=== PATIENT | female | born 1970 | race Caucasian/White ===

== ENCOUNTER 2021-05-29 18:17 | Emergency (ER) | payer SELFPAY ==
[~2021-05-29] VITALS: Ht 160 cm; Wt 70.0 kg
[2021-05-29] MEDS ORDERED: ONDANSETRON 4 MG/2 ML (SDV) Z0FRAN IVP STA (18:32)
[2021-05-29] MEDS ORDERED: PANTOPRAZOLE 40 MG (PROTONIX) VIAL IV STA (18:32)
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
[2021-05-29] MEDS ORDERED: NS IV 1000 ML 1,000 ML IV SCH (18:45)
[2021-05-29 18:54] LABS: BASOPHILS % (AUTO) 1 % (0-10); EOSINOPHILS % (AUTO) 1 % (0-10); HEMATOCRIT 42 % (35-52); HEMOGLOBIN 14.2 g/dL (11.5-16.0); LYMPHOCYTES # (AUTO) 1.5 X 10^3 (1.0-4.0); LYMPHOCYTES % (AUTO) 38 % (12-44); MEAN CORPUSCULAR HEMOGLOBIN 33 pg (25-34); MEAN CORPUSCULAR HGB CONC 34 g/dL (32-36); MEAN CORPUSCULAR VOLUME 98 fL (80-99); MEAN PLATELET VOLUME 10.7 fL (9.0-12.2); MONOCYTES # (AUTO) 0.2 X 10^3 (0.0-1.0); MONOCYTES % (AUTO) 6 % (0-12); NEUTROPHILS # (AUTO) 2.1 X 10^3 (1.8-7.8); NEUTROPHILS % (AUTO) 55 % (42-75); PLATELET COUNT 284 10^3/uL (130-400); WHITE BLOOD COUNT 3.9 10^3/uL (4.3-11.0)
[2021-05-29 18:57] LABS: HCG,QUALITATIVE URINE NEGATIVE (NEGATIVE)
[2021-05-29 18:58] LABS: BACTERIA,URINE NEGATIVE /HPF; BILIRUBIN,URINE NEGATIVE (NEGATIVE); CLARITY,URINE CLEAR; COLOR,URINE YELLOW; GLUCOSE, URINE (UA) NEGATIVE (NEGATIVE); KETONES,URINE NEGATIVE (NEGATIVE); LEUKOCYTE ESTERASE ,URINE NEGATIVE (NEGATIVE); NITRITE,URINE NEGATIVE (NEGATIVE); PH,URINE 8.5 (5-9); PROTEIN,URINE NEGATIVE (NEGATIVE); WBC,URINE 0-2 /HPF
[2021-05-29 19:03] LABS: AMPHETAMINE SCREEN, URINE NEGATIVE (NEGATIVE); BARBITURATE SCREEN URINE NEGATIVE (NEGATIVE); BENZODIAZEPINES SCREEN URINE NEGATIVE (NEGATIVE); CANNABINOID SCREEN, URINE POSITIVE (NEGATIVE); COCAINE SCREEN URINE NEGATIVE (NEGATIVE); METHADONE STAT NEGATIVE (NEGATIVE); METHAMPHETAMINE SCREEN URINE S NEGATIVE (NEGATIVE); OPIATE SCREEN URINE NEGATIVE (NEGATIVE); OXYCODONE STAT NEGATIVE (NEGATIVE); PROPOXYPHENE STAT NEGATIVE (NEGATIVE); TRICYCLIC ANTIDEPRESSANTS SCRE NEGATIVE (NEGATIVE)
[2021-05-29 19:11] LABS: BUN/CREATININE RATIO 13; CARBON DIOXIDE 29 MMOL/L (21-32); CHLORIDE 103 MMOL/L (98-107); CREATININE SERUM 0.78 MG/DL (0.60-1.30); GFR ESTIMATED 78; POTASSIUM 4.4 MMOL/L (3.6-5.0); SODIUM 141 MMOL/L (135-145)
[2021-05-29 19:12] LABS: ACETAMINOPHEN < 10 UG/ML (10-30); ALANINE AMINOTRANSFERASE 20 U/L (0-55); ALBUMIN 4.1 GM/DL (3.2-4.5); ALKALINE PHOSPHATASE 97 U/L (40-136); BILIRUBIN,TOTAL 0.4 MG/DL (0.1-1.0); CALCIUM 8.6 MG/DL (8.5-10.1); GLUCOSE 93 MG/DL (70-105); SALICYLATE < 0.3 MG/DL (5.0-20.0); TOTAL PROTEIN 6.8 GM/DL (6.4-8.2)
[2021-05-29] MEDS ORDERED: METOCLOPRAMIDE INJ 10 MG/2 ML (REGLAN) IVP STA (19:52)
[2021-05-29] MEDS ORDERED: diphenhydrAMINE 50 MG/ML INJ (BENADRYL) IVP STA (19:52)
[2021-05-29] MEDS ORDERED: MTC10T PO (20:02)
[2021-05-29 20:14] VITALS: BP 114/70
== END 2021-05-29 20:15 | disposition home or self-care (01) ==
LOC: ER FS 18:21
DX: F32.9 Major depressive disorder, single episode, unspecified (principal); F10.129 Alcohol abuse with intoxication, unspecified
CPT/HCPCS: 36415; 80053; 80306; 81000; 83690; 84703; 85025; 93005; 99284; G0480 ×3; 80320; 80329

== ENCOUNTER 2021-08-05 08:12 | Emergency (ER) | payer SELFPAY ==
[~2021-08-05] VITALS: Ht 165 cm; Wt 60.0 kg
[~2021-08-05 08:12] MED LIST: MTC10T PO
[2021-08-05 08:39] VITALS: BP 140/108
[2021-08-05] MEDS ORDERED: RX-LORAZEPAM (ATIVAN) 0.5 MG TAB PPK#4 PO STA (08:43)
[2021-08-05] MEDS ORDERED: HYDR50TA76 PO (08:48)
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
== END 2021-08-05 08:55 | disposition home or self-care (01) ==
LOC: EDUNIT# 08:12 → ER FS 08:15
DX: G47.01 Insomnia due to medical condition (principal); F41.9 Anxiety disorder, unspecified; Z79.899 Other long term (current) drug therapy

== ENCOUNTER 2021-08-27 14:42 | Emergency (ER) | payer SELFPAY ==
[~2021-08-27] VITALS: Ht 167.7 cm; Wt 68.0 kg
[~2021-08-27 14:42] MED LIST changes: +HYDR50TA76 PO
[2021-08-27] MEDS ORDERED: LORazepam INJ 2 MG/ML (ATIVAN) VIAL IVP STA ×2 (14:57→16:40)
[2021-08-27] MEDS ORDERED: NS IV 1000 ML 1,000 ML IV STA ×2 (14:57→15:38)
[2021-08-27 15:11] LABS: HEMATOCRIT 45 % (35-52); HEMOGLOBIN 15.5 g/dL (11.5-16.0); LYMPHOCYTES % (AUTO) 43 % (12-44); MEAN CORPUSCULAR HEMOGLOBIN 32 pg (25-34); MEAN CORPUSCULAR HGB CONC 35 g/dL (32-36); MEAN CORPUSCULAR VOLUME 93 fL (80-99); MEAN PLATELET VOLUME 10.2 fL (9.0-12.2); NEUTROPHILS % (AUTO) 47 % (42-75); PLATELET COUNT 262 10^3/uL (130-400); WHITE BLOOD COUNT 3.1 10^3/uL (4.3-11.0)
[2021-08-27 15:12] LABS: BASOPHILS # (AUTO) 0.1 10^3/uL (0.0-0.1); BASOPHILS % (AUTO) 2 % (0-10); EOSINOPHILS % (AUTO) 0 % (0-10); LYMPHOCYTES # (AUTO) 1.3 X 10^3 (1.0-4.0); MONOCYTES # (AUTO) 0.2 X 10^3 (0.0-1.0); MONOCYTES % (AUTO) 8 % (0-12); NEUTROPHILS # (AUTO) 1.4 X 10^3 (1.8-7.8)
[2021-08-27 15:14] LABS: BILIRUBIN,URINE NEGATIVE (NEGATIVE); CLARITY,URINE CLEAR; COLOR,URINE YELLOW; GLUCOSE, URINE (UA) NEGATIVE (NEGATIVE); KETONES,URINE NEGATIVE (NEGATIVE); LEUKOCYTE ESTERASE ,URINE NEGATIVE (NEGATIVE); NITRITE,URINE NEGATIVE (NEGATIVE); PROTEIN,URINE NEGATIVE (NEGATIVE)
--- NOTE | 2021-08-27 15:17 | ED General ---
General Chief Complaint: Substance Abuse Stated Complaint: TREMORS; COVID+ Source of Information: Patient, Family Exam Limitations: Intoxication History of Present Illness Date Seen by Provider: Aug 27, 2021 Time Seen by Provider: 14:43 Initial Comments 50 yo female presenting by private vehicle by family members with concerns for tremors and altered mental status. She was diagnosed with Covid 12-13 days ago. she has also been drinking Vodka heavily recently. Family advised the nurses that pt has history of problems with alcohol abuse and they found her at home next to an empty bottle of Vodka. She is anxious and twitching and flailing on the bed. Associated Systoms: No Chest Pain; Cough; No Diaphoresis, No Fever/Chills, No Headaches; Loss of Appetite, Malaise; No Nausea/Vomiting, No Rash, No Seizure; Shortness of Air; No Syncope; Weakness Allergies and Home Medications Allergies Coded Allergies: No Known Drug Allergies (Unverified , 05/29/21) Patient Home Medication List Home Medication List Reviewed: Yes Hydroxyzine HCl (Hydroxyzine HCl) 50 Mg Tablet, 50 MG PO DAILY PRN for SLEEP Prescribed by: KATE MCGARRY on 08/27/211815 Metoclopramide HCl (Metoclopramide HCl) 10 Mg Tablet, 10 MG PO Q6H PRN for NAUSEA/VOMITING Prescribed by: KATE MCGARRY on 05/29/212001 Review of Systems Review of Systems Constitutional: No fever; malaise EENTM: nose congestion Respiratory: cough, short of breath Cardiovascular: No chest pain Gastrointestinal: No nausea, No vomiting Genitourinary: No dysuria Musculoskeletal: no symptoms reported Skin: No rash Psychiatric/Neurological: Anxiety, Emotional Problems; Denies Seizure Hematologic/Lymphatic: Denies Blood Clots Difficult to obtain ROS and history from patient as she had to be redirected several times and was easily distracted before providing answers to questions Past Dqawhpf-Ftjcjy-Blspom Hx Patient Social History Tobacco Use?: No Smoking Status: Never a Smoker Substance use?: No Alcohol Use?: Yes Alcohol type: Hard Liquor Alcohol Frequency: Daily Pt feels they are or have been: No Past Medical History Surgery/Hospitalization HX: ANXIETY; DEPRESSION,Hypothyroid, Alcohol Abuse Surgeries: No Respiratory: No Cardiac: No Neurological: No Reproductive Disorders: No Genitourinary: No Gastrointestinal: No Musculoskeletal: No Endocrine: No HEENT: No Psychosocial: Yes Anxiety, PTSD, Depression Physical Exam Vital Signs Vital Signs - First Documented 08/27/21 14:45 Temp 36.7 Pulse 120 Resp 18 B/P (MAP) 140/103 (115) Pulse Ox 100 O2 Delivery Room Air Capillary Refill : Height, Weight, BMI Height: '" Weight: lbs. oz. kg; 22.00 BMI Method: General Appearance: Anxious, Other (twitching and flailing about on the bed, hyperventilating at times, disheveled appearance) HEENT: PERRL/EOMI, Pharynx Normal, Moist Mucous Membranes Neck: Full Range of Motion, Normal Inspection, Non Tender, Supple Respiratory: Chest Non Tender, Lungs Clear, Normal Breath Sounds, Other (hyperventilating at times) Cardiovascular: Normal Peripheral Pulses, Tachycardia Gastrointestinal: Normal Bowel Sounds, No Pulsatile Mass, Non Tender, Soft Rectal: Deferred Extremity: Normal Capillary Refill, Normal Inspection, Normal Range of Motion, No Calf Tenderness, No Pedal Edema Neurologic/Psychiatric: Alert, Other (anxious and not answering orientation questions) Skin: Normal Color, Warm/Dry Focused Exam Lactate Level 08/27/21 15:10: Lactic Acid Level 4.17*H 08/27/21 17:20: Lactic Acid Level 3.23*H Lactic Acid Level Laboratory Tests Test 08/27/21 15:10 08/27/21 17:20 Lactic Acid Level 4.17 MMOL/L (0.50-2.00) *H 3.23 MMOL/L (0.50-2.00) *H Progress/Results/Core Measures Suspected Sepsis SIRS Temperature: Pulse: Respiratory Rate: Laboratory Tests 08/27/21 15:02: White Blood Count 3.1L Blood Pressure / Mean: 08/27/21 15:10: Lactic Acid Level 4.17*H 08/27/21 17:20: Lactic Acid Level 3.23*H Laboratory Tests 08/27/21 15:02: Creatinine 0.76, Platelet Count 262, Total Bilirubin 0.4 Results/Orders Lab Results Laboratory Tests Test 08/27/21 14:58 08/27/21 15:02 08/27/21 15:10 08/27/21 17:20 Range/Units Urine Color YELLOW Urine Clarity CLEAR Urine pH 6.0 5-9 Urine Specific [place] 1.010 L 1.016-1.022 Urine Protein NEGATIVE NEGATIVE Urine Glucose (UA) NEGATIVE NEGATIVE Urine Ketones NEGATIVE NEGATIVE Urine Nitrite NEGATIVE NEGATIVE Urine Bilirubin NEGATIVE NEGATIVE Urine Urobilinogen 0.2 < = 1.0 MG/DL Urine Leukocyte Esterase NEGATIVE NEGATIVE Urine RBC (Auto) TRACE-I H NEGATIVE Urine RBC RARE /HPF Urine WBC NONE /HPF Urine Squamous Epithelial Cells RARE /HPF Urine Crystals PRESENT H /LPF Urine Amorphous Sediment FEW AIDE URATES H /LPF Urine Bacteria NEGATIVE /HPF Urine Casts NONE /LPF Urine Mucus SMALL H /LPF Urine Culture Indicated NO Urine Opiates Screen NEGATIVE NEGATIVE Urine Oxycodone Screen NEGATIVE NEGATIVE Urine Methadone Screen NEGATIVE NEGATIVE Urine Propoxyphene Screen NEGATIVE NEGATIVE Urine Barbiturates Screen NEGATIVE NEGATIVE Ur Tricyclic Antidepressants Screen NEGATIVE NEGATIVE Urine Phencyclidine Screen NEGATIVE NEGATIVE Urine Amphetamines Screen NEGATIVE NEGATIVE Urine Methamphetamines Screen NEGATIVE NEGATIVE Urine Benzodiazepines Screen NEGATIVE NEGATIVE Urine Cocaine Screen NEGATIVE NEGATIVE Urine Cannabinoids Screen NEGATIVE NEGATIVE White Blood Count 3.1 L 4.3-11.0 10^3/uL Red Blood Count 4.80 3.80-5.11 10^6/uL Hemoglobin 15.5 11.5-16.0 g/dL Hematocrit 45 35-52 % Mean Corpuscular Volume 93 80-99 fL Mean Corpuscular Hemoglobin 32 25-34 pg Mean Corpuscular Hemoglobin Concent 35 32-36 g/dL Red Cell Distribution Width 11.9 10.0-14.5 % Platelet Count 262 130-400 10^3/uL Mean Platelet Volume 10.2 9.0-12.2 fL Immature Granulocyte % (Auto) 0 % Neutrophils (%) (Auto) 47 42-75 % Lymphocytes (%) (Auto) 43 12-44 % Monocytes (%) (Auto) 8 0-12 % Eosinophils (%) (Auto) 0 0-10 % Basophils (%) (Auto) 2 0-10 % Neutrophils # (Auto) 1.4 L 1.8-7.8 X 10^3 Lymphocytes # (Auto) 1.3 1.0-4.0 X 10^3 Monocytes # (Auto) 0.2 0.0-1.0 X 10^3 Eosinophils # (Auto) 0.0 0.0-0.3 10^3/uL Basophils # (Auto) 0.1 0.0-0.1 10^3/uL Immature Granulocyte # (Auto) 0.0 0.0-0.1 10^3/uL D-Dimer 0.43 0.00-0.49 UG/ML Sodium Level 139 135-145 MMOL/L Potassium Level 4.0 3.6-5.0 MMOL/L Chloride Level 98 98-107 MMOL/L Carbon Dioxide Level 26 21-32 MMOL/L Anion Gap 15 H 5-14 MMOL/L Blood Urea Nitrogen 12 7-18 MG/DL Creatinine 0.76 0.60-1.30 MG/DL Estimat Glomerular Filtration Rate 95 BUN/Creatinine Ratio 16 Glucose Level 104 70-105 MG/DL Calcium Level 8.7 8.5-10.1 MG/DL Corrected Calcium 8.5 8.5-10.1 MG/DL Magnesium Level 2.1 1.6-2.4 MG/DL Total Bilirubin 0.4 0.1-1.0 MG/DL Aspartate Amino Transf (AST/SGOT) 143 H 5-34 U/L Alanine Aminotransferase (ALT/SGPT) 63 H 0-55 U/L Alkaline Phosphatase 135 40-136 U/L Troponin I < 0.30 <0.30 NG/ML Pro-B-Type Natriuretic Peptide 54.5 <75.0 PG/ML Total Protein 7.2 6.4-8.2 GM/DL Albumin 4.2 3.2-4.5 GM/DL Lipase 50 8-78 U/L Serum Test, Qualitative NEGATIVE NEGATIVE Salicylates Level < 0.3 L 5.0-20.0 MG/DL Acetaminophen Level < 10 L 10-30 UG/ML Serum Alcohol 342 *H <10 MG/DL Lactic Acid Level 4.17 *H 3.23 *H 0.50-2.00 MMOL/L Influenza Type A Antigen NEGATIVE NEGATIVE Influenza Type B Antigen NEGATIVE NEGATIVE SARS-CoV-2 RNA (RT-PCR) Not Detected Not Detecte My Orders Orders - KATE MCGARRY MD Ua Culture If Indicated (08/27/21 14:57) Cbc With Automated Diff (08/27/21 14:57) Comprehensive Metabolic Panel (08/27/21 14:57) Alcohol (08/27/21 14:57) Drug Screen Stat (Urine) (08/27/21 14:57) Acetaminophen (08/27/21 14:57) Salicylate (08/27/21 14:57) Ekg Tracing (08/27/21 14:57) Ed Iv/Invasive Line Start (08/27/21 14:57) Monitor-Rhythm Ecg Trace Only (08/27/21 14:57) Blood Culture (08/27/21 14:57) Lactic Acid Analyzer (08/27/21 14:57) Magnesium (08/27/21 14:57) Covid 19 Inhouse Test (08/27/21 14:57) Chest 1 View Ap/Pa Only (08/27/21 14:57) Ct Head Wo (08/27/21 14:57) Troponin I Fs (08/27/21 14:57) Probnp Fs (08/27/21 14:57) Isolation Central Supply Req (08/27/21 14:57) Hcg,Qualitative Serum (08/27/21 14:57) Fibrin Degradation Products (08/27/21 14:57) Lipase (08/27/21 14:57) Ns Iv 1000 Ml (Sodium Chloride 0.9%) (08/27/21 14:57) Lorazepam Injection (Ativan Injection) (08/27/21 14:57) Influenza A & B Antigens (08/27/21 15:38) Ns Iv 1000 Ml (Sodium Chloride 0.9%) (08/27/21 15:38) Ct Chest W (08/27/21 16:03) Iohexol Injection (Omnipaque 350 Mg/Ml 1 (08/27/21 16:15) Received Contrast (Hold Metformin- Contr (08/27/21 16:15) Sodium Chloride Flush (Catheter Flush Sy (08/27/21 16:15) Ns (Ivpb) (Sodium Chloride 0.9% Ivpb Bag (08/27/21 16:15) Lorazepam Injection (Ativan Injection) (08/27/21 16:40) Medications Given in ED Current Medications Medications Dose Ordered Sig/Manda Route Start Time Stop Time Status Last Admin Dose Admin Iohexol 75 ml ONCE ONCE IV 08/27/21 16:15 08/27/21 16:16 DC 08/27/21 16:25 75 ML Sodium Chloride 10 ml NEEDED PRN IV 08/27/21 16:15 08/27/21 16:25 10 ML Sodium Chloride 100 ml ONCE ONCE IV 08/27/21 16:15 08/27/21 16:16 DC 08/27/21 16:25 100 ML Vital Signs/I&O 08/27/21 14:45 Temp 36.7 Pulse 120 Resp 18 B/P (MAP) 140/103 (115) Pulse Ox 100 O2 Delivery Room Air Capillary Refill : Progress Note #1: Progress Note Obtain basic lab and urine and urine drug screen straight cath. Give IV fluids for hydration. Since family reports that she has been drinking alcohol and was found next to empty vodka bottle will give a milligram of Ativan to try and help with her anxiety and agitation. Since she was recently positive for COVID we'll really swab for that and influenza. Obtain a chest x-ray since she was complaining of shortness of breath although her oxygen saturations are 98 to 100%. She is hyperventilating at times. Obtain a CT scan of her head to evaluate for possible stroke, mass or tumor, bleeding, sinus infection, swelling. Blood cultures and lactic acid with her report of recent COVID infection and having mental status changes. Obtain electrocardiogram with cardiac labs to look for acute coronary syndrome or myocardial infarction or heart failure that might be contributing to her symptoms. Also in addition to the urine drug screen will obtain salicylate, aspirin, alcohol levels. Progress Note #2: Progress Note Labs show a mild drop in her white blood cell count to 3.1. She has no signs of UTI on her urinalysis. Her urine drug screen was negative. Her alcohol level was 342. She had negative salicylate and acetaminophen levels. Her chemistry panel did not demonstrate any acute coronary syndrome or elevation of the cardiac enzymes. Her LFTs were slightly elevated to go along with her alcohol history. Her D-dimer was negative. hCG serum test was negative as well. Her CT head showed some mild sinus disease. She had no acute intracranial process. Her chest x-ray did not show any acute infiltrate or effusion but she did have a density off of the right side and posterior side of her heart. Thought to be a benign cyst or benign structure but with no priors to compare to a CT scan of the chest was recommended. For her elevated lactic acid we'll give additional IV fluids for hydration. There is no definite source of infection so the lactic acidosis is likely due to alcohol intoxication and hyperventilation. 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 No acute significant finding otherwise. Patient more relaxed after 2nd dose of ativan but still asking for medicine for anxiety and sleep for home. When she was here just prior to she was prescribed 2 weeks worth of hydroxyzine to help with sleep. We will refill that prescription and advised the patient she needs to call Monday morning to get a follow-up appointment with the clinic. Counseled to not drink so much alcohol and to check with the clinic to see if she needed resources about helping to stop drinking Diagnostic Imaging Diagonstic Imaging: Xray Plain Films/CT/US/NM/MRI: chest Comments [facility] [place] [place] NAME: NELLY GALEANO [facility] REC#: [id number] PT STATUS: REG ER : 1970 PHYSICIAN: KATE MCGARRY MD ADMIT DATE: 08/27/21/ER FS Signed Date of Exam:08/27/21 CHEST 1 VIEW AP/PA ONLY INDICATION: Confusion. COMPARISON: No priors. FINDINGS: No infiltrate, failure pattern, effusion, or pneumothorax. No free air beneath the diaphragms. Hilar and mediastinal contours were normal. A lobulated density projects right lateral to the inferior right heart border. This is probably a pericardial cyst or other benign etiology; however, given the absence of priors to confirm its long-term stability, correlation with a chest CT suggested. IMPRESSION: 1. No acute appearing cardiopulmonary abnormality. 2. Abnormal contour along the inferior right heart border, likely incidental but confirmation with CT chest recommended. Dictated by: Dictated on workstation # [id number] Dict: 08/27/21 1537 Trans: 08/27/21 1546 [id number] Interpreted by: BRITTANY BOTELLO Electronically signed by: BRITTANY BOETLLO 08/27/21 1546 Reviewed: Reviewed by Me Diagonstic Imaging: CT Plain Films/CT/US/NM/MRI: head Comments [facility] [place] [place] NAME: NELLY GALEANO MED REC#: [id number] PT STATUS: REG ER : 1970 PHYSICIAN: KATE MCGARRY MD ADMIT DATE: 08/27/21/ER FS Draft Date of Exam:08/27/21 CT HEAD WO INDICATION: Altered mental status. TECHNIQUE: Multiple contiguous axial images were obtained through the brain without the use of intravenous contrast. Auto Exposure Controls were utilized during the CT exam to meet ALARA standards for radiation dose reduction. COMPARISON: There is no prior study for comparison. FINDINGS: There were no extra-axial fluid collections. No intracranial hemorrhage. No intracranial mass or mass effect. No midline shift. The ventricles are normal in size and position. There were no focal parenchymal abnormalities in the brain. Calvarial windows were unremarkable. There is opacification of the right frontal sinus. Remaining sinuses appeared clear. Mastoid air cells are well aerated. Orbital contents were unremarkable. IMPRESSION: No acute intracranial abnormality. Note is made of opacification of the right frontal sinus. Dictated on workstation # [id number] Dict: 08/27/21 1535 Trans: 08/27/21 1544 [id number] Interpreted by: ZOHRA STEPHEN MD Electronically signed by: Reviewed: Reviewed by Pa Diagonstic Imaging: CT Plain Films/CT/US/NM/MRI: chest Comments [facility] [place], [place] NAME: NELLY GALEANO [facility] REC#: [id number] PT STATUS: REG ER : 1970 PHYSICIAN: KATE MCGARRY MD ADMIT DATE: 08/27/21/ER FS Signed Date of Exam:08/27/21 CT CHEST W EXAMINATION: CT chest with intravenous contrast. TECHNIQUE: Multiple contiguous axial images were obtained through the chest after the uneventful administration of intravenous contrast. All CT scans use one or more of the following dose optimizing techniques: Automated exposure control, MA and/or KvP adjustment based on patient size and exam type or iterative reconstruction. HISTORY: Abnormal chest radiograph. COMPARISON: None available. FINDINGS: There is no edema or pneumonia. No pleural effusion. No pneumothorax. No suspicious nodules. There is no axillary or supraclavicular lymphadenopathy. There is no mediastinal lymphadenopathy. Heart size is normal. There are no coronary artery calcifications. No pericardial effusion. Aorta is normal in caliber. The abnormality along the right heart border on prior radiograph is a small fat-containing foramen of Morgagni's hernia. Limited views of the upper abdomen show focal fat at the falciform ligament of the liver. There are no suspicious osseous lesions. IMPRESSION: 1. 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 Dictated by: Dictated on workstation # [id number] Dict: 08/27/21 1636 Trans: 08/27/21 1651 [id number] Interpreted by: BELLO SLOAN MD Electronically signed by: BELLO SLOAN MD 08/27/21 1651 Departure Impression Primary Impression: Alcohol intoxication Qualified Codes: F10.920 - Alcohol use, unspecified with intoxication, uncomplicated Additional Impressions: Anxiety Insomnia Qualified Codes: G47.00 - Insomnia, unspecified Disposition: 01 HOME, SELF-CARE Condition: Stable Departure-Patient Inst. Decision time for Depature: 18:13 Referrals: [facility] (PCP/Family) Primary Care Physician Patient Instructions: ALCOHOL AND SUBSTANCE ABUSE, Anxiety, Adult ED, Alcohol Intoxication ED Add. Discharge Instructions: Try the medicine for anxiety and to help you rest. Call the [facility] clinic at [phone] to get an appointment for follow up and they can help you with your insomnia, anxiety and depression. They could help refer you to alcohol and drug treatment if you wanted additional assistance with that as well. All discharge instructions reviewed with patient and/or family. Voiced understanding. Scripts Hydroxyzine HCl (Hydroxyzine HCl) 50 Mg Tablet 50 MG PO DAILY PRN for SLEEP for 14 Days, #14 TAB Prov: KATE MCGARRY MD 08/27/21 KATE MCGARRY MD Aug 27, 2021 15:17
[2021-08-27 15:26] LABS: AMORPHOUS SEDIMENT,UR FEW AMOR URATES /LPF; BACTERIA,URINE NEGATIVE /HPF; RBC,URINE RARE /HPF; SQUAMOUS EPITHELIAL CELL,UR RARE /HPF
[2021-08-27 15:28] LABS: AMPHETAMINE SCREEN, URINE NEGATIVE (NEGATIVE); BARBITURATE SCREEN URINE NEGATIVE (NEGATIVE); BENZODIAZEPINES SCREEN URINE NEGATIVE (NEGATIVE); CANNABINOID SCREEN, URINE NEGATIVE (NEGATIVE); COCAINE SCREEN URINE NEGATIVE (NEGATIVE); METHADONE STAT NEGATIVE (NEGATIVE); METHAMPHETAMINE SCREEN URINE S NEGATIVE (NEGATIVE); OPIATE SCREEN URINE NEGATIVE (NEGATIVE); OXYCODONE STAT NEGATIVE (NEGATIVE); PROPOXYPHENE STAT NEGATIVE (NEGATIVE); TRICYCLIC ANTIDEPRESSANTS SCRE NEGATIVE (NEGATIVE)
[2021-08-27 15:31] LABS: ACETAMINOPHEN < 10 UG/ML (10-30); ALANINE AMINOTRANSFERASE 63 U/L (0-55); ALBUMIN 4.2 GM/DL (3.2-4.5); ALKALINE PHOSPHATASE 135 U/L (40-136); BILIRUBIN,TOTAL 0.4 MG/DL (0.1-1.0); BUN/CREATININE RATIO 16; CALCIUM 8.7 MG/DL (8.5-10.1); CARBON DIOXIDE 26 MMOL/L (21-32); CHLORIDE 98 MMOL/L (98-107); CREATININE SERUM 0.76 MG/DL (0.60-1.30); GFR ESTIMATED 95; GLUCOSE 104 MG/DL (70-105); MAGNESIUM 2.1 MG/DL (1.6-2.4); SALICYLATE < 0.3 MG/DL (5.0-20.0); SODIUM 139 MMOL/L (135-145); TOTAL PROTEIN 7.2 GM/DL (6.4-8.2)
--- NOTE | 2021-08-27 15:41 | Diagnostic Imaging Report ---
INDICATION: Confusion. COMPARISON: No priors. FINDINGS: No infiltrate, failure pattern, effusion, or pneumothorax. No free air beneath the diaphragms. Hilar and mediastinal contours were normal. A lobulated density projects right lateral to the inferior right heart border. This is probably a pericardial cyst or other benign etiology; however, given the absence of priors to confirm its long-term stability, correlation with a chest CT suggested. IMPRESSION: 1. No acute appearing cardiopulmonary abnormality. 2. Abnormal contour along the inferior right heart border, likely incidental but confirmation with CT chest recommended. Dictated by: Dictated on workstation # [id number]
--- NOTE | 2021-08-27 15:44 | Diagnostic Imaging Report ---
INDICATION: Altered mental status. TECHNIQUE: Multiple contiguous axial images were obtained through the brain without the use of intravenous contrast. Auto Exposure Controls were utilized during the CT exam to meet ALARA standards for radiation dose reduction. COMPARISON: There is no prior study for comparison. FINDINGS: There were no extra-axial fluid collections. No intracranial hemorrhage. No intracranial mass or mass effect. No midline shift. The ventricles are normal in size and position. There were no focal parenchymal abnormalities in the brain. Calvarial windows were unremarkable. There is opacification of the right frontal sinus. Remaining sinuses appeared clear. Mastoid air cells are well aerated. Orbital contents were unremarkable. IMPRESSION: No acute intracranial abnormality. Note is made of opacification of the right frontal sinus. Dictated by: Dictated on workstation # [id number]
[2021-08-27] MEDS ORDERED: CATHETER FLUSH 10 ML SYR IV PRN (16:15)
[2021-08-27] MEDS ORDERED: NS 100 ML (IVPB) BAG IV ONE (16:15)
[2021-08-27] MEDS ORDERED: HOLD METFORMIN - RECEIVED CONTRAST 20 ML VIAL IV SCH (16:15)
[2021-08-27] MEDS ORDERED: IOHEXOL 350 MG/ML 100 ML (OMNIPAQUE 350) VIAL IV ONE (16:15)
--- NOTE | 2021-08-27 16:40 | Diagnostic Imaging Report ---
EXAMINATION: CT chest with intravenous contrast. TECHNIQUE: Multiple contiguous axial images were obtained through the chest after the uneventful administration of intravenous contrast. All CT scans use one or more of the following dose optimizing techniques: Automated exposure control, MA and/or KvP adjustment based on patient size and exam type or iterative reconstruction. HISTORY: Abnormal chest radiograph. COMPARISON: None available. FINDINGS: There is no edema or pneumonia. No pleural effusion. No pneumothorax. No suspicious nodules. There is no axillary or supraclavicular lymphadenopathy. There is no mediastinal lymphadenopathy. Heart size is normal. There are no coronary artery calcifications. No pericardial effusion. Aorta is normal in caliber. The abnormality along the right heart border on prior radiograph is a small fat-containing foramen of Morgagni's hernia. Limited views of the upper abdomen show focal fat at the falciform ligament of the liver. There are no suspicious osseous lesions. IMPRESSION: 1. 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 Dictated by: Dictated on workstation # [id number]
[2021-08-27] MEDS ORDERED: HYDR50TA76 PO (18:16)
[2021-08-27 18:30] VITALS: BP 133/87
== END 2021-08-27 18:45 | disposition home or self-care (01) ==
LOC: EDUNIT# 14:42 → ER FS 14:44
DX: F10.920 Alcohol use, unspecified with intoxication, uncomplicated (principal); F41.9 Anxiety disorder, unspecified; G47.00 Insomnia, unspecified; Z20.822 Contact with and (suspected) exposure to COVID-19; Z86.16 Personal history of COVID-19; F32.A Depression, unspecified; F43.10 Post-traumatic stress disorder, unspecified; Y90.8 Blood alcohol level of 240 mg/100 ml or more
CPT/HCPCS: 36415; 51702; 70450; 71045; 71260; 80053; 80306; 81000; 83605; 83690; 83735; 83880; 84484; 84703; 85025; 85379; 87040; 87636; 87804; 93005; 93041; 96374; 96376; 99284; G0480 ×3; 80320; 80329

== ENCOUNTER 2021-09-25 08:55 | Emergency (ER) | payer SELFPAY ==
[~2021-09-25] VITALS: Ht 160 cm; Wt 68.0 kg
[2021-09-25] MEDS ORDERED: NS IV 1000 ML 1,000 ML IV STA (09:11)
[2021-09-25] MEDS ORDERED: LORazepam INJ 2 MG/ML (ATIVAN) VIAL IVP STA (09:11)
[2021-09-25] MEDS ORDERED: KETOROLAC 30 MG/ML VIAL IVP STA (09:11)
[2021-09-25] MEDS ORDERED: PANTOPRAZOLE 40 MG (PROTONIX) VIAL IV STA (09:11)
[2021-09-25 09:15] LABS: BACTERIA,URINE FEW /HPF; BILIRUBIN,URINE NEGATIVE (NEGATIVE); CLARITY,URINE CLEAR; COLOR,URINE YELLOW; GLUCOSE, URINE (UA) NEGATIVE (NEGATIVE); KETONES,URINE NEGATIVE (NEGATIVE); LEUKOCYTE ESTERASE ,URINE 2+ (NEGATIVE); NITRITE,URINE NEGATIVE (NEGATIVE); PH,URINE 6.5 (5-9); PROTEIN,URINE NEGATIVE (NEGATIVE)
[2021-09-25 09:16] LABS: YEAST,URINE FEW /HPF
[2021-09-25 09:17] LABS: BASOPHILS # (AUTO) 0.1 10^3/uL (0.0-0.1); BASOPHILS % (AUTO) 1 % (0-10); EOSINOPHILS % (AUTO) 0 % (0-10); HEMATOCRIT 40 % (35-52); HEMOGLOBIN 13.9 g/dL (11.5-16.0); LYMPHOCYTES # (AUTO) 1.1 X 10^3 (1.0-4.0); LYMPHOCYTES % (AUTO) 22 % (12-44); MEAN CORPUSCULAR HEMOGLOBIN 32 pg (25-34); MEAN CORPUSCULAR HGB CONC 35 g/dL (32-36); MEAN CORPUSCULAR VOLUME 92 fL (80-99); MEAN PLATELET VOLUME 10.1 fL (9.0-12.2); MONOCYTES # (AUTO) 0.4 X 10^3 (0.0-1.0); MONOCYTES % (AUTO) 9 % (0-12); NEUTROPHILS # (AUTO) 3.4 X 10^3 (1.8-7.8); NEUTROPHILS % (AUTO) 68 % (42-75); PLATELET COUNT 271 10^3/uL (130-400)
--- NOTE | 2021-09-25 09:19 | ED General ---
General Chief Complaint: Abdominal/GI Problems Stated Complaint: VOMITING Source of Information: Patient History of Present Illness Date Seen by Provider: Sep 25, 2021 Time Seen by Provider: 08:59 Initial Comments 50-year-old female presenting with complaints of not being able to eat or drink for the last 6 or 7 days. She states that she is very anxious and having a lot of issues right now. She denies following up with nurse practitioner Elma through the clinic during this last week while she was having problems. She states that they have prescribed something to help her sleep but that it was not helping. She denies having any medications to help with anxiety. She states that she has not been able to keep anything down however she has been drinking alcohol regularly. She did drink alcohol this morning already prior to coming to the emergency department. She states that she drove herself to the emergency department this morning. She denies being suicidal. She is immediately very defensive about her alcohol use when being asked how much she was drinking. She was here on August 27 with a very similar presentation other than at that time she had friends or family that had brought her and she was much more agitated on arrival. She reports having epigastric abdominal pain going through to her back. She denies having history of pancreatitis when asked about it but again becomes very defensive when asked about pancreatitis and its relation to alcohol drinking. Timing/Duration: 6-7 Days Severity: Severe Modifying Factors: worse with Eating Associated Systoms: No Chest Pain, No Cough, No Diaphoresis, No Fever/Chills, No Headaches, No Loss of Appetite, No Malaise; Nausea/Vomiting; No Rash, No Seizure, No Shortness of Air, No Syncope, No Weakness Allergies and Home Medications Allergies Coded Allergies: No Known Drug Allergies (Unverified , 05/29/21) Patient Home Medication List Home Medication List Reviewed: Yes Hydroxyzine HCl (Hydroxyzine HCl) 50 Mg Tablet, 50 MG PO DAILY PRN for SLEEP Prescribed by: KATE MCGARRY on 08/27/21 1816 Hydroxyzine HCl (Hydroxyzine HCl) 25 Mg Tablet, 25 MG PO TID PRN for anxiety Prescribed by: KATE MCGARRY on 09/25/21 1025 Metoclopramide HCl (Metoclopramide HCl) 10 Mg Tablet, 10 MG PO Q6H PRN for N AUSEA/VOMITING Prescribed by: KATE MCGARRY on 09/25/21 1025 Pantoprazole Sodium (Pantoprazole Sodium) 40 Mg Tablet.dr, 40 MG PO DAILY Prescribed by: KATE RAMOSRT on 09/25/21 1025 Review of Systems Review of Systems Constitutional: No chills, No diaphoresis, No fever EENTM: no symptoms reported Respiratory: no symptoms reported Cardiovascular: no symptoms reported Gastrointestinal: see HPI Genitourinary: No decreased output, No discharge, No dysuria, No frequency Musculoskeletal: no symptoms reported Skin: No rash Psychiatric/Neurological: Anxiety, Depressed, Emotional Problems; Denies Headache Hematologic/Lymphatic: Denies Blood Clots Past Tskybyu-Dpgeoy-Zvangt Hx Patient Social History Alcohol Frequency: Daily Past Medical History Surgery/Hospitalization HX: ANXIETY; DEPRESSION,Hypothyroid, Alcohol Abuse Surgeries: No Respiratory: No Cardiac: No Neurological: No Reproductive Disorders: No Genitourinary: No Gastrointestinal: No Musculoskeletal: No Endocrine: No HEENT: No Psychosocial: Yes Anxiety, PTSD, Depression Physical Exam Vital Signs Vital Signs - First Documented 09/25/21 09:00 Temp 36.7 Pulse 85 Resp 18 B/P (MAP) 134/92 (106) Pulse Ox 100 O2 Delivery Room Air Capillary Refill : Height, Weight, BMI Height: '" Weight: lbs. oz. kg; 24.00 BMI Method: General Appearance: Anxious, Other (Appears older than stated age) HEENT: PERRL/EOMI, Pharynx Normal Neck: Full Range of Motion, Normal Inspection, Non Tender, Supple Respiratory: Chest Non Tender, Lungs Clear, Normal Breath Sounds, No Respiratory Distress Cardiovascular: Regular Rate, Rhythm, Normal Peripheral Pulses Gastrointestinal: Normal Bowel Sounds, No Pulsatile Mass, Soft; No Distended, No Guarding, No Rebound; Tenderness (epigastric) Rectal: Deferred Extremity: Normal Capillary Refill, Normal Inspection, No Pedal Edema Neurologic/Psychiatric: Alert, Oriented x3, chemist organic II-XII Norm as Tested, Other (anxious) Skin: Normal Color, Warm/Dry Progress/Results/Core Measures Suspected Sepsis SIRS Temperature: Pulse: Respiratory Rate: Laboratory Tests 09/25/21 09:05: White Blood Count 5.0 Blood Pressure / Mean: Laboratory Tests 09/25/21 09:05: Creatinine 0.78, Platelet Count 271, Total Bilirubin 0.8 Results/Orders Lab Results Laboratory Tests Test 09/25/21 09:00 09/25/21 09:05 Range/Units Urine Color YELLOW Urine Clarity CLEAR Urine pH 6.5 5-9 Urine Specific [place] 1.010 L 1.016-1.022 Urine Protein NEGATIVE NEGATIVE Urine Glucose (UA) NEGATIVE NEGATIVE Urine Ketones NEGATIVE NEGATIVE Urine Nitrite NEGATIVE NEGATIVE Urine Bilirubin NEGATIVE NEGATIVE Urine Urobilinogen 0.2 < = 1.0 MG/DL Urine Leukocyte Esterase 2+ H NEGATIVE Urine RBC (Auto) TRACE-I H NEGATIVE Urine RBC 5-10 H /HPF Urine WBC 10-25 H /HPF Urine Squamous Epithelial Cells 5-10 /HPF Urine Crystals NONE /LPF Urine Bacteria FEW H /HPF Urine Casts NONE /LPF Urine Mucus MODERATE H /LPF Urine Yeast FEW H /HPF Urine Culture Indicated YES Urine Opiates Screen NEGATIVE NEGATIVE Urine Oxycodone Screen NEGATIVE NEGATIVE Urine Methadone Screen NEGATIVE NEGATIVE Urine Propoxyphene Screen NEGATIVE NEGATIVE Urine Barbiturates Screen NEGATIVE NEGATIVE Ur Tricyclic Antidepressants Screen NEGATIVE NEGATIVE Urine Phencyclidine Screen NEGATIVE NEGATIVE Urine Amphetamines Screen NEGATIVE NEGATIVE Urine Methamphetamines Screen NEGATIVE NEGATIVE Urine Benzodiazepines Screen NEGATIVE NEGATIVE Urine Cocaine Screen NEGATIVE NEGATIVE Urine Cannabinoids Screen NEGATIVE NEGATIVE White Blood Count 5.0 4.3-11.0 10^3/uL Red Blood Count 4.30 3.80-5.11 10^6/uL Hemoglobin 13.9 11.5-16.0 g/dL Hematocrit 40 35-52 % Mean Corpuscular Volume 92 80-99 fL Mean Corpuscular Hemoglobin 32 25-34 pg Mean Corpuscular Hemoglobin Concent 35 32-36 g/dL Red Cell Distribution Width 12.0 10.0-14.5 % Platelet Count 271 130-400 10^3/uL Mean Platelet Volume 10.1 9.0-12.2 fL Immature Granulocyte % (Auto) 0 % Neutrophils (%) (Auto) 68 42-75 % Lymphocytes (%) (Auto) 22 12-44 % Monocytes (%) (Auto) 9 0-12 % Eosinophils (%) (Auto) 0 0-10 % Basophils (%) (Auto) 1 0-10 % Neutrophils # (Auto) 3.4 1.8-7.8 X 10^3 Lymphocytes # (Auto) 1.1 1.0-4.0 X 10^3 Monocytes # (Auto) 0.4 0.0-1.0 X 10^3 Eosinophils # (Auto) 0.0 0.0-0.3 10^3/uL Basophils # (Auto) 0.1 0.0-0.1 10^3/uL Immature Granulocyte # (Auto) 0.0 0.0-0.1 10^3/uL Sodium Level 136 135-145 MMOL/L Potassium Level 3.6 3.6-5.0 MMOL/L Chloride Level 96 L 98-107 MMOL/L Carbon Dioxide Level 29 21-32 MMOL/L Anion Gap 11 5-14 MMOL/L Blood Urea Nitrogen 13 7-18 MG/DL Creatinine 0.78 0.60-1.30 MG/DL Estimat Glomerular Filtration Rate 92 BUN/Creatinine Ratio 17 Glucose Level 113 H 70-105 MG/DL Calcium Level 8.6 8.5-10.1 MG/DL Corrected Calcium 8.8 8.5-10.1 MG/DL Total Bilirubin 0.8 0.1-1.0 MG/DL Aspartate Amino Transf (AST/SGOT) 91 H 5-34 U/L Alanine Aminotransferase (ALT/SGPT) 47 0-55 U/L Alkaline Phosphatase 120 40-136 U/L Total Protein 6.6 6.4-8.2 GM/DL Albumin 3.7 3.2-4.5 GM/DL Lipase 43 8-78 U/L Salicylates Level < 0.3 L 5.0-20.0 MG/DL Acetaminophen Level < 10 L 10-30 UG/ML Serum Alcohol 229 H <10 MG/DL My Orders Orders - KATE MCGARRY MD Ua Culture If Indicated (09/25/21 09:10) Cbc With Automated Diff (09/25/21 09:10) Comprehensive Metabolic Panel (09/25/21 09:10) Alcohol (09/25/21 09:10) Drug Screen Stat (Urine) (09/25/21 09:10) Acetaminophen (09/25/21 09:10) Salicylate (09/25/21 09:10) Ekg Tracing (09/25/21 09:10) Ed Iv/Invasive Line Start (09/25/21 09:10) Monitor-Rhythm Ecg Trace Only (09/25/21 09:10) Ns Iv 1000 Ml (Sodium Chloride 0.9%) (09/25/21 09:11) Lorazepam Injection (Ativan Injection) (09/25/21 09:11) Pantoprazole Injection (Protonix Injecti (09/25/21 09:11) Ketorolac Injection (Toradol Injection) (09/25/21 09:11) Lipase (09/25/21 09:11) Ct Abdomen/Pelvis W (09/25/21 09:11) Iohexol Injection (Omnipaque 350 Mg/Ml 1 (09/25/21 09:30) Received Contrast (Hold Metformin- Contr (09/25/21 09:30) Sodium Chloride Flush (Catheter Flush Sy (09/25/21 09:30) Ns (Ivpb) (Sodium Chloride 0.9% Ivpb Bag (09/25/21 09:30) Urine Culture (09/25/21 09:00) Iohexol Injection (Omnipaque 350 Mg/Ml 1 (09/25/21 10:00) Received Contrast (Hold Metformin- Contr (09/25/21 10:00) Iohexol Injection (Omnipaque 350 Mg/Ml 1 (09/25/21 10:00) Medications Given in ED Current Medications Medications Dose Ordered Sig/Manda Route Start Time Stop Time Status Last Admin Dose Admin Sodium Chloride 10 ml NEEDED PRN IV 09/25/21 09:30 09/25/21 09:54 10 ML Sodium Chloride 100 ml ONCE ONCE IV 09/25/21 09:30 09/25/21 09:31 DC 09/25/21 09:53 80 ML Vital Signs/I&O 09/25/21 09/25/21 09:00 10:59 Temp 36.7 36.7 Pulse 85 83 Resp 18 16 B/P (MAP) 134/92 (106) 124/68 Pulse Ox 100 99 O2 Delivery Room Air Room Air Capillary Refill : Progress Note #1: Progress Note Check basic labs including urinalysis and urine drug screen with alcohol level. Check a lipase since she was having epigastric pain going through to her back and has a history of heavy alcohol abuse. Order CT scan of her abdomen and pelvis with IV contrast to evaluate for pancreatitis/gastritis/peptic ulcer disease/colitis/hepatitis/ascites/diverticulitis. Give IV fluids 1 L normal saline for hydration, Zofran 4 mg IV for nausea, Protonix 40 mg IV for gastric irritation due to alcohol abuse, Toradol 30 mg IV for pain. Progress Note #2: Progress Note Labs appear stable without acute significant normality other than her chronic alcoholism with an elevated alcohol level of 229. Her urinalysis does show some leukocyte esterase and white blood cells with bacteria for possible urinary tract infection. Her electrocardiogram appears stable from August 2021. Her lipase was normal. Her CT scan is pending. Progress Note #3: Progress Note CT scan does show some thickening of the distal part of the stomach for gastritis versus peptic ulcer disease. This would be consistent with her chronic alcoholism. Her other electrolytes appear stable. Will check on the patient and update her about her results. See about refill of the hydroxyzine for anxiety and encouraged her to work with nurse practitioner Elma in the [facility] clinic and consider checking with [facility] if she needs additional assistance with her reported PTSD and anxiety. Advised to use benadryl if needed to help her rest until s he can see clinic and provider about sleep and anxiety. Denies UTI symptoms so will defer antibiotic unless culture comes back showing she needs medicine. ECG Initial ECG Impression Date: Sep 25, 2021 Initial ECG Impression Time: : Initial ECG Rate: 83 Initial ECG Rhythm: Normal Sinus Initial ECG Comparisson: Unchanged Comment Sinus rhythm with heart rate of 83 bpm. Short AL interval of [address] elevation. Prolonged QT interval of 440 ms and QTc interval 517 ms. Appears similar to prior tracing from August 27. Diagnostic Imaging Diagonstic Imaging: CT Plain Films/CT/US/NM/MRI: abdomen, pelvis Comments NAME: NELLY GALEANO [facility] REC#: [id number] PT STATUS: REG ER : 1970 PHYSICIAN: KATE MCGARRY MD ADMIT DATE: 09/25/21/ER FS Draft Date of Exam:09/25/21 CT ABDOMEN/PELVIS W PROCEDURE: CT abdomen and pelvis with contrast. TECHNIQUE: Multiple contiguous axial images were obtained through the abdomen and pelvis after administration of intravenous contrast. Auto Exposure Controls were utilized during the CT exam to meet ALARA standards for radiation dose reduction. All CT scans use one or more of the following dose optimizing techniques: automated exposure control, MA and/or KvP adjustment based on patient size and exam type or iterative reconstruction. INDICATION: Epigastric pain, nausea, vomiting COMPARISON: CT of the chest dated 08/27/2019 FINDINGS: The visualized lung bases are clear. Focal fatty infiltration of the liver adjacent to the falciform ligament. The liver is otherwise unremarkable. The spleen is unremarkable. The adrenal glands are unremarkable. The pancreas is unremarkable. The kidneys are unremarkable. No aneurysmal dilatation of the abdominal aorta. The urinary bladder is unremarkable. The uterus and adnexal structures are unremarkable for age. The appendix is unremarkable. Mural thickening of the proximal colon is noted, though this region of colon is not well distended. No bowel obstruction or pneumatosis. Mild mural thickening of the distal stomach. No significant adenopathy, free air, or free fluid within the abdomen or pelvis. Mild S-shaped curvature of the spine with scattered osseous degenerative changes without acute osseous abnormality. IMPRESSION: Mild mural thickening of the proximal colon. This is felt to relate to mild colitis versus poor distention. No evidence of bowel obstruction. Mural thickening of the distal stomach is suggestive of underlying gastritis versus peptic ulcer disease. No perforation. Additional findings, as above. Dictated on workstation # [id number] Dict: 09/25/21 0958 Trans: 09/25/[address] [place] [address] [id number] Interpreted by: HUNTER ABRAHAM MD Electronically signed by: Reviewed: Reviewed by Me Departure Impression Primary Impression: Alcohol intoxication Qualified Codes: F10.920 - Alcohol use, unspecified with intoxication, uncomplicated Additional Impressions: Epigastric abdominal pain Alcoholic gastritis Qualified Codes: K29.20 - Alcoholic gastritis without bleeding Anxiety Disposition: HOME, SELF-CARE Condition: Stable Departure-Patient Inst. Decision time for Depature: 10:25 Referrals: VIBHA LOGAN APRN (PCP) Primary Care Physician [facility] (Family) Primary Care Physician Patient Instructions: Alcohol Intoxication ED, Nausea and Vomiting, Adult ED, Gastritis ED, Anxiety, Adult ED, Alcohol Use Disorder ED Add. Discharge Instructions: Take hydroxyzine to help with anxiety and stress Take pantoprazole to help with stomach irritation and gastritis. Avoid drinking alcohol Work with Nurse Practitioner Elma in [facility] clinic as well as you could check with [facility] about your anxiety and help with stopping drinking All discharge instructions reviewed with patient and/or family. Voiced understanding. Scripts Pantoprazole Sodium (Pantoprazole Sodium) 40 Mg Tablet.dr 40 MG PO DAILY for Gastritis for 30 Days, #30 TAB 0 Refills Prov: ENYART,KATE E MD 09/25/21 Hydroxyzine HCl (Hydroxyzine HCl) 25 Mg Tablet 25 MG PO TID PRN for anxiety for 5 Days, #15 TAB 0 Refills Prov: KATE MCGARRY MD 09/25/21 Metoclopramide HCl (Metoclopramide HCl) 10 Mg Tablet 10 MG PO Q6H PRN for NAUSEA/VOMITING for 3 Days, #12 TAB 0 Refills Prov: KATE MCGARRY MD 09/25/21 KATE MCGARRY MD Sep 25, 2021 09:19
[2021-09-25] MEDS ORDERED: IOHEXOL 350 MG/ML 100 ML (OMNIPAQUE 350) VIAL IV ONE (09:30)
[2021-09-25] MEDS ORDERED: NS 100 ML (IVPB) BAG IV ONE (09:30)
[2021-09-25] MEDS ORDERED: HOLD METFORMIN - RECEIVED CONTRAST 20 ML VIAL IV SCH ×2 (09:30→10:00)
[2021-09-25] MEDS ORDERED: CATHETER FLUSH 10 ML SYR IV PRN (09:30)
[2021-09-25 09:31] LABS: SODIUM 136 MMOL/L (135-145)
[2021-09-25 09:31] LABS: AMPHETAMINE SCREEN, URINE NEGATIVE (NEGATIVE); BARBITURATE SCREEN URINE NEGATIVE (NEGATIVE); BENZODIAZEPINES SCREEN URINE NEGATIVE (NEGATIVE); CANNABINOID SCREEN, URINE NEGATIVE (NEGATIVE); COCAINE SCREEN URINE NEGATIVE (NEGATIVE); METHADONE STAT NEGATIVE (NEGATIVE); METHAMPHETAMINE SCREEN URINE S NEGATIVE (NEGATIVE); OPIATE SCREEN URINE NEGATIVE (NEGATIVE); OXYCODONE STAT NEGATIVE (NEGATIVE); PROPOXYPHENE STAT NEGATIVE (NEGATIVE); TRICYCLIC ANTIDEPRESSANTS SCRE NEGATIVE (NEGATIVE)
[2021-09-25 09:32] LABS: ACETAMINOPHEN < 10 UG/ML (10-30); ALANINE AMINOTRANSFERASE 47 U/L (0-55); ALBUMIN 3.7 GM/DL (3.2-4.5); ALKALINE PHOSPHATASE 120 U/L (40-136); BILIRUBIN,TOTAL 0.8 MG/DL (0.1-1.0); BUN/CREATININE RATIO 17; CALCIUM 8.6 MG/DL (8.5-10.1); CARBON DIOXIDE 29 MMOL/L (21-32); CHLORIDE 96 MMOL/L (98-107); CREATININE SERUM 0.78 MG/DL (0.60-1.30); GFR ESTIMATED 92; GLUCOSE 113 MG/DL (70-105); POTASSIUM 3.6 MMOL/L (3.6-5.0); SALICYLATE < 0.3 MG/DL (5.0-20.0); TOTAL PROTEIN 6.6 GM/DL (6.4-8.2)
[2021-09-25] MEDS ORDERED: IOHEXOL 350 MG/ML 150 ML (OMNIPAQUE 350) VIAL IV ONE ×2 (10:00)
--- NOTE | 2021-09-25 10:08 | Diagnostic Imaging Report ---
PROCEDURE: CT abdomen and pelvis with contrast. TECHNIQUE: Multiple contiguous axial images were obtained through the abdomen and pelvis after administration of intravenous contrast. Auto Exposure Controls were utilized during the CT exam to meet ALARA standards for radiation dose reduction. All CT scans use one or more of the following dose optimizing techniques: automated exposure control, MA and/or KvP adjustment based on patient size and exam type or iterative reconstruction. INDICATION: Epigastric pain, nausea, vomiting COMPARISON: CT of the chest dated 08/27/2019 FINDINGS: The visualized lung bases are clear. Focal fatty infiltration of the liver adjacent to the falciform ligament. The liver is otherwise unremarkable. The spleen is unremarkable. The adrenal glands are unremarkable. The pancreas is unremarkable. The kidneys are unremarkable. No aneurysmal dilatation of the abdominal aorta. The urinary bladder is unremarkable. The uterus and adnexal structures are unremarkable for age. The appendix is unremarkable. Mural thickening of the proximal colon is noted, though this region of colon is not well distended. No bowel obstruction or pneumatosis. Mild mural thickening of the distal stomach. No significant adenopathy, free air, or free fluid within the abdomen or pelvis. Mild S-shaped curvature of the spine with scattered osseous degenerative changes without acute osseous abnormality. IMPRESSION: Mild mural thickening of the proximal colon. This is felt to relate to mild colitis versus poor distention. No evidence of bowel obstruction. Mural thickening of the distal stomach is suggestive of underlying gastritis versus peptic ulcer disease. No perforation. Additional findings, as above. Dictated by: Dictated on workstation # [id number]
[2021-09-25] MEDS ORDERED: MTC10T PO (10:25)
[2021-09-25] MEDS ORDERED: PANT40TA52 PO (10:25)
[2021-09-25] MEDS ORDERED: HYDR-700 PO (10:25)
[2021-09-25 10:59] VITALS: BP 124/68
== END 2021-09-25 11:00 | disposition home or self-care (01) ==
LOC: EDUNIT# 08:55 → ER FS 08:57
DX: K29.20 Alcoholic gastritis without bleeding (principal); F10.229 Alcohol dependence with intoxication, unspecified; F41.9 Anxiety disorder, unspecified; Y90.7 Blood alcohol level of 200-239 mg/100 ml; Z79.899 Other long term (current) drug therapy
CPT/HCPCS: 36415; 74177; 80053; 80306; 81000; 83690; 85025; 87088; 93005; 99284; G0480 ×3; 80320; 80329

== ENCOUNTER 2021-09-28 16:21 | Inpatient (IN) | payer SELFPAY ==
[~2021-09-28] VITALS: Ht 160 cm; Wt 78.9 kg
[~2021-09-28 16:21] MED LIST changes: +HYDR-700 PO; +PANT40TA52 PO
--- NOTE | 2021-09-28 16:24 | ED GI ---
General Stated Complaint: VOMITTING,WEAKNESS History of Present Illness Date Seen by Provider: Sep 28, 2021 Time Seen by Provider: 16:24 Initial Comments 50-year-old female presents with nausea vomiting and generalized weakness. Patient was seen here couple days ago for similar symptoms and was found to be acutely intoxicated. Patient has had multiple visits for similar symptoms and intoxication. Patient reports that she has been nauseated and vomiting for at least 5 days. Patient reports that she last drank about 5 hours ago, then will say that she has not drank in a couple days, patient denies any diarrhea, fever or chills. She does have some mild epigastric discomfort. She complains of a dry mouth. Patient has repeatedly asked for a drink upon arrival back to her ro om Allergies and Home Medications Allergies Coded Allergies: No Known Drug Allergies (Unverified , 05/29/21) Patient Home Medication List Home Medication List Reviewed: Yes Hydroxyzine HCl (Hydroxyzine HCl) 50 Mg Tablet, 50 MG PO DAILY PRN for SLEEP Prescribed by: KATE MCGARRY on 08/27/21 1816 Hydroxyzine HCl (Hydroxyzine HCl) 25 Mg Tablet, 25 MG PO TID PRN for anxiety Prescribed by: KATE MCGARRY on 09/25/21 1025 Metoclopramide HCl (Metoclopramide HCl) 10 Mg Tablet, 10 MG PO Q6H PRN for NAUSEA/VOMITING Prescribed by: KATE MCGARRY on 09/25/21 1025 Pantoprazole Sodium (Pantoprazole Sodium) 40 Mg Tablet.dr, 40 MG PO DAILY Prescribed by: KATE MCGARRY on 09/25/21 1025 Review of Systems Review of Systems Constitutional: No chills, No fever EENTM: See HPI Respiratory: Denies Cough, Denies Shortness of Air Cardiovascular: Denies Chest Pain, Denies Palpitations Gastrointestinal: Abdominal Pain (EPIGASTRIC); Denies Diarrhea; Nausea, Vomiting Genitourinary: No Symptoms Reported Musculoskeletal: no symptoms reported Skin: no symptoms reported Psychiatric/Neurological: No Symptoms Reported Endocrine: No Symptoms Reported Hematologic/Lymphatic: No Symptoms Reported Past Lvchdzg-Dtwgkj-Xaufow Hx Past Medical History Surgery/Hospitalization HX: ANXIETY; DEPRESSION,Hypothyroid, Alcohol Abuse Surgeries: No Respiratory: No Cardiac: No Neurological: No Reproductive Disorders: No Genitourinary: No Gastrointestinal: No Musculoskeletal: No Endocrine: No HEENT: No Psychosocial: Yes Anxiety, PTSD, Depression Physical Exam Vital Signs Vital Signs - First Documented 09/28/21 16:25 Temp 36.4 Pulse 101 Resp 18 B/P (MAP) 115/68 (84) Pulse Ox 99 O2 Delivery Room Air Capillary Refill : Height/Weight/BMI Height: '" Weight: lbs. oz. kg; 26.00 BMI Method: General Appearance: no apparent distress, other (slurring words ) Neck: full range of motion Respiratory: lungs clear, normal breath sounds Cardiovascular: normal peripheral pulses, regular rate, rhythm Gastrointestinal: soft, tenderness (mild epigastric ) Extremities: normal range of motion Neurologic/Psychiatric: no motor/sensory deficits, alert, normal mood/affect, oriented x 3 Skin: normal color, warm/dry Progress/Results/Core Measures Results/Orders Lab Results Laboratory Tests Test 09/28/21 16:30 09/28/21 18:30 Range/Units White Blood Count 7.6 4.3-11.0 10^3/uL Red Blood Count 4.65 3.80-5.11 10^6/uL Hemoglobin 14.9 11.5-16.0 g/dL Hematocrit 42 35-52 % Mean Corpuscular Volume 91 80-99 fL Mean Corpuscular Hemoglobin 32 25-34 pg Mean Corpuscular Hemoglobin Concent 35 32-36 g/dL Red Cell Distribution Width 11.9 10.0-14.5 % Platelet Count 215 130-400 10^3/uL Mean Platelet Volume 10.0 9.0-12.2 fL Immature Granulocyte % (Auto) 0 % Neutrophils (%) (Auto) 73 42-75 % Lymphocytes (%) (Auto) 21 12-44 % Monocytes (%) (Auto) 5 0-12 % Eosinophils (%) (Auto) 0 0-10 % Basophils (%) (Auto) 1 0-10 % Neutrophils # (Auto) 5.5 1.8-7.8 10^3/uL Lymphocytes # (Auto) 1.6 1.0-4.0 10^3/uL Monocytes # (Auto) 0.4 0.0-1.0 10^3/uL Eosinophils # (Auto) 0.0 0.0-0.3 10^3/uL Basophils # (Auto) 0.1 0.0-0.1 10^3/uL Immature Granulocyte # (Auto) 0.0 0.0-0.1 10^3/uL Sodium Level 139 135-145 MMOL/L Potassium Level 3.9 3.6-5.0 MMOL/L Chloride Level 98 98-107 MMOL/L Carbon Dioxide Level 26 21-32 MMOL/L Anion Gap 15 H 5-14 MMOL/L Blood Urea Nitrogen 15 7-18 MG/DL Creatinine 0.88 0.60-1.30 MG/DL Estimat Glomerular Filtration Rate 80 BUN/Creatinine Ratio 17 Glucose Level 102 70-105 MG/DL Calcium Level 8.1 L 8.5-10.1 MG/DL Corrected Calcium 8.3 L 8.5-10.1 MG/DL Total Bilirubin 0.7 0.1-1.0 MG/DL Aspartate Amino Transf (AST/SGOT) 149 H 5-34 U/L Alanine Aminotransferase (ALT/SGPT) 61 H 0-55 U/L Alkaline Phosphatase 151 H 40-136 U/L Total Protein 6.5 6.4-8.2 GM/DL Albumin 3.8 3.2-4.5 GM/DL Lipase 1370 H 8-78 U/L Serum Alcohol 346 *H <10 MG/DL Urine Color YELLOW Urine Clarity CLEAR Urine pH 7.0 5-9 Urine Specific Carbon <=1.005 1.016-1.022 Urine Protein NEGATIVE NEGATIVE Urine Glucose (UA) NEGATIVE NEGATIVE Urine Ketones NEGATIVE NEGATIVE Urine Nitrite NEGATIVE NEGATIVE Urine Bilirubin NEGATIVE NEGATIVE Urine Urobilinogen 0.2 < = 1.0 MG/DL Urine Leukocyte Esterase NEGATIVE NEGATIVE Urine RBC (Auto) TRACE-L H NEGATIVE Urine RBC NONE /HPF Urine WBC 0-2 /HPF Urine Squamous Epithelial Cells 0-2 /HPF Urine Crystals NONE /LPF Urine Bacteria FEW H /HPF Urine Casts NONE /LPF Urine Mucus SMALL H /LPF Urine Culture Indicated NO My Orders Orders - MARQUEZ,KATHY L DO Alcohol (09/28/21 16:30) Cbc With Automated Diff (09/28/21 16:30) Comprehensive Metabolic Panel (09/28/21 16:30) Lipase (09/28/21 16:30) Ua Culture If Indicated (09/28/21 16:30) Ondansetron Injection (Zofran Injectio (09/28/21 16:30) Ns Iv 1000 Ml (Sodium Chloride 0.9%) (09/28/21 16:30) Famotidine Injection (Pepcid Injection) (09/28/21 16:30) Abdomen Flat & Upright/Decub (09/28/21 16:30) Ct Abdomen/Pelvis W (09/28/21 17:20) Iohexol Injection (Omnipaque 350 Mg/Ml 1 (09/28/21 17:30) Received Contrast (Hold Metformin- Contr (09/28/21 17:30) Ns (Ivpb) (Sodium Chloride 0.9% Ivpb Bag (09/28/21 17:30) Ed Admission (Communication) (09/28/21 18:23) Metoclopramide Injection (Reglan Injecti (09/28/21 18:28) Lactated Ringers (Lr 1000 Ml Iv Solution (09/28/21 18:28) Medications Given in ED Current Medications Medications Dose Ordered Sig/Manda Route Start Time Stop Time Status Last Admin Dose Admin Iohexol 150 ml ONCE ONCE IV 09/28/21 17:30 09/28/21 17:31 DC 09/28/21 17:32 80 ML Ondansetron HCl 4 mg ONCE ONCE IVP 09/28/21 16:30 09/28/21 16:31 DC 09/28/21 16:38 4 MG Sodium Chloride 100 ml ONCE ONCE IV 09/28/21 17:30 09/28/21 17:31 DC 09/28/21 17:32 80 ML Vital Signs/I&O 09/28/21 09/28/21 09/28/21 16:25 18:31 19:40 Temp 36.4 36.4 36.9 Pulse 101 100 91 Resp 18 18 18 B/P (MAP) 115/68 (84) 117/65 120/85 Pulse Ox 99 99 95 O2 Delivery Room Air Room Air Room Air Progress Progress Note : Progress Note Patient's labs and CT are consistent with acute intoxication along with acute alcoholic pancreatitis. Called and discussed with Dr. Mcelroy who graciously accepted patient. She will be transferred to [facility] for admissi on to ICU for further management and observation. I did call and discussed with Dr. Morocho who Dr. Mcelroy asked me to consult along with the eICU team. Patient was transferred in stable condition via ems Diagnostic Imaging Diagonstic Imaging: CT Plain Films/CT/US/NM/MRI: abdomen Comments CT ABDOMEN/PELVIS W EXAMINATION: CT abdomen and pelvis with intravenous contrast. TECHNIQUE: Multiple contiguous axial images were obtained through the abdomen and pelvis after the uneventful administration of intravenous contrast. All CT scans use one or more of the following dose optimizing techniques: automated exposure control, MA and/or KvP adjustment based on patient size and exam type or iterative reconstruction. HISTORY: Pancreatitis COMPARISON: 09/25/2021 FINDINGS: Lung bases: There is an unchanged 0.6 cm right lower lobe groundglass nodule. Solid organs: The liver is normal without focal lesion. The gallbladder is normal. There is no biliary ductal dilation. The pancreas is normal in volume and enhancement without evidence of necrosis or ductal dilatation. There is significant fluid and stranding surrounding the pancreas and retroperitoneum. Spleen is normal. Adrenal glands are normal. The kidneys are normal without hydronephrosis. Bowel: Reactive wall thickening of the duodenum. No bowel obstruction. There is wall thickening of the transverse colon. No findings of acute appendicitis. Peritoneum: There is a mild amount of ascites. No loculated fluid collection or free air. No suspicious lymphadenopathy. Vasculature: Normal without aneurysm. Musculoskeletal: Degenerative changes of the spine without suspicious osseous lesion or compression fracture. Pelvis: The uterus and adnexa are normal. The urinary bladder is normal. IMPRESSION: 1. Significant fluid and inflammatory stranding within the retroperitoneum surrounding the pancreas. Findings could be seen with acute pancreatitis in the appropriate clinical setting. No evidence of necrosis or peripancreatic fluid collection. 2. Likely reactive wall thickening of the duodenum. 3. Wall thickening of the transverse colon which may be reactive but could be seen with an infectious or an inflammatory colitis. Departure Impression Primary Impression: Acute alcoholic pancreatitis Qualified Codes: K85.20 - Alcohol induced acute pancreatitis without necrosis or infection Additional Impression: Alcohol intoxication Qualified Codes: F10.920 - Alcohol use, unspecified with intoxication, uncomplicated Disposition: 30 STILL A PATIENT Condition: Stable Admissions Decision to Admit Reason: Admit from ER (General) Decision to Admit/Date: Sep 28, 2021 Time/Decision to Admit Time: 18:20 Departure-Patient Inst. Referrals: VIBHA LOGAN APRN (PCP) Primary Care Physician [facility] (Family) Primary Care Physician KATHY MARQUEZ DO Sep 28, 2021 16:24
[2021-09-28] MEDS ORDERED: NS IV 1000 ML 1,000 ML IV STA (16:30)
[2021-09-28] MEDS ORDERED: ONDANSETRON 4 MG/2 ML (SDV) Z0FRAN IVP ONE (16:30)
[2021-09-28] MEDS ORDERED: FAMOTIDINE 20MG/2ML IV (PEPCID) IV STA (16:30)
[2021-09-28 16:36] LABS: BASOPHILS # (AUTO) 0.1 10^3/uL (0.0-0.1); BASOPHILS % (AUTO) 1 % (0-10); EOSINOPHILS % (AUTO) 0 % (0-10); HEMATOCRIT 42 % (35-52); HEMOGLOBIN 14.9 g/dL (11.5-16.0); LYMPHOCYTES # (AUTO) 1.6 10^3/uL (1.0-4.0); LYMPHOCYTES % (AUTO) 21 % (12-44); MEAN CORPUSCULAR HEMOGLOBIN 32 pg (25-34); MEAN CORPUSCULAR HGB CONC 35 g/dL (32-36); MEAN CORPUSCULAR VOLUME 91 fL (80-99); MONOCYTES # (AUTO) 0.4 10^3/uL (0.0-1.0); MONOCYTES % (AUTO) 5 % (0-12); NEUTROPHILS # (AUTO) 5.5 10^3/uL (1.8-7.8); NEUTROPHILS % (AUTO) 73 % (42-75); PLATELET COUNT 215 10^3/uL (130-400); WHITE BLOOD COUNT 7.6 10^3/uL (4.3-11.0)
[2021-09-28 17:05] LABS: POTASSIUM 3.9 MMOL/L (3.6-5.0)
[2021-09-28 17:06] LABS: ALBUMIN 3.8 GM/DL (3.2-4.5); BILIRUBIN,TOTAL 0.7 MG/DL (0.1-1.0); CALCIUM 8.1 MG/DL (8.5-10.1); CREATININE SERUM 0.88 MG/DL (0.60-1.30); TOTAL PROTEIN 6.5 GM/DL (6.4-8.2)
--- NOTE | 2021-09-28 17:07 | Diagnostic Imaging Report ---
EXAMINATION: Abdomen 2 view HISTORY: Nausea and vomiting. COMPARISON: 09/25/2021. FINDINGS: There is a moderate amount of gas and stool throughout the colon. Nonobstructive bowel gas pattern. No radiopaque foreign body. The lung bases are clear. The osseous structures are intact. IMPRESSION: Moderate stool burden without other acute abnormality in the abdomen. Dictated by: Dictated on workstation # [id number]
[2021-09-28] MEDS ORDERED: IOHEXOL 350 MG/ML 150 ML (OMNIPAQUE 350) VIAL IV ONE (17:30)
[2021-09-28] MEDS ORDERED: HOLD METFORMIN - RECEIVED CONTRAST 20 ML VIAL IV SCH (17:30)
[2021-09-28] MEDS ORDERED: NS 100 ML (IVPB) BAG IV ONE (17:30)
--- NOTE | 2021-09-28 17:53 | Diagnostic Imaging Report ---
EXAMINATION: CT abdomen and pelvis with intravenous contrast. TECHNIQUE: Multiple contiguous axial images were obtained through the abdomen and pelvis after the uneventful administration of intravenous contrast. All CT scans use one or more of the following dose optimizing techniques: automated exposure control, MA and/or KvP adjustment based on patient size and exam type or iterative reconstruction. HISTORY: Pancreatitis COMPARISON: 09/25/2021 FINDINGS: Lung bases: There is an unchanged 0.6 cm right lower lobe groundglass nodule. Solid organs: The liver is normal without focal lesion. The gallbladder is normal. There is no biliary ductal dilation. The pancreas is normal in volume and enhancement without evidence of necrosis or ductal dilatation. There is significant fluid and stranding surrounding the pancreas and retroperitoneum. Spleen is normal. Adrenal glands are normal. The kidneys are normal without hydronephrosis. Bowel: Reactive wall thickening of the duodenum. No bowel obstruction. There is wall thickening of the transverse colon. No findings of acute appendicitis. Peritoneum: There is a mild amount of ascites. No loculated fluid collection or free air. No suspicious lymphadenopathy. Vasculature: Normal without aneurysm. Musculoskeletal: Degenerative changes of the spine without suspicious osseous lesion or compression fracture. Pelvis: The uterus and adnexa are normal. The urinary bladder is normal. IMPRESSION: 1. Significant fluid and inflammatory stranding within the retroperitoneum surrounding the pancreas. Findings could be seen with acute pancreatitis in the appropriate clinical setting. No evidence of necrosis or peripancreatic fluid collection. 2. Likely reactive wall thickening of the duodenum. 3. Wall thickening of the transverse colon which may be reactive but could be seen with an infectious or an inflammatory colitis. Dictated by: Dictated on workstation # [id number]
[2021-09-28] MEDS ORDERED: LACTATED RINGERS 1,000 ML IV STA (18:28)
[2021-09-28] MEDS ORDERED: METOCLOPRAMIDE INJ 10 MG/2 ML (REGLAN) IVP STA (18:28)
[2021-09-28 18:46] LABS: BILIRUBIN,URINE NEGATIVE (NEGATIVE); CLARITY,URINE CLEAR; COLOR,URINE YELLOW; GLUCOSE, URINE (UA) NEGATIVE (NEGATIVE); KETONES,URINE NEGATIVE (NEGATIVE); LEUKOCYTE ESTERASE ,URINE NEGATIVE (NEGATIVE); NITRITE,URINE NEGATIVE (NEGATIVE); PROTEIN,URINE NEGATIVE (NEGATIVE)
[2021-09-28 19:02] LABS: BACTERIA,URINE FEW /HPF; SQUAMOUS EPITHELIAL CELL,UR 0-2 /HPF; WBC,URINE 0-2 /HPF
[2021-09-28] MEDS ORDERED: THIAMINE 100 MG/ML 2 ML (VITAMIN B-1) VIAL IV ONE (20:00)
[2021-09-28] MEDS ORDERED: polyethylene glycoL POWDER 17 GM (MIRALAX) PACK PO PRN (20:00)
[2021-09-28] MEDS ORDERED: LORazepam INJ 2 MG/ML (ATIVAN) VIAL IM/IV PRN (20:00)
[2021-09-28] MEDS ORDERED: 1/2 NS IV SOLUTION 1,000 ML IV PRN (20:00)
[2021-09-28] MEDS ORDERED: PROMETHAZINE INJ 25 MG/ML (PHENERGAN) AMP IM PRN (20:00)
[2021-09-28] MEDS ORDERED: ANTACID SUSP 30 ML UDC (MYLANTA) PO PRN (20:00)
[2021-09-28] MEDS ORDERED: diphenhydrAMINE 50 MG/ML INJ (BENADRYL) IVP PRN (20:00)
[2021-09-28] MEDS ORDERED: NALOXONE 0.4 MG/ML 1 ML (NARCAN) VIAL IV PRN (20:00)
[2021-09-28] MEDS ORDERED: BISACODYL 10 MG SUPP (DULCOLAX) PR PRN (20:00)
[2021-09-28] MEDS ORDERED: HYDROmorphone 2 MG/ML VIAL (DILAUDID) IVP PRN (20:00)
[2021-09-28] MEDS ORDERED: D5 1/2 NS 1000 ML IV SOLUTION 1,000 ML IV PRN (20:00)
[2021-09-28] MEDS ORDERED: NS IV 1000 ML 1,000 ML ONE (20:06)
[2021-09-28] MEDS ORDERED: ONDANSETRON 4 MG/2 ML (SDV) Z0FRAN ONE (20:07)
[2021-09-28] MEDS: NS IV 1000 ML 1,000 ML IV SCH (20:11)
[2021-09-28] MEDS: ONDANSETRON 4 MG/2 ML (SDV) Z0FRAN IV PRN (20:11)
--- NOTE | 2021-09-28 20:40 | Tele-ICU Consult ---
History of Present Illness History of Present Illness Date Seen by Provider: Sep 28, 2021 Time Seen by Provider: 20:35 History of Present Illness 50 yo F with Hx of EtOH comes to ED vomiting with EtOH level of 346, CT abd shows fluid around pancreas, lipase elevated at 1370 AST 149 ALT 61 T Bili 0.7 Started on anti emetics, Pepcid, thiamine, PRN IV Ativan drinks vodka every day, last drink this am Allergies and Home Medications Allergies Coded Allergies: No Known Drug Allergies (Unverified , 05/29/21) Home Medications Hydroxyzine HCl 50 Mg Tablet, 50 MG PO DAILY PRN for SLEEP Prescribed by: KATE MCGARRY on 08/27/21 1816 Hydroxyzine HCl 25 Mg Tablet, 25 MG PO TID PRN for anxiety Prescribed by: KATE MCGARRY on 09/25/21 1025 Metoclopramide HCl 10 Mg Tablet, 10 MG PO Q6H PRN for NAUSEA/VOMITING Prescribed by: KATE MCGARRY on 09/25/21 1025 Pantoprazole Sodium 40 Mg Tablet.dr, 40 MG PO DAILY Prescribed by: KATE MCGARRY on 09/25/21 1025 Past Medical/Social/Family Hx Patient Social History Tobacco Use?: No Smoking Status: Never a Smoker Use of E-Cig and/or Vaping dev: No Substance use?: No Alcohol Use?: Yes Alcohol type: Hard Liquor Additional alcohol type: VODKA-16 OZ DAILY Alcohol Frequency: Daily Reports drinking vodka 5 hours prior to arrival Pt stated abuse/neglect: No Immunizations Up To Date Influenza Vaccine Up-to-Date: No; Not Current First/Initial COVID19 Vaccinat: Not currently vaccinated Second COVID19 Vaccination Grzegorz: Not currently vaccinated Current Status status: No Advance Directives: No Communicates: Verbally Primary Language: Ghanaian Preferred Spoken Language: Ghanaian Review of Systems Constitutional: see HPI EENTM: see HPI Respiratory: see HPI Cardiovascular: see HPI Gastrointestinal: abdominal pain Genitourinary: see HPI Musculoskeletal: see HPI Skin: see HPI Psychiatric/Neurological: See HPI Focused Exam Height, Weight, BMI Height: '" Weight: lbs. oz. kg; 28.51 BMI Method: Exam Exam Patient acknowledged, consented, and participated in this virtual visit which was conducted using real time audio/video Vital Signs Date Time Temp Pulse Resp B/P (MAP) Pulse Ox O2 Delivery O2 Flow Rate FiO2 09/28/21 19:40 36.9 91 18 120/85 95 Room Air 09/28/21 18:31 36.4 100 18 117/65 99 Room Air 09/28/21 16:25 36.4 101 18 115/68 (84) 99 Room Air Height & Weight Height: '" Weight: lbs. oz. kg; 28.51 BMI Method: General Appearance: No Apparent Distress, Anxious Respiratory: Lungs Clear Cardiovascular: Regular Rate, Rhythm, No Edema Capillary Refill: Less Than 3 Seconds Gastrointestinal: normal bowel sounds, soft, tenderness (mild epigastric also back pain) Results Lab Laboratory Tests 09/28/21 16:30 Assessment/Plan Assessment/Plan acute EtOH intoxication, probable pancreatitis, will continue above Rx, watch for development of dehydration from vomiting Critical Care: Critically Ill Patient Time spent with patient (mins): 30 KATY RODRIGUEZ MD Sep 28, 2021 20:40
[2021-09-28 20:51] VITALS: BP 115/68
[2021-09-28] MEDS ORDERED: RT-ALBUTEROL SULF 2.5 MG/3 ML PRE-MIX VIAL INH PRN (21:00)
[2021-09-28] MEDS: MAGNESIUM OXIDE (MAG-OX)400 MG TAB PO SCH (21:09)
[2021-09-28] MEDS: DOCUSATE SODIUM 100 MG (COLACE) CAP PO SCH (21:09)
[2021-09-28] MEDS ORDERED: LORazepam INJ 2 MG/ML (ATIVAN) VIAL ONE (21:46)
[2021-09-28] MEDS: LORazepam INJ 2 MG/ML (ATIVAN) VIAL IV PRN (21:50)
[2021-09-28 22:14] LABS: AMPHETAMINE SCREEN, URINE NEGATIVE (NEGATIVE); BARBITURATE SCREEN URINE NEGATIVE (NEGATIVE); BENZODIAZEPINES SCREEN URINE NEGATIVE (NEGATIVE); CANNABINOID SCREEN, URINE POSITIVE (NEGATIVE); COCAINE SCREEN URINE NEGATIVE (NEGATIVE); METHADONE STAT NEGATIVE (NEGATIVE); METHAMPHETAMINE SCREEN URINE S POSITIVE (NEGATIVE); OPIATE SCREEN URINE NEGATIVE (NEGATIVE); OXYCODONE STAT POSITIVE (NEGATIVE); PROPOXYPHENE STAT NEGATIVE (NEGATIVE); TRICYCLIC ANTIDEPRESSANTS SCRE NEGATIVE (NEGATIVE)
[2021-09-28] MEDS: ENOXAPARIN 40 MG/0.4 ML (LOVENOX) SYR SC SCH (23:42)
[2021-09-29] MEDS: ONDANSETRON 4 MG/2 ML (SDV) Z0FRAN IV PRN (00:58)
[2021-09-29] MEDS: LORazepam INJ 2 MG/ML (ATIVAN) VIAL IV PRN ×13 (01:04→23:11)
[2021-09-29] MEDS: NS IV 1000 ML 1,000 ML IV SCH ×3 (04:06→20:00)
[2021-09-29 05:12] LABS: BASOPHILS # (AUTO) 0.1 10^3/uL (0.0-0.1); BASOPHILS % (AUTO) 1 % (0-10); EOSINOPHILS % (AUTO) 0 % (0-10); HEMATOCRIT 37 % (35-52); HEMOGLOBIN 12.6 g/dL (11.5-16.0); LYMPHOCYTES % (AUTO) 12 % (12-44); MEAN CORPUSCULAR HEMOGLOBIN 32 pg (25-34); MEAN CORPUSCULAR HGB CONC 34 g/dL (32-36); MEAN CORPUSCULAR VOLUME 94 fL (80-99); MEAN PLATELET VOLUME 10.9 fL (9.0-12.2); MONOCYTES # (AUTO) 0.6 10^3/uL (0.0-1.0); MONOCYTES % (AUTO) 7 % (0-12); NEUTROPHILS # (AUTO) 6.8 10^3/uL (1.8-7.8); NEUTROPHILS % (AUTO) 80 % (42-75); PLATELET COUNT 184 10^3/uL (130-400); WHITE BLOOD COUNT 8.5 10^3/uL (4.3-11.0)
[2021-09-29] MEDS: POTASSIUM CL 10MEQ/50ML IVPB 50 ML IV SCH ×3 (05:29→08:28)
[2021-09-29] MEDS: KCL 20 MEQ TAB (K-DUR) PO SCH (05:29)
[2021-09-29] MEDS: MAGNESIUM 1 GM/100 ML IVPB 100 ML IV SCH ×3 (05:29→08:28)
[2021-09-29 05:33] LABS: POTASSIUM 3.4 MMOL/L (3.6-5.0)
[2021-09-29 05:34] LABS: CALCIUM 7.5 MG/DL (8.5-10.1)
[2021-09-29 05:35] LABS: TOTAL PROTEIN 5.5 GM/DL (6.4-8.2)
[2021-09-29 05:37] LABS: BILIRUBIN,TOTAL 1.2 MG/DL (0.1-1.0)
[2021-09-29 05:39] LABS: CREATININE SERUM 0.75 MG/DL (0.60-1.30)
[2021-09-29 05:41] LABS: MAGNESIUM 1.5 MG/DL (1.6-2.4)
[2021-09-29] MEDS ORDERED: DEXTROSE 50% 50 ML (IMS) SYR ONE (06:33)
--- NOTE | 2021-09-29 07:25 | Consultation - Surgery ---
MELLO JIMENEZ MED STUDENT 09/29/21 0725: History of Present Illness History of Present Illness Patient Consulted On(nilesh/time) 09/29/21 07:13 Date Seen by Provider: Sep 29, 2021 Reason for Visit: nausea, vomiting, and epigastric abdominal pain History of Present Illness General Surgery consulted for likely alcoholic pancreatitis. Chuyita is a 50 year old female who presented to the ED in . [place] yesterday with complaints of nausea, vomiting, and epigastric abdominal pain x 5 days. She's had multiple visits to the ED for similar complaints and acute alcohol intoxication per ED providers note. Her initial lipase was 1370, amylase of 463, AST 149, ALT 61, ETOH 346, and tbili of 0.7. CT abd/pelvis showed significant fluid and inflammatory stranding within the retroperitoneum around the pancreas. No evidence of necrosis or peripancreatic fluid collection seen on CT. Also evident on CT was likely reactive wall thickening of the duodenum and wall thickening of the transverse colon per CT report. Currently patient is having visual hallucinations and reports seeing an male outside the window who's saying "I'm gonna come in and get you." She is alert and oriented x 4, but speech is somewhat garbled and intermittently incoherent. She denies abdominal pain, fever, chills, chest pain, SOB, and diarrhea. Does reports nausea and some vomiting overnight. She is currently taking clears. Nursing reports visual hallucinations starting around 0400 this am and has received some ativan per [facility] protocol. History somewhat limited due to mental status. Patient is moderately tremulous and reports not feeling safe. Reports last alcoholic drink was yesterday around noon. Urine drug screen positive for methamphetamine, oxycodone, and cannabinoids. Allergies and Home Medications Allergies Coded Allergies: No Known Drug Allergies (Unverified , 05/29/21) Patient Home Medication List Hydroxyzine HCl (Hydroxyzine HCl) 50 Mg Tablet, 50 MG PO DAILY PRN for SLEEP Prescribed by: KATE MCGARRY on 08/27/21 1816 Hydroxyzine HCl (Hydroxyzine HCl) 25 Mg Tablet, 25 MG PO TID PRN for anxiety Prescribed by: KATE MCGARRY on 09/25/21 1025 Metoclopramide HCl (Metoclopramide HCl) 10 Mg Tablet, 10 MG PO Q6H PRN for NAUSEA/VOMITING Prescribed by: KATE RAMOSRT on 09/25/21 1025 Pantoprazole Sodium (Pantoprazole Sodium) 40 Mg Tablet.dr, 40 MG PO DAILY Prescribed by: KATE RAMOSRT on 09/25/21 1025 Past Eztegva-Awdnah-Lgzlpi Hx Patient Social History Smoking Status: Never a Smoker 2nd Hand Smoke Exposure: No Recent Hopitalizations: No Alcohol Use?: Yes Have you traveled recently?: No Surgeries History of Surgeries: No Respiratory History of Respiratory Disorde: No Cardiovascular History of Cardiac Disorders: No Neurological History of Neurological Disord: No Reproductive System Hx Reproductive Disorders: No Genitourinary History of Genitourinary Disor: No Gastrointestinal History of Gastrointestinal Di: No Musculoskeletal History of Musculoskeletal Dis: No Endocrine History of Endocrine Disorders: No HEENT History of HEENT Disorders: No Loss of Vision: Denies Hearing Impairment: Denies Cancer History of Cancer: No Psychosocial History of Psychiatric Problem: Yes Behavioral Health Disorders: Anxiety, PTSD, Depression Integumentary History of Skin or Integumenta: No Blood Transfusions History of Blood Disorders: No Review of Systems-General Constitutional: No chills, No diaphoresis, No fever; weakness EENTM: No blurred vision, No double vision, No vision loss Respiratory: No cough, No dyspnea on exertion, No short of breath Cardiovascular: No chest pain, No edema, No palpitations Gastrointestinal: No abdominal pain (denies abdominal pain currently), No constipation, No diarrhea, No hematemesis; nausea, vomiting Genitourinary: No decreased output, No discharge, No dysuria, No frequency; other (nursing has placed goff) Musculoskeletal: No back pain, No joint pain, No joint swelling Skin: No change in color, No change in hair/nails, No dryness, No lesions, No pruritus, No rash Psychiatric/Neurological: Anxiety; Denies Headache, Denies Numbness, Denies Paresthesia; Tremors Physical Exam-General Problems Physical Exam Vital Signs Vital Signs - First Documented 09/28/21 09/28/21 16:25 20:51 Temp 36.4 Pulse 101 Resp 18 B/P (MAP) 115/68 (84) Pulse Ox 99 O2 Delivery Room Air FiO2 21 Capillary Refill : Less Than 3 Seconds General Appearance: no apparent distress Eyes: Bilateral Eye Normal Inspection, Bilateral Eye PERRL HEENT: PERRL/EOMI, pharynx normal Neck: non-tender, full range of motion, supple Respiratory: chest non-tender, lungs clear, normal breath sounds, no respiratory distress, no accessory muscle use Cardiovascular: normal peripheral pulses, regular rate, rhythm, no edema, no murmur Peripheral Pulses: 2+ Dorsalis Pedis (R), 2+ Left Dors-Pedis (L), 2+ Radial Pulses (R), 2+ Radial Pulses (L) Gastrointestinal: normal bowel sounds, non tender, soft; No distended, No guarding, No rebound, No tenderness Rectal: deferred Back: normal inspection, no vertebral tenderness Extremities: normal range of motion, non-tender, no pedal edema, no calf tenderness, normal capillary refill Neurologic/Psychiatric: no motor/sensory deficits, alert, oriented x 3, other (tremulosness currently, intermittently incoherent. having visual hallucinations) Skin: normal color, warm/dry, ecchymosis (small ecchymosis over abdomen), tattoos/piercings Lymphatic: no adenopathy Data Review Labs Laboratory Tests 09/28/21 16:30: White Blood Count 7.6, Red Blood Count 4.65, Hemoglobin 14.9, Hematocrit 42, Mean Corpuscular Volume 91, Mean Corpuscular Hemoglobin 32, Mean Corpuscular Hemoglobin Concent 35, Red Cell Distribution Width 11.9, Platelet Count 215, Mean Platelet Volume 10.0, Immature Granulocyte % (Auto) 0, Neutrophils (%) (Auto) 73, Lymphocytes (%) (Auto) 21, Monocytes (%) (Auto) 5, Eosinophils (%) (Auto) 0, Basophils (%) (Auto) 1, Neutrophils # (Auto) 5.5, Lymphocytes # (Auto) 1.6, Monocytes # (Auto) 0.4, Eosinophils # (Auto) 0.0, Basophils # (Auto) 0.1, Immature Granulocyte # (Auto) 0.0, Sodium Level 139, Potassium Level 3.9, Chloride Level 98, Carbon Dioxide Level 26, Anion Gap 15H, Blood Urea Nitrogen 15, Creatinine 0.88, Estimat Glomerular Filtration Rate 80, BUN/Creatinine Ratio 17, Glucose Level 102, Calcium Level 8.1L, Corrected Calcium 8.3L, Total Bili rivers 0.7, Aspartate Amino Transf (AST/SGOT) 149H, Alanine Aminotransferase (ALT/SGPT) 61H, Alkaline Phosphatase 151H, Total Protein 6.5, Albumin 3.8, Lipase 1370H, Serum Alcohol 346*H 09/28/21 18:30: Urine Color YELLOW, Urine Clarity CLEAR, Urine pH 7.0, Urine Specific Eads <=1.005, Urine Protein NEGATIVE, Urine Glucose (UA) NEGATIVE, Urine Ketones NEGATIVE, Urine Nitrite NEGATIVE, Urine Bilirubin NEGATIVE, Urine Urobilinogen 0.2, Urine Leukocyte Esterase NEGATIVE, Urine RBC (Auto) TRACE-LH, Urine RBC NON E, Urine WBC 0-2, Urine Squamous Epithelial Cells 0-2, Urine Crystals NONE, Urine Bacteria FEWH, Urine Casts NONE, Urine Mucus SMALLH, Urine Culture Indicated NO 09/28/21 21:45: Urine Opiates Screen NEGATIVE, Urine Oxycodone Screen POSITIVEH, Urine Methadone Screen NEGATIVE, Urine Propoxyphene Screen NEGATIVE, Urine Barbiturates Screen NEGATIVE, Ur Tricyclic Antidepressants Screen NEGATIVE, Urine Phencyclidine Screen NEGATIVE, Urine Amphetamines Screen NEGATIVE, Urine Methamphetamines Screen POSITIVEH, Urine Benzodiazepines Screen NEGATIVE, Urine Cocaine Screen NEGATIVE, Urine Cannabinoids Screen POSITIVEH 09/29/21 04:50: White Blood Count 8.5, Red Blood Count 3.92, Hemoglobin 12.6, Hematocrit 37, Mean Corpuscular Volume 94, Mean Corpuscular Hemoglobin 32, Mean Corpuscular Hemoglobin Concent 34, Red Cell Distribution Width 11.9, Platelet Count 184, Mean Platelet Volume 10.9, Immature Granulocyte % (Auto) 0, Neutrophils (%) (Auto) 80H, Lymphocytes (%) (Auto) 12, Monocytes (%) (Auto) 7, Eosinophils (%) (Auto) 0, Basophils (%) (Auto) 1, Neutrophils # (Auto) 6.8, Lymphocytes # (Auto) 1.0, Monocytes # (Auto) 0.6, Eosinophils # (Auto) 0.0, Basophils # (Auto) 0.1, Immature Granulocyte # (Auto) 0.0, Sodium Level 134L, Potassium Level 3.4L, Chloride Level 102, Carbon Dioxide Level 19L, Anion Gap 13, Blood Urea Nitrogen 14, Creatinine 0.75, Estimat Glomerular Filtration Rate 97, BUN/Creatinine Ratio 19, Glucose Level 70, Calcium Level 7.5L, Corrected Calcium 8.3L, Total Bilirubin 1.2H, Aspartate Amino Transf (AST/SGOT) 138H, Alanine Aminotransferase (ALT/SGPT) 58H, Alkaline Phosphatase 127, Total Protein 5.5L, Albumin 3.0L, Lipase 1671H, Phosphorus Level 4.0, Magnesium Level 1.5L, Amylase Level 463H 09/29/21 06:31: Glucometer 73 Assessment/Plan Assessment/Plan Admission Diagonsis Alcoholic Pancreatitis, alcohol intoxication Assessment/Plan Acute alcoholic pancreatitis Alcohol intoxication Alcohol hallucinosis Delirium tremens Nausea, vomiting, epigastric abdominal pain Transaminitis Hyponatremia Hypokalemia Hypomagnesemia DVT ppx Anxiety/Depression Patient receiving clears, dc and make NPO Continue IVF's obtain abdominal ultrasound gallbladder to rule out gallstone pancreatitis Continue antiemetics Continue pain meds Continue CIWA Continue current medical management NHI STOREY DO 09/29/21 1158: History of Present Illness History of Present Illness Time Seen by Provider: 10:52 History of Present Illness Patient is a 50-year-old female who is poor historian. Patient presented to the emergency department with complaints of nausea vomiting and epigastric abdominal pain x5 days. Patient having confusion at this time but unable to really give much of a history. Patient states that she does have some slight epigastric abdominal pain. She does not have any nausea vomiting fever sweats chills shortness of breath or chest pain at this time she states. Patient had a CT scan that demonstrated findings consistent with acute pancreatitis, also with thickening of the duodenum and transverse colon significant ventilatory changes around all of the is likely reactive to the pancreatitis. Patient currently al ert and oriented x1 at the time that I am seeing her. Allergies and Home Medications Allergies Coded Allergies: No Known Drug Allergies (Unverified , 05/29/21) Patient Home Medication List Home Medication List Reviewed: Yes Hydroxyzine HCl (Hydroxyzine HCl) 50 Mg Tablet, 50 MG PO DAILY PRN for SLEEP Prescribed by: KATE MCGARRY on 08/27/21 1816 Hydroxyzine HCl (Hydroxyzine HCl) 25 Mg Tablet, 25 MG PO TID PRN for anxiety Prescribed by: KATE MCGARRY on 09/25/21 1025 Metoclopramide HCl (Metoclopramide HCl) 10 Mg Tablet, 10 MG PO Q6H PRN for NAUSEA/VOMITING Prescribed by: KATE MCGARRY on 09/25/21 1025 Pantoprazole Sodium (Pantoprazole Sodium) 40 Mg Tablet.dr 40 MG PO DAILY Prescribed by: KATE RAMOSRT on 09/25/21 1025 Past Rzzjqqo-Vfuwzl-Jtjhyo Hx Reviewed Nursing Assessment Reviewed/Agree w Nursing PMH: Yes Family Medical History Significant Family History: No Pertinent Family Hx Review of Systems-General Constitutional: No chills, No diaphoresis; weakness EENTM: No blurred vision, No double vision, No vision loss Respiratory: No cough, No dyspnea on exertion, No short of breath Cardiovascular: No edema, No palpitations Gastrointestinal: abdominal pain (epigastric); No constipation, No diarrhea, No hematemesis, No nausea, No vomiting Genitourinary: No decreased output, No discharge Musculoskeletal: No back pain, No joint pain, No joint swelling Skin: No change in color, No change in hair/nails, No dryness, No lesions, No pruritus, No rash Psychiatric/Neurological: Anxiety (high stressed job) Physical Exam-General Problems Physical Exam General Appearance: no apparent distress, thin HEENT: PERRL/EOMI, normal ENT inspection Neck: non-tender, full range of motion, supple Respiratory: chest non-tender, no respiratory distress, no accessory muscle use Cardiovascular: no JVD, tachycardia Gastrointestinal: soft, tenderness (minimal epigastric with deep palpation, br uising left side of abdomen) Rectal: deferred Genital/Rectal: heme negative stool, normal rectal tone Back: normal inspection, no CVA tenderness Extremities: normal range of motion, non-tender Neurologic/Psychiatric: alert; No oriented x 3; other (alert and oriented x 1) Skin: warm/dry, ecchymosis (small ecchymosis over abdomen right side), tattoos/piercings Lymphatic: no adenopathy Assessment/Plan Assessment/Plan Assessment/Plan Acute alcoholic pancreatitis Alcohol intoxication Alcohol hallucinosis Delirium tremens Nausea, vomiting, epigastric abdominal pain Transaminitis Hyponatremia Hypokalemia Hypomagnesemia DVT ppx Anxiety/Depression Patient receiving clears Continue IVF's obtain abdominal ultrasound gallbladder to rule out gallstone pancreatitis Continue antiemetics Continue pain meds Continue CIWA Continue current medical management Supervisory-Addendum Brief Verification & Attestation Participated in pt care: history, MDM, physical Personally performed: exam, history, MDM, supervision of care Care discussed with: Medical Student Procedures: n/a Results interpretation: Verified all documentation Verification and Attestation of Medical Student E/M Service A medical student performed and documented this service in my presence. I reviewed and verified all information documented by the medical student and made modifications to such information, when appropriate. I personally performed the physical exam and medical decision making. Nhi Storey, Sep 29, 2021,11:58 MELLO JIMENEZ MED STUDENT Sep 29, 2021 07:25 NHI STOREY DO Sep 29, 2021 11:58
[2021-09-29] MEDS: PANTOPRAZOLE 40 MG (PROTONIX) VIAL IV SCH (08:23)
[2021-09-29] MEDS: MAGNESIUM OXIDE (MAG-OX)400 MG TAB PO SCH ×2 (08:23→20:01)
[2021-09-29] MEDS: FOLIC ACID 1 MG TAB PO SCH (08:23)
[2021-09-29] MEDS: DOCUSATE SODIUM 100 MG (COLACE) CAP PO SCH ×2 (08:23→20:01)
--- NOTE | 2021-09-29 09:06 | Physical Therapy Progress Note ---
Therapy Progress Note Per nursing staff patient would benefit from holding physical therapy services until tomorrow and until she gets her anti-psych medications. ISIDORO LIZ PT Sep 29, 2021 09:06
--- NOTE | 2021-09-29 09:23 | Tele-ICU Progress Note ---
Subjective Date Seen by a Provider: Sep 29, 2021 Time Seen by a Provider: 08:20 Subjective/Events-last exam This virtual visit was conducted using real time audio/video. Thank you for asking us to see this patient for alcoholic pancreatitis and intoxication. Recent events: Still having visual hallucinations. PE: VSS. O2 sat 98% on RA HEENT: No obvious masses, adenopathy or JVD. Chest: clear to auscultation. CV: RRR S1 S2 No murmur or added sounds. Abd: Non-tender. Bowel sounds Y. : Unremarkable. Jean Y. [employer]/psychiatric: Grossly intact. No obvious focal findings. Extremities: edema. Capillary refill < 3 seconds. Skin: unremarkable. Results: LFTs improving. Decreased Na 134, K 3.4, Mag 1.5. Available chart/ vitals / labs / images reviewed. Video assessment done using teleICU camera, rest of exam as per RN. A/P: Pancreatitis: LFTs improving. Critical Care: critically ill patient. Cont. CIWA, Phenergan, PPI, Dilaudid, Oxy., Devora., Folate. Replacing K and Mag. Discussed with SILKE Shah.. Asked RN to reach out to eICU if any questions or concerns later. Time spent with patient/coordination of care with other health professionals (mins): 15 Sepsis Event Evaluation Height, Weight, BMI Height: '" Weight: lbs. oz. kg; 28.51 BMI Method: Exam Exam Patient acknowledged, consented, and participated in this virtual visit which was conducted using real time audio/video Vital Signs Date Time Temp Pulse Resp B/P (MAP) Pulse Ox O2 Delivery O2 Flow Rate FiO2 09/29/21 09:00 93 23 147/100 98 Room Air 09/29/21 08:00 98 22 131/87 96 Room Air 09/29/21 08:00 96 Room Air 09/29/21 07:37 37.4 09/29/21 07:00 104 09/29/21 07:00 101 18 115/100 98 Room Air 09/29/21 06:00 90 19 134/88 98 Room Air 09/29/21 05:00 100 24 123/99 96 Room Air 09/29/21 04:00 96 Room Air 09/29/21 04:00 100 21 95 Room Air 09/29/21 03:00 105 14 121/59 87 Room Air 09/29/21 02:00 90 14 115/78 97 Room Air 09/29/21 01:00 98 09/29/21 01:00 98 16 119/78 99 Room Air 09/29/21 00:00 90 17 118/89 96 Room Air 09/28/21 23:59 96 Room Air 09/28/21 23:00 87 13 120/80 97 Room Air 09/28/21 22:00 82 16 113/87 95 Room Air 09/28/21 21:30 96 22 136/85 100 Room Air 09/28/21 21:00 87 18 129/108 98 Room Air 09/28/21 20:51 36.4 101 99 21 09/28/21 20:45 90 15 128/90 100 Room Air 09/28/21 20:00 95 Room Air 09/28/21 19:47 87 09/28/21 19:40 36.9 91 18 120/85 95 Room Air 09/28/21 18:31 36.4 100 18 117/65 99 Room Air 09/28/21 16:25 36.4 101 18 115/68 (84) 99 Room Air I & O 09/29/21 07:00 Intake Total 2200 ml Output Total 275 ml Balance 1925 ml Height & Weight Height: '" Weight: lbs. oz. kg; 28.51 BMI Method: General Appearance: No Apparent Distress, Anxious Respiratory: Lungs Clear Cardiovascular: Regular Rate, Rhythm, No Edema Capillary Refill: Less Than 3 Seconds Peripheral Pulses: 2+ Dorsalis Pedis (R), 2+ Left Dors-Pedis (L), 2+ Radial Pulses (R), 2+ Radial Pulses (L) Gastrointestinal: normal bowel sounds, non tender, soft; No distended, No guarding, No rebound, No tenderness Results Lab Laboratory Tests 09/28/21 16:30 09/29/21 04:50 Assessment/Plan Assessment/Plan See free text. Critical Care: Critically Ill Patient ROSALVA AYALA MD Sep 29, 2021 09:23
--- NOTE | 2021-09-29 10:08 | Progress Note ---
CONNIE XIAO MED STUDENT 09/29/21 1008: Subjective Date Seen by a Provider: Sep 29, 2021 Time Seen by a Provider: 08:25 Subjective/Events-last exam Following patient in ICU for Acute Pancreatitis and ETOH withdrawl. Pts primary cc is epigastric pain - states its a 03/23 but improved compared to ER encounter yesterday. Nausea much improved. Pt sipping water occasionally w/o issue. Per nurse report - pt endoring AV this am - pt agreeded she sees a man in the corner of room (was just me and her there). Mental status: pt remains AOx4 but confused and tangential at times, remains re-directable. Tremulous of physical exam, requiring PRN ativan every couple hours. Unforchanelty, pts psychiatric, drug, and withdrawal history remains unclear... whether due to confusion/withdrawal or denial, pt a poor historian. Elements of history I could fact check against her were inaccurate (eg denies ever using methamphetamines but positive on UDS). Denies ETOH use as being a problem and can't quantify ETOH use per week stating 'drink occasionally with friends' - but pt arrived in ER with 346 ETOH lvl and in active withdrawals. Pt denies SI/HI. Denies any prior psychiatric history - including depression, bipolar dz, schizophrenia, personality disorder. Endorses prior ETOH withdrawls, but denies hx of seizures or DT. Review of Systems General: Chills; No Night Sweats, No Fatigue HEENT: No Head Aches, No Visual Changes Pulmonary: No Dyspnea, No Cough Cardiovascular: No: Chest Pain, Edema, Lt Headedness Gastrointestinal: Nausea, Abdominal Pain; No: Vomiting Neurological: Weakness, Confusion; No: Seizures Objective Exam Last Set of Vital Signs Vital Signs Date Time Temp Pulse Resp B/P (MAP) Pulse Ox O2 Delivery O2 Flow Rate FiO2 09/29/21 09:00 93 23 147/100 98 Room Air 09/29/21 07:37 37.4 09/28/21 20:51 21 Capillary Refill : Less Than 3 Seconds I&O Intake and Output 09/29/21 00:00 Intake Total 2050 ml Balance 2050 ml Intake Oral 50 ml IV Total 2000 ml # Voids 4 Daily Weight Change No General: Alert, Oriented X3, Cooperative HEENT: Atraumatic, EOMI Lungs: Clear to Auscultation, Normal Air Movement Heart: Regular Rate, No Murmurs Abdomen: Soft, Other (epigratric pain on palpation ) Extremities: No Clubbing, No Cyanosis Results Lab Laboratory Tests 09/28/21 16:30: White Blood Count 7.6, Red Blood Count 4.65, Hemoglobin 14.9, Hematocrit 42, Mean Corpuscular Volume 91, Mean Corpuscular Hemoglobin 32, Mean Corpuscular Hemoglobin Concent 35, Red Cell Distribution Width 11.9, Platelet Count 215, Mean Platelet Volume 10.0, Immature Granulocyte % (Auto) 0, Neutrophils (%) (Auto) 73, Lymphocytes (%) (Auto) 21, Monocytes (%) (Auto) 5, Eosinophils (%) (Auto) 0, Basophils (%) (Auto) 1, Neutrophils # (Auto) 5.5, Lymphocytes # (Auto) 1.6, Monocytes # (Auto) 0.4, Eosinophils # (Auto) 0.0, Basophils # (Auto) 0.1, Immature Granulocyte # (Auto) 0.0, Sodium Level 139, Potassium Level 3.9, Chlo ride Level 98, Carbon Dioxide Level 26, Anion Gap 15H, Blood Urea Nitrogen 15, Creatinine 0.88, Estimat Glomerular Filtration Rate 80, BUN/Creatinine Ratio 17, Glucose Level 102, Calcium Level 8.1L, Corrected Calcium 8.3L, Total Bilirubin 0.7, Aspartate Amino Transf (AST/SGOT) 149H, Alanine Aminotransferase (ALT/SGPT) 61H, Alkaline Phosphatase 151H, Total Protein 6.5, Albumin 3.8, Lipase 1370H, Serum Alcohol 346*H 09/28/21 18:30: Urine Color YELLOW, Urine Clarity CLEAR, Urine pH 7.0, Urine Specific [place] <=1.005, Urine Protein NEGATIVE, Urine Glucose (UA) NEGATIVE, Urine Ketones NEGATIVE, Urine Nitrite NEGATIVE, Urine Bilirubin NEGATIVE, Urine Urobilinogen 0.2, Urine Leukocyte Esterase NEGATIVE, Urine RBC (Auto) TRACE-LH, Urine RBC NONE, Urine WBC 0-2, Urine Squamous Epithelial Cells 0-2, Urine Crystals NONE, U rine Bacteria FEWH, Urine Casts NONE, Urine Mucus SMALLH, Urine Culture Indicated NO 09/28/21 21:45: Urine Opiates Screen NEGATIVE, Urine Oxycodone Screen POSITIVEH, Urine Methadone Screen NEGATIVE, Urine Propoxyphene Screen NEGATIVE, Urine Barbiturates Screen NEGATIVE, Ur Tricyclic Antidepressants Screen NEGATIVE, Urine Phencyclidine Screen NEGATIVE, Urine Amphetamines Screen NEGATIVE, Urine Methamphetamines Screen POSITIVEH, Urine Benzodiazepines Screen NEGATIVE, Urine Cocaine Screen NEGATIVE, Urine Cannabinoids Screen POSITIVEH 09/29/21 04:50: White Blood Count 8.5, Red Blood Count 3.92, Hemoglobin 12.6, Hematocrit 37, Mean Corpuscular Volume 94, Mean Corpuscular Hemoglobin 32, Mean Corpuscular Hemoglobin Concent 34, Red Cell Distribution Width 11.9, Platelet Count 184, Mean Platelet Volume 10.9, Immature Granulocyte % (Auto) 0, Neutrophils (%) (Auto) 80H, Lymphocytes (%) (Auto) 12, Monocytes (%) (Auto) 7, Eosinophils (%) (Auto) 0, Basophils (%) (Auto) 1, Neutrophils # (Auto) 6.8, Lymphocytes # (Auto) 1.0, Monocytes # (Auto) 0.6, Eosinophils # (Auto) 0.0, Basophils # (Auto) 0.1, Immature Granulocyte # (Auto) 0.0, Sodium Level 134L, Potassium Level 3.4L, Chloride Level 102, Carbon Dioxide Level 19L, Anion Gap 13, Blood Urea Nitrogen 14, Creatinine 0.75, Estimat Glomerular Filtration Rate 97, BUN/Creatinine Ratio 19, Glucose Level 70, Calcium Level 7.5L, Corrected Calcium 8.3L, Total Bili rivers 1.2H, Aspartate Amino Transf (AST/SGOT) 138H, Alanine Aminotransferase (ALT/SGPT) 58H, Alkaline Phosphatase 127, Total Protein 5.5L, Albumin 3.0L, Lipase 1671H, Phosphorus Level 4.0, Magnesium Level 1.5L, Amylase Level 463H 09/29/21 06:31: Glucometer 73 Assessment/Plan Assessment/Plan Assess & Plan/Chief Complaint Interstitial Pancreatitis w/o signs of end organ damage. Presented in ETOH intoxication Etiology: Very likely alcohol induced Vs gallstone or medication. Pres to ED with ETOH blood lvls 346. Had epigastric pain, mid-1000s lipase, and inflammation (w/o necrosis) on CT abd. 2L fluid rescuitation given yesterday. No clear signs of end organ damage. IVF, supportive: zofran, phenergan, oxycodonone and Dilaudid PRN (narcan order on standby). General surgery follow: ordering RUQ U/s to r/o gallstone pancreatitis. Appreciate all further recs. Current diet: NPO. Advance once pain levels decrease. Alcohol Hallucinosis ETOH withdrawal Transaminits Denies prior seizures or DTs but very poor historian. CIWA protocol on - pt requiring Ativan q2 hrs. Will enter DT window tomorrow morning - remains high risk given current symptoms and concurrent acute medical diagnosis. EK/12 at [facility] had prolonged Qtc (517), repeat today incase patient needs PRN anti-psychotics. Hold off on haldol PRN until then. Alcohol Use disorder Marijuana Use disorder Methamphetamine + UDS Possible Opioid Abuse Possible concurrent primary psychiatric disorder. Revisit abstinence once withdrawal symptoms clear. Pt too confused right now. Needs counseling. B1 and B12 supplementation. GI ppx: protonix DVT ppx: 40 lovenox. Lines tubes: goff cath and PIV Disposition: Consider keeping on ICU for another day given DT and seizure risk. EMILY LOMELI DO 09/30/21 0506: Objective Exam General: Alert, Other (Confused) Lungs: Clear to Auscultation Heart: Regular Rate Assessment/Plan Assessment/Plan Assess & Plan/Chief Complaint Pain control Alcohol withdrawal management Supervisory-Addendum Brief Verification & Attestation Participated in pt care: history, MDM, physical Personally performed: exam, history, MDM, supervision of care Care discussed with: Medical Student Procedures: n/a Results interpretation: Verified all documentation Verification and Attestation of Medical Student E/M Service A medical student performed and documented this service in my presence. I reviewed and verified all information documented by the medical student and made modifications to such information, when appropriate. I personally performed the physical exam and medical decision making. Emily Lomeli, Sep 30, 2021,05:05 CONNIE XIAO MED STUDENT Sep 29, 2021 10:08 EMILY LOMELI DO Sep 30, 2021 05:06
--- NOTE | 2021-09-29 11:07 | Occ Therapy Progress Note ---
Therapy Progress Note OT eval received and chart was reviewed. Per PT, Nursing request to hold therapy evals until tomorrow when patient receives anti-psych meds. Karin Cm OT Sep 29, 2021 11:07
[2021-09-29] MEDS ORDERED: MTC10T PO (11:56)
[2021-09-29] MEDS ORDERED: LEVO50TA6 PO (11:56)
[2021-09-29] MEDS ORDERED: PANT40TA52 PO (11:56)
[2021-09-29] MEDS ORDERED: HYDR-700 PO (11:56)
--- NOTE | 2021-09-29 13:27 | History & Physical-Hospitalist ---
MAN HILTON 09/29/21 1327: History of Present Illness HPI/Chief Complaint Chief complaint: Chuyita is a 50 yo F who presented to the [facility] ER yesterday around 16:00 with a chief complaint of abdominal pain the past 5 days. She was vomiting, had generalized weakness, and epigastric tenderness. She had been seen a few days earlier in the ER for similar symptoms. AST elevated at 149, lipase elevated at 1370, serum alcohol elevated at 346, CT showed fluid and inflammatory stranding of pancreas. Patient was admitted for acute alcoholic pancreatitis. HPI: PMH includes anxiety, depression, PTSD, hypothyroidism, and alcohol abuse. Patient reports drinking 16oz of vodka a day. Nurse reports that the patient started having hallucinations around 04:00 this morning. Patient states she is seeing children in her room. She says she is having abdominal pain and chills. Claims she has not vomited in two days which contradicts the ER notes and nursing reports. Patient is disoriented and is unable to answer questions during the interview due to confusion. When asked if the patient has had any previous surgeries the patient looked confused by the question and proceeded to talk about her workout routine and how she lifts weights. Source: patient, RN/MD, EMS notes reviewed Exam Limitations: clinical condition (Patient going through alcohol withdrawal) Date Seen 09/29/21 Time Seen by a Provider: 10:00 Attending Physician Emily Mcelroy Anna K Aprn Referring Physician Date of Admission Sep 28, 2021 at 19:41 Home Medications & Allergies Home Medications Reviewed patient Home Medication Reconciliation performed by pharmacy medication reconciliations health and safety technician and/or nursing. Patients Allergies have been reviewed. Allergies Allergies Coded Allergies No Known Drug Allergies ([id number]/16/21) Past Fypcdye-Ucqroo-Tocnir Hx Patient Social History Tobacco Use?: No Smoking Status: Never a Smoker Use of E-Cig and/or Vaping dev: No Substance use?: No Alcohol Use?: Yes Alcohol type: Hard Liquor Additional alcohol type: VODKA-16 OZ DAILY Alcohol Frequency: Daily Additional Alcohol Comments: Reports drinking vodka 5 hours prior to arrival Pt feels they are or have been: No Immunizations Up To Date First/Initial COVID19 Vaccinat: Not currently vaccinated Second COVID19 Vaccination Grzegorz: Not currently vaccinated Current Status status: No Advance Directives: No Communicates: Verbally Primary Language: South Korean Preferred Spoken Language: South Korean Past Medical History Hypothyroidsim Loss of Vision: Denies Hearing Impairment: Denies Anxiety, PTSD, Depression Blood Disorders: No Family Medical History No Pertinent Family Hx Review of Systems Constitutional: chills EENTM: no symptoms reported Respiratory: no symptoms reported Cardiovascular: no symptoms reported Gastrointestinal: abdominal pain Genitourinary: no symptoms reported Musculoskeletal: no symptoms reported Skin: no symptoms reported Psychiatric/Neurological: Tremors Physical Exam Physical Exam Vital Signs Vital Signs - First Documented 09/28/21 09/28/21 16:25 20:51 Temp 36.4 Pulse 101 Resp 18 B/P (MAP) 115/68 (84) Pulse Ox 99 O2 Delivery Room Air FiO2 21 Capillary Refill : Less Than 3 Seconds Height, Weight, BMI Height: '" Weight: lbs. oz. kg; 28.51 BMI Method: General Appearance: Moderate Distress (Patient appears dissheveled and confused) Eyes: Bilateral Eye Normal Inspection HEENT: PERRL/EOMI Neck: Full Range of Motion, Normal Inspection, Non Tender Respiratory: Chest Non Tender, Lungs Clear, Normal Breath Sounds, No Accessory Muscle Use, No Respiratory Distress Cardiovascular: Regular Rate, Rhythm, No Murmur, Normal Peripheral Pulses (Left 2+ radial) Gastrointestinal: Normal Bowel Sounds, Tenderness (Epigastric area) Back: Normal Inspection Extremity: Normal Capillary Refill, Normal Range of Motion, Non Tender, No Pedal Edema, Other (Tremor of the hands bilaterally when trying to reach for something, tremor not present at rest) Neurologic/Psychiatric: Disoriented (Only oriented to person, patient beleives it is a and that she is at a doctor's office not a hospital), Other Skin: Normal Color, Warm/Dry Results Results/Procedures Labs Laboratory Tests 09/28/21 16:30 09/29/21 04:50 Patient resulted labs reviewed. Assessment/Plan Admission Diagnosis Acute alcoholic pancreatitis Admission Status: Inpatient Order (span 2 midnights) Reason for Inpatient Admission: Acute alcoholic pancreatitis Assessment and Plan Assessment: Acute alcoholic pancreatitis Alcohol abuse with withdrawal with perceptual disturbance Nausea Alcohol intoxication Hypolalemia Depression Anxiety Hypothyroidism Ulcer prophylaxis DVT prophylaxis Plan: Acute alcoholic pancreatitis - CT did not find evidence of necrosis or organ failure which defines it as mild pancreatitis - patient given lactated ringers and normal saline in the ER to prevent dehydration - oxycodone and hydromorphone given for pain - labs will be monitored to ensure there is no organ failure - surgery being consulted Alcohol abuse with withdrawal with perceptual disturbance - patient given Thiamine injection before dextrose was started to prevent Wernicke-Korsakoff syndrome - patient taking ativan which nurse says is not helping with the hallucinations - folic acid was started - consider adding an antipsychotic to prevent hallucinations - check B1 and folate levels Nausea - ondansetron started in ER Hypokalemia - IV K and Mg was started Ulcer prophylaxis - pantoprazole started DVT prophylaxis - enoxaparin started Diagnosis/Problems Diagnosis/Problems (1) Hypothyroidism (2) ALCOHOL ABUSE WITH WITHDRAWAL WITH PERCEPTUAL DISTURBANCE (3) Hypokalemia (4) Acute alcoholic pancreatitis Qualifiers: Acute pancreatitis complication: unspecified Qualified Codes: K85.20 - Alcohol induced acute pancreatitis without necrosis or infection (5) Alcohol intoxication Status: Acute Qualifiers: Complication of substance-induced condition: uncomplicated Qualified Codes: F10.920 - Alcohol use, unspecified with intoxication, uncomplicated (6) Anxiety Status: Acute (7) Nausea Status: Acute (8) Depression Status: Acute MCELROYEMILY DO 09/30/21 0528: History of Present Illness HPI/Chief Complaint CC: Alcohol withdrawal with pancreatitis HPI: 50 yr WF alcoholic who presented with abdominal pain found to have acute alcoholic hepatitis and pancreatitis. She is now hallucinating and requiring a lot of management with Ativan. She remains in the ICU. Source: patient, RN/MD, EMS notes reviewed Exam Limitations: clinical condition (Patient going through alcohol withdrawal) Past Trobyyj-Vwfqhv-Rjwslu Hx Patient Social History Marrital Status: single Employed/Student: unemployed Smoking Status: Unknown if Ever Smoked Review of Systems ROS-Unable to Obtain: Patient confused Constitutional: see HPI Physical Exam Physical Exam General Appearance: Anxious, Chronically ill, Moderate Distress (Patient appears dissheveled and confused) Respiratory: No Accessory Muscle Use, No Respiratory Distress, Decreased Breath Sounds Cardiovascular: Tachycardia Neurologic/Psychiatric: Alert, Disoriented (Only oriented to person, patient cammyeives it is a and that she is at a doctor's office not a hospital) Assessment/Plan Admission Diagnosis Assessment: Acute alcoholic pancreatitis Alcohol withdrawal Plan: Supportive care IV fluid ICU Admission Status: Inpatient Order (span 2 midnights) Reason for Inpatient Admission: Acute alcohol withdrawal Supervisory-Addendum Brief Verification & Attestation Participated in pt care: history, MDM, physical Personally performed: exam, history, MDM, supervision of care Care discussed with: Medical Student Procedures: n/a Results interpretation: Verified all documentation Verification and Attestation of Medical Student E/M Service A medical student performed and documented this service in my presence. I reviewed and verified all information documented by the medical student and made modifications to such information, when appropriate. I personally performed the physical exam and medical decision making. Emily Mcelroy, Sep 30, 2021,05:27 MAN HILTON Sep 29, 2021 13:27 EMILY MCELROY DO Sep 30, 2021 05:28
[2021-09-29] MEDS: ONDANSETRON 4 MG (ZOFRAN) ORAL DISSOLVE TAB PO PRN (14:09)
--- NOTE | 2021-09-29 14:51 | Diagnostic Imaging Report ---
PROCEDURE: US Gallbladder. TECHNIQUE: Multiple real-time grayscale images were obtained over the right upper quadrant in various projections. INDICATION: History of pancreatitis. FINDINGS: Liver parenchyma mildly echodense. Mild fatty infiltration suspected. There is no pathological dilatation of the bile ducts. No echogenic or shadowing gallstone. Pancreas largely obscured by gas. No demonstrated loculated fluid collection. The unobstructed right kidney appeared normal. The visualized aorta nonaneurysmal. IMPRESSION: No visualized stone. Mild elevated echotexture of the liver suggest fatty infiltration, obscuration of the pancreas. No appreciable free fluid or demonstrated acute fluid collection although acoustical windows were very limited and patient cooperate ability was minimal. Dictated by: Dictated on workstation # [id number]
[2021-09-29] MEDS: MELATONIN 3 MG TABLET PO PRN (19:53)
[2021-09-29] MEDS: ENOXAPARIN 40 MG/0.4 ML (LOVENOX) SYR SC SCH (20:01)
[2021-09-29] MEDS ORDERED: ZIPRASIDONE 20 MG INJ (GEODON) VIAL IM PRN (20:15)
[2021-09-29] MEDS ORDERED: WATER (STERILE) FOR INJ 10 ML BTL INJ SCH (20:15)
[2021-09-29] MEDS ORDERED: WATER (STERILE) FOR INJECTION 10 ML ONE (20:27)
[2021-09-29] MEDS ORDERED: ZIPRASIDONE 20 MG INJ (GEODON) VIAL IM ONE (20:27)
[2021-09-30] MEDS: NS IV 1000 ML 1,000 ML IV SCH ×3 (04:00→20:46)
[2021-09-30 04:53] LABS: BASOPHILS % (AUTO) 1 % (0-10); EOSINOPHILS # (AUTO) 0.1 10^3/uL (0.0-0.3); EOSINOPHILS % (AUTO) 3 % (0-10); HEMATOCRIT 33 % (35-52); HEMOGLOBIN 11.1 g/dL (11.5-16.0); LYMPHOCYTES # (AUTO) 0.9 10^3/uL (1.0-4.0); LYMPHOCYTES % (AUTO) 22 % (12-44); MEAN CORPUSCULAR HEMOGLOBIN 32 pg (25-34); MEAN CORPUSCULAR HGB CONC 34 g/dL (32-36); MEAN CORPUSCULAR VOLUME 94 fL (80-99); MEAN PLATELET VOLUME 11.3 fL (9.0-12.2); MONOCYTES # (AUTO) 0.3 10^3/uL (0.0-1.0); MONOCYTES % (AUTO) 7 % (0-12); NEUTROPHILS # (AUTO) 2.7 10^3/uL (1.8-7.8); NEUTROPHILS % (AUTO) 67 % (42-75); PLATELET COUNT 134 10^3/uL (130-400); WHITE BLOOD COUNT 4.1 10^3/uL (4.3-11.0)
[2021-09-30 05:12] LABS: ALBUMIN 2.6 GM/DL (3.2-4.5); POTASSIUM 3.1 MMOL/L (3.6-5.0)
[2021-09-30 05:13] LABS: CALCIUM 7.4 MG/DL (8.5-10.1)
[2021-09-30] MEDS: POTASSIUM CL 10MEQ/50ML IVPB 50 ML IV SCH (05:14)
[2021-09-30] MEDS: KCL 20 MEQ TAB (K-DUR) PO SCH (05:14)
[2021-09-30 05:15] LABS: TOTAL PROTEIN 4.8 GM/DL (6.4-8.2)
[2021-09-30 05:16] LABS: BILIRUBIN,TOTAL 1.3 MG/DL (0.1-1.0)
[2021-09-30 05:18] LABS: CREATININE SERUM 0.71 MG/DL (0.60-1.30); PHOSPHORUS 2.2 MG/DL (2.3-4.7)
[2021-09-30 05:22] LABS: MAGNESIUM 1.9 MG/DL (1.6-2.4)
[2021-09-30] MEDS: MAGNESIUM 1 GM/100 ML IVPB 100 ML IV SCH (05:24)
[2021-09-30] MEDS: LORazepam INJ 2 MG/ML (ATIVAN) VIAL IV PRN ×3 (05:44→20:46)
--- NOTE | 2021-09-30 05:53 | Progress Note - Hospitalist ---
Subjective HPI/CC On Admission Date Seen by Provider: Sep 30, 2021 Time Seen by Provider: 10:30 CC: Alcohol withdrawal with pancreatitis HPI: 50 yr WF alcoholic who presented with abdominal pain found to have acute alcoholic hepatitis and pancreatitis. She is now hallucinating and requiring a lot of management with Ativan. She remains in the ICU. Subjective/Events-last exam Pt is doing a lot better Still confused Discontinue catheter Ativan given for alcohol withdrawal Lipase is down to 551 No pain is reported Review of Systems General: Fatigue, Malaise Objective Exam Vital Signs Vital Signs Date Time Temp Pulse Resp B/P (MAP) Pulse Ox O2 Delivery O2 Flow Rate FiO2 10/01/21 04:00 37.3 95 18 127/67 (87) 98 Room Air 09/28/21 20:51 21 Capillary Refill : Less Than 3 Seconds General Appearance: No Apparent Distress, WD/WN, Chronically ill Respiratory: Lungs Clear, Normal Breath Sounds Cardiovascular: Regular Rate, Rhythm Neurologic/Psychiatric: Alert, Oriented x3, No Motor/Sensory Deficits, Normal Mood/Affect Results/Procedures Lab Patient resulted labs reviewed. Assessment/Plan Assessment and Plan Assess & Plan/Chief Complaint Assessment: Acute alcoholic pancreatitis Alcohol abuse with withdrawal with perceptual disturbance Nausea Alcohol intoxication Hypolalemia Depression Anxiety Hypothyroidism Ulcer prophylaxis DVT prophylaxis Plan: Move to fourth floor Supportive care Critical Care Critically Ill Patient ARMANIADI GOINS Sep 30, 2021 05:53
[2021-09-30] MEDS ORDERED: KCL 20 MEQ TAB (K-DUR) PO ONE ×2 (06:00→08:00)
--- NOTE | 2021-09-30 06:49 | Progress Note - Surgery ---
MELLO JIMENEZ MED STUDENT 09/30/21 0649: Subjective Date Seen by a Provider: Sep 30, 2021 Subjective/Events-last exam Patient reports some mild epigastric pain that is non-radiatory. Denies nausea, vomiting, chest pain, fevers, and SOB. Tolerating clears well. Reports feeling mildly dehydrated and anxious. Nursing reports she received 5mg ativan overnight per CIWA and geodon around 2030 overnight for agitation. Remains confused, restless, tremulous on exam. Review of Systems General: No Chills, No Night Sweats HEENT: No Head Aches, No Visual Changes Pulmonary: No Dyspnea, No Cough Cardiovascular: No: Chest Pain, Palpitations Gastrointestinal: Abdominal Pain (mild epigastric pain reported); No: Nausea, Vomiting, Diarrhea, Constipation Genitourinary: No Dysuria, No Frequency; Other (goff to dependent drainage) Musculoskeletal: No: neck pain, back pain Neurological: Confusion, Other (anxious and tremulous ); No: Weakness, Numbness Objective Exam Vital Signs Date Time Temp Pulse Resp B/P (MAP) Pulse Ox O2 Delivery O2 Flow Rate FiO2 09/30/21 06:00 80 17 119/79 93 Room Air 09/30/21 05:00 75 15 127/86 92 Room Air 09/30/21 04:00 36.8 Room Air 09/30/21 04:00 95 Room Air 09/30/21 04:00 81 16 107/93 95 Room Air 09/30/21 03:00 82 15 113/83 95 Room Air 09/30/21 02:00 83 15 119/90 96 Room Air 09/30/21 01:00 82 17 116/72 95 Room Air 09/30/21 01:00 82 09/30/21 00:01 37.0 95 Room Air 09/30/21 00:00 81 12 121/87 94 Room Air 09/29/21 23:59 95 Room Air 09/29/21 23:00 75 14 127/80 93 Room Air 09/29/21 22:00 80 18 114/96 92 Room Air 09/29/21 21:00 77 22 125/84 92 Room Air 09/29/21 20:56 Room Air 09/29/21 20:36 36.6 09/29/21 20:00 95 Room Air 09/29/21 20:00 81 25 125/91 93 Room Air 09/29/21 19:00 80 09/29/21 19:00 80 14 130/88 93 Room Air 09/29/21 18:00 83 26 141/89 94 Room Air 09/29/21 17:00 87 31 131/81 94 Room Air 09/29/21 16:09 36.0 09/29/21 16:00 81 26 139/75 Room Air 09/29/21 15:25 92 Room Air 09/29/21 15:00 86 22 159/75 Room Air 09/29/21 14:00 90 27 135/74 92 Room Air 09/29/21 13:00 90 17 134/88 93 Room Air 09/29/21 12:52 95 09/29/21 12:30 96 Room Air 09/29/21 12:00 89 20 130/92 93 Room Air 09/29/21 11:15 37.3 09/29/21 11:00 90 19 130/81 93 Room Air 09/29/21 10:00 96 20 140/86 98 Room Air 09/29/21 09:00 93 23 147/100 98 Room Air 09/29/21 08:00 98 22 131/87 96 Room Air 09/29/21 08:00 96 Room Air 09/29/21 07:37 37.4 09/29/21 07:00 104 09/29/21 07:00 101 18 115/100 98 Room Air I & O 09/30/21 07:00 Intake Total 410 ml Output Total 2075 ml Balance -1665 ml Capillary Refill : Less Than 3 Seconds General Appearance: Anxious, Chronically ill HEENT: PERRL/EOMI Neck: Full Range of Motion, Normal Inspection, Non Tender Respiratory: Chest Non Tender, Lungs Clear, Normal Breath Sounds, No Accessory Muscle Use, No Respiratory Distress; No Rhonci, No Stridor, No Wheezing Cardiovascular: Regular Rate, Rhythm, No Edema, No Murmur, Normal Peripheral Pulses Peripheral Pulses: 2+ Dorsalis Pedis (R), 2+ Left Dors-Pedis (L), 2+ Radial Pulses (R), 2+ Radial Pulses (L) Gastrointestinal: normal bowel sounds, soft; No abnormal bowel sounds, No distended, No guarding; tenderness (tenderness to deep palpation) Extremity: Normal Capillary Refill, Normal Range of Motion, Non Tender, No Pedal Edema Neurologic/Psychiatric: Alert, Disoriented (Disoriented to situation), Other (tremulous and anxious) Skin: Normal Color, Warm/Dry, Ecchymosis (to right side abdomen), Tattoos/Piercings Lymphatic: No Adenopathy Results Lab Laboratory Tests 09/29/21 11:15: Glucometer 79 09/29/21 17:23: Glucometer 76 09/29/21 23:46: Glucometer 77 09/30/21 04:45: White Blood Count 4.1L, Red Blood Count 3.48L, Hemoglobin 11.1L, Hematocrit 33L, Mean Corpuscular Volume 94, Mean Corpuscular Hemoglobin 32, Mean Corpuscular Hemoglobin Concent 34, Red Cell Distribution Width 11.8, Platelet Count 134, Mean Platelet Volume 11.3, Immature Granulocyte % (Auto) 0, Neutrophils (%) (Auto) 67, Lymphocytes (%) (Auto) 22, Monocytes (%) (Auto) 7, Eosinophils (%) (Auto) 3, Basophils (%) (Auto) 1, Neutrophils # (Auto) 2.7, Lymphocytes # (Auto) 0.9L, Monocytes # (Auto) 0.3, Eosinophils # (Auto) 0.1, Basophils # (Auto) 0.0, Immature Granulocyte # (Auto) 0.0, Sodium Level 138, Potassium Level 3.1L, Chloride Level 107, Carbon Dioxide Level 21, Anion Gap 10, Blood Urea Nitrogen 8, Creatinine 0.71, Estimat Glomerular Filtration Rate 104, BUN/Creatinine Ratio 11, Glucose Level 77, Calcium Level 7.4L, Corrected Calcium 8.5, Phosphorus Level 2.2L, Magnesium Level 1.9, Total Bilirubin 1.3H, Aspartate Amino Transf (AST/SGOT) 142H, Alanine Aminotransferase (ALT/SGPT) 52, Alkaline Phosphatase 139H, Total Protein 4.8L, Albumin 2.6L Assessment/Plan Assessment/Plan Assessment/Plan Acute alcoholic pancreatitis Alcohol intoxication Alcohol hallucinosis Delirium tremens Nausea, vomiting, epigastric abdominal pain Transaminitis Hypokalemia DVT ppx Anxiety/Depression Gallbladder US -showed no visualized stone -mild elevated echotexture of liver suggestive of fatty infiltration -no appreciable free fluid or demonstrated fluid collection, although aco ustical windows were limited and patient cooperability was minimal continue clears Continue IVF's Continue antiemetics Continue pain meds Continue CIWA Continue current medical management NHI MOROCHO DO 09/30/21 2332: Subjective Time Seen by a Provider: 12:00 Subjective/Events-last exam Patient slightly more interactive today than yesterday. She seems anxious. She is tremulous. Patient still with confusion. Alert and oriented x2 today. Patient having epigastric abdominal pain that is minimal. No radiation of pain. Has no other complaints at this time denies nausea vomiting fever sweats chills shortness of breath or chest pain. Objective Exam General Appearance: Anxious, Chronically ill HEENT: PERRL/EOMI Neck: Normal Inspection, Non Tender Respiratory: Chest Non Tender, No Accessory Muscle Use, No Respiratory Distress Cardiovascular: Regular Rate, Rhythm, No JVD Gastrointestinal: soft; No distended, No guarding; tenderness (tenderness to deep palpation epigastric area) Extremity: Normal Capillary Refill, Normal Range of Motion, Non Tender Neurologic/Psychiatric: Alert; No Oriented x3; Disoriented (Disoriented to s ituation), Other (tremulous and anxious) Skin: Normal Color, Warm/Dry, Ecchymosis (to right side abdomen), Tattoos/Piercings Lymphatic: No Adenopathy Assessment/Plan Assessment/Plan Assessment/Plan Acute alcoholic pancreatitis Alcohol intoxication Alcohol hallucinosis Delirium tremens Nausea, vomiting, epigastric abdominal pain Transaminitis Hypokalemia DVT ppx Anxiety/Depression Gallbladder US -showed no visualized stone -mild elevated echotexture of liver suggestive of fatty infiltration -no appreciable free fluid or demonstrated fluid collection, although acoustical windows were limited and patient cooperability was minimal diet advance as tolerates, Continue IVF's Continue antiemetics Continue pain meds Continue CIWA Continue current medical management Supervisory-Addendum Brief Verification & Attestation Participated in pt care: history, MDM, physical Personally performed: exam, history, MDM, supervision of care Care discussed with: Medical Student Procedures: n/a Results interpretation: Verified all documentation Verification and Attestation of Medical Student E/M Service A medical student performed and documented this service in my presence. I reviewed and verified all information documented by the medical student and made modifications to such information, when appropriate. I personally performed the physical exam and medical decision making. Nhi Morocho, Sep 30, 2021,23:29 MELLO JIMENEZ MED STUDENT Sep 30, 2021 06:49 NHI MOROCHO DO Sep 30, 2021 23:32
[2021-09-30] MEDS: DOCUSATE SODIUM 100 MG (COLACE) CAP PO SCH ×2 (08:30→20:46)
[2021-09-30] MEDS: FOLIC ACID 1 MG TAB PO SCH (08:30)
[2021-09-30] MEDS: PANTOPRAZOLE 40 MG (PROTONIX) VIAL IV SCH (08:30)
[2021-09-30] MEDS: MAGNESIUM OXIDE (MAG-OX)400 MG TAB PO SCH ×2 (08:30→20:46)
--- NOTE | 2021-09-30 10:31 | Tele-ICU Progress Note ---
Subjective Date Seen by a Provider: Sep 30, 2021 Time Seen by a Provider: 10:31 Sepsis Event Evaluation Height, Weight, BMI Height: '" Weight: lbs. oz. kg; 28.51 BMI Method: Exam Exam Patient acknowledged, consented, and participated in this virtual visit which was conducted using real time audio/video Vital Signs Date Time Temp Pulse Resp B/P (MAP) Pulse Ox O2 Delivery O2 Flow Rate FiO2 09/30/21 09:00 82 10 114/76 93 Room Air 09/30/21 08:00 93 Room Air 09/30/21 08:00 102 16 132/68 96 Room Air 09/30/21 08:00 37.1 09/30/21 07:00 79 17 120/86 95 Room Air 09/30/21 07:00 88 09/30/21 06:00 80 17 119/79 93 Room Air 09/30/21 05:00 75 15 127/86 92 Room Air 09/30/21 04:00 36.8 Room Air 09/30/21 04:00 95 Room Air 09/30/21 04:00 81 16 107/93 95 Room Air 09/30/21 03:00 82 15 113/83 95 Room Air 09/30/21 02:00 83 15 119/90 96 Room Air 09/30/21 01:00 82 17 116/72 95 Room Air 09/30/21 01:00 82 09/30/21 00:01 37.0 95 Room Air 09/30/21 00:00 81 12 121/87 94 Room Air 09/29/21 23:59 95 Room Air 09/29/21 23:00 75 14 127/80 93 Room Air 09/29/21 22:00 80 18 114/96 92 Room Air 09/29/21 21:00 77 22 125/84 92 Room Air 09/29/21 20:56 Room Air 09/29/21 20:36 36.6 09/29/21 20:00 95 Room Air 09/29/21 20:00 81 25 125/91 93 Room Air 09/29/21 19:00 80 09/29/21 19:00 80 14 130/88 93 Room Air 09/29/21 18:00 83 26 141/89 94 Room Air 09/29/21 17:00 87 31 131/81 94 Room Air 09/29/21 16:09 36.0 09/29/21 16:00 81 26 139/75 Room Air 09/29/21 15:25 92 Room Air 09/29/21 15:00 86 22 159/75 Room Air 09/29/21 14:00 90 27 135/74 92 Room Air 09/29/21 13:00 90 17 134/88 93 Room Air 09/29/21 12:52 95 09/29/21 12:30 96 Room Air 09/29/21 12:00 89 20 130/92 93 Room Air 09/29/21 11:15 37.3 09/29/21 11:00 90 19 130/81 93 Room Air I & O 09/30/21 07:00 Intake Total 410 ml Output Total 2075 ml Balance -1665 ml Height & Weight Height: '" Weight: lbs. oz. kg; 28.51 BMI Method: General Appearance: Anxious, Chronically ill HEENT: PERRL/EOMI Neck: Full Range of Motion, Normal Inspection, Non Tender Respiratory: Chest Non Tender, Lungs Clear, Normal Breath Sounds, No Accessory Muscle Use, No Respiratory Distress; No Rhonci, No Stridor, No Wheezing Cardiovascular: Regular Rate, Rhythm, No Edema, No Murmur, Normal Peripheral Pulses Capillary Refill: Less Than 3 Seconds Peripheral Pulses: 2+ Dorsalis Pedis (R), 2+ Left Dors-Pedis (L), 2+ Radial Pulses (R), 2+ Radial Pulses (L) Gastrointestinal: normal bowel sounds, soft; No abnormal bowel sounds, No distended, No guarding; tenderness (tenderness to deep palpation) Extremity: Normal Capillary Refill, Normal Range of Motion, Non Tender, No Pedal Edema Neurologic/Psychiatric: Alert, Disoriented (Disoriented to situation), Other (tremulous and anxious) Skin: Normal Color, Warm/Dry, Ecchymosis (to right side abdomen), Tattoos/Piercings Lymphatic: No Adenopathy Results Lab Laboratory Tests 09/28/21 16:30 09/29/21 04:50 09/30/21 04:45 Assessment/Plan Assessment/Plan (Tele-ICU Physician , Progress Note ) Available chart/ vitals / labs / Images reviewed Video assessment done using teleICU camera, rest of exam as per RN Discussed with RN , EXAM PER RN Events overnight : Afebrile FiO2 - 2l I/O = Drips: [id number] Pressors: , hemodynamically stable Consultants: Hospital course: (09/28) 50yr old female admitted with acute alcoholic pancreatitis and intoxication A/P ETOn intox / withrdrawal - CIWA thiamine , folic acid Pancreatitis ( no necrosis on CT 09/28 - follow labs - pain control -off abx Lines : (Central Line Necessity Reviewed) Jean: + OG: Nutrition: clear liquid Analgesia: Anxiety/ delirium VTE Prophylaxis: destiney 40 Stress Ulcer Prophylaxis: ppi Plans in collaboration with bedside consultants and IM MDs. Discussed with RN to reach out if any questions or concerns A total of 31 minutes of critical care time was devoted to this patient today, required to treat and/or prevent further deterioration of critical care condition ( as above) . JONATHAN MAHMOOD MD Sep 30, 2021 10:31
[2021-09-30] MEDS ORDERED: METOCLOPRAMIDE 10 MG (REGLAN) TAB PO PRN (11:00)
[2021-09-30] MEDS ORDERED: NON-FORMULARY MEDICATION 1 EA EA (Hydroxyzine HCl 25 MG) PO PRN (11:00)
[2021-09-30] MEDS ORDERED: MULTIVIT W/MINERALS TAB (THERAGRAN M) PO NR (11:15)
--- NOTE | 2021-09-30 11:46 | Physical Therapy Evaluation ---
PT Evaluation-General Medical Diagnosis Admission Date Sep 28, 2021 at 19:41 Medical Diagnosis: alcohol withdrawl, pancreatitis Onset Date: Sep 28, 2021 Therapy Diagnosis Therapy Diagnosis: impaired mobility, strength, endurance, balance Precautions Precautions/Isolations: Fall Prevention, Standard Precautions Referral Physician: Emily Mcelroy DO Reason for Referral: Evaluation/Treatment Medical History Additional Medical History Past Medical History Hypothyroidsim Loss of Vision: Denies Hearing Impairment: Denies Anxiety, PTSD, Depression Reviewed History: Yes Social History Entry Into Home: Level Entry Prior Prior Level of Function SCALE: Activities may be completed with or without assistive devices. 1-Vxeuyycico-pmdwxqk completes the activity by him/herself with no assistance from a helper. 5-Set-up or Clean-up Assistance-helper sets up or cleans up; patient completes activity. [place] assists only prior to or following the activity. 4-Supervision or Touching Assistance-helper provides verbal cues and/or touching/steadying and/or contact guard assistance as patient completes activity. Assistance may be provided throughout the activity or intermittently. 3-Partial/Moderate Assistance-helper does LESS THAN HALF the effort. [place] lifts, holds or supports trunk or limbs, but provides less than half the effort. 2-Substantial/Maximal Assistance-helper does MORE THAN HALF the effort. [place] lifts or holds trunk or limbs and provides more than half the effort. 4-Fyjlraioj-ygdkgs does ALL the effort. Patient does none of the effort to complete the activity. Or, the assistance of 2 or more helpers is required for the patient to complete the activity. If activity was not attempted, code reason: 7-Patient Refused. 9-Not Applicable-not attempted and the patient did not perform the activity before the current illness, exacerbation or injury. 10-Not Attempted due to Environmental Limitations-(lack of equipment, weather restraints, etc.). 88-Not Attempted due to Medical Conditions or Safety Concerns. Bed Mobility: 6 Transfers (B,C,W/C): 6 Gait: 6 Indoor Mobility (Ambulation): Independent PT Evaluation-Current Subjective Patient in bed pre tx, sleeping, very hard to rouse, agrees to PT after waking, has unrated pain in abdomen. Pt/Family Goals none stated Objective Patient Orientation: Person, Confused Attachments: Jean Catheter, IV ROM/Strength ROM Lower Extremities WNL Strength Lower Extremities grossly 4+/5 BLE Sensory Vision: Wears Glasses Hearing: Functional Sensation Right Lower Extremit: Intact Sensation Left Lower Extremity: Intact Transfers Roll Left to Right (QC): 6 Sit to Lying (QC): 6 Lying to Sitting/Side of Bed(Q: 6 Sit to Stand (QC): 3 Chair/Fol-xo-Izenm Xfer(QC): 3 After standing patient states she needs to use the commode, the commode is a short distance away, therapist grabs it and puts it next to the bed, during this time patient is very impulsive trying to ambulate to the commode and losing balance, needs assist to maintain balance, commode is placed next to her bed and she turns (using RW the whole time) and again loses balance trying to sit impulsively. She uses the commode and wipes herself and transfers back to the bed. PT tech assists during tx. Balance Sitting Static: Good Sitting Dynamic: Good Standing Static: Poor Standing Dynamic: Poor Treatment BLE supine exercises x20 (AP, HS) Assessment/Needs Patient in bed post tx with nurse call, phone, tray, all needs met, bed alarm on. Patient has impaired mobility, strength, endurance, balance. Patient is very impulsive. Rehab Potential: Fair PT Biomass Technician Goals Biomass Technician Goals PT Snf Goals Time Frame: Oct 07, 2021 Roll Left & Right (QC): 6 Sit to Lying (QC): 6 Lying-Sitting on Side/Bed(QC): 6 Sit to Stand (QC): 5 Chair/Xwj-cf-Ustat Xfer(QC): 5 Walk 10 feet (QC): 5 Walk 50ft with 2 Turns (QC): 5 PT Plan Problem List Problem List: Activity Tolerance, Functional Strength, Safety, Balance, Gait, Transfer, ROM Treatment/Plan Treatment Plan: Continue Plan of Care Treatment Plan: Education, Functional Activity Jose Martin, Functional Strength, Gait, Safety, Therapeutic Exercise, Transfers Treatment Duration: Oct 07, 2021 Frequency: 6 times per week Estimated Hrs Per Day: .25 hour per day Patient and/or Family Agrees t: Yes Safety Risks/Education Patient Education: Transfer Techniques, Correct Positioning, Safety Issues Teaching Recipient: Patient Teaching Methods: Demonstration, Discussion Response to Teaching: Reinforcement Needed Discharge Recommendations Plan Patient will perform bed mobility and transfer training, balance and endurance training, functional strengthening, stair training, gait training, and education, to improve functional mobility and independence at home. Therapy Discharge Recommendati: Scheduled Assistance, Home & Family Time/GCodes Time In: 1107 Time Out: 1120 Total Billed Treatment Time: 13 Total Billed Treatment 1 visit ISIDORO SOLORZANO PT Sep 30, 2021 11:46
--- NOTE | 2021-09-30 14:37 | Occupational Therapy Eval ---
OT Evaluation-General/PLF Medical Diagnosis Admission Date Sep 28, 2021 at 19:41 Medical Diagnosis: alcohol withdrawl, pancreatitis Onset Date: Sep 28, 2021 Therapy Diagnosis Therapy Diagnosis: reduced adl status Precautions Precautions/Isolations: Fall Prevention, Standard Precautions Referral Physician: Emily Mcelroy DO Referral Reason: Evaluation/Treatment Medical History Additional Medical History alcoholic hepatitis Current History Pt presents to hospital with abdominal pain. Found to have acute alcoholic hepatitis and pancreatitis Pt reports that she lives alone in an apartment. At least 13 steps go up/down. She was not using any AD prior to admission and was indep with adls and iadls. 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 Reviewed History: Yes Social History Home: Apartment Current Living Status: Alone Entry Into Home: Level Entry ADL-Prior Level of Function SCALE: Activities may be completed with or without assistive devices. 3-Djhxdnykla-buizjek completes the activity by him/herself with no assistance from a helper. 5-Set-up or Clean-up Assistance-helper sets up or cleans up; patient completes activity. [place] assists only prior to or following the activity. 4-Supervision or Touching Assistance-helper provides verbal cues and/or t ouching/steadying and/or contact guard assistance as patient completes activity. Assistance may be provided throughout the activity or intermittently. 3-Partial/Moderate Assistance-helper does LESS THAN HALF the effort. [place] lifts, holds or supports trunk or limbs, but provides less than half the effort. 2-Substantial/Maximal Assistance-helper does MORE THAN HALF the effort. [place] lifts or holds trunk or limbs and provides more than half the effort. 3-Tsdzxebyr-oxohck does ALL the effort. Patient does none of the effort to complete the activity. Or, the assistance of 2 or more helpers is required for the patient to complete the activity. If activity was not attempted, code reason: 7-Patient Refused. 9-Not Applicable-not attempted and the patient did not perform the activity before the current illness, exacerbation or injury. 10-Not Attempted due to Environmental Limitations-(lack of equipment, weather restraints, etc.). 88-Not Attempted due to Medical Conditions or Safety Concerns. Self Care: Independent Functional Cognition: Independent Drive Self: Yes OT Current Status Subjective Pt reports abdominal and chest pain as 7/10. RN informed. Appearance Pt returned to supine in bed, all needs within reach. Mental Status/Objective Patient Orientation: Person, Place, Situation Attachments: Jean Catheter, IV Current Hearing Aids: No Dentures/Partials: No Hand Dominance: Left Upper Extremity ROM WNL Upper Extremity Strength 4/5 grossly ADL-Treatment Oral Hygiene (QC): 5 Lower Body Dressing (QC): 3 (per clinical judgment) On/Off Footwear (QC): 5 Pt being transferred from ICU to room 413 at OT arrival. Once in room, pt able to sit EOB with SBA. C/o dizziness upon sitting up. Improves slightly with rest. She was able to don/doff bilateral socks with SBA. She reports pain in R hip, but did not require any physical assistance to complete task. She stood with Min A. Again, c/o dizziness. Unsteady on feet. No assistive device currently present in room due to recent transfer. Pt may benefit from use of walker until LE's become stronger. Anticipate steadying assist needed for all standing functional tasks. Pt sat EOB, set up for grooming tasks. Able to follow directions with extra time for processing. Education OT Patient Education: Correct positioning, Modified ADL techniques, Progress toward Goal/Update tx plan, Purpose of tx/functional activities, Safety issues, Transfer techniques Teaching Recipient: Patient Teaching Methods: Demonstration, Discussion Response to Teaching: Verbalize Understanding, Return Demonstration, Reinforcement Needed OT Senior Care Goals Senior Care Goals Time Frame: Oct 09, 2021 Eating (QC): 6 Oral Hygiene (QC): 6 Toileting Hygiene (QC): 4 Upper Body Dressing (QC): 5 Lower Body Dressing (QC): 5 1=Demonstrate adherence to instructed precautions during ADL tasks. 2=Patient will verbalize/demonstrate understanding of assistive devices/modifications for ADL. 3=Patient will improve strength/tolerance for activity to enable patient to perform ADL's. OT Education/Plan Problem List/Assessment Assessment: Decreased Activ Tolerance, Decreased UE Strength, Impaired Cognition, Impaired Funct Balance, Impaired I ADL's, Impaired Self-Care Skills Discharge Recommendations Plan/Recommendations: Continue POC Target Placement ongoing assessment Treatment Plan/Plan of Care Treatment,Training & Education: Yes Patient would benefit from OT for education, treatment and training to promote independence in ADL's, mobility, safety and/or upper extremity function for ADL's. Plan of Care: ADL Retraining, Cognitive Retraining, Functional Mobility, Group Exercise/Act as Ind, UE Funct Exercise/Act Treatment Duration: Oct 09, 2021 Frequency: 3 times per week (3-5x/week ) Estimated Hrs Per Day: .25 hour per day Agreement: Yes Rehab Potential: Fair Time/GCodes Start Time: 14:10 Stop Time: 14:26 Total Time Billed (hr/min): 16 Billed Treatment Time 1 visit Karin Crawford OT Sep 30, 2021 14:37
[2021-09-30 19:07] VITALS: BP 119/75
[2021-09-30] MEDS: MELATONIN 3 MG TABLET PO PRN (20:46)
[2021-09-30] MEDS: ENOXAPARIN 40 MG/0.4 ML (LOVENOX) SYR SC SCH (20:46)
[2021-10-01] VITALS (8 sets, daily range): BP systolic 109–140; BP diastolic 65–85
[2021-10-01] MEDS: NS IV 1000 ML 1,000 ML IV SCH (04:54)
[2021-10-01 05:47] LABS: BASOPHILS % (AUTO) 1 % (0-10); HEMOGLOBIN 9.8 g/dL (11.5-16.0)
[2021-10-01 05:49] LABS: EOSINOPHILS # (AUTO) 0.3 10^3/uL (0.0-0.3); EOSINOPHILS % (AUTO) 7 % (0-10); HEMATOCRIT 29 % (35-52); LYMPHOCYTES # (AUTO) 0.9 10^3/uL (1.0-4.0); LYMPHOCYTES % (AUTO) 23 % (12-44); MEAN CORPUSCULAR HEMOGLOBIN 32 pg (25-34); MEAN CORPUSCULAR HGB CONC 34 g/dL (32-36); MEAN CORPUSCULAR VOLUME 94 fL (80-99); MEAN PLATELET VOLUME 11.9 fL (9.0-12.2); MONOCYTES # (AUTO) 0.3 10^3/uL (0.0-1.0); MONOCYTES % (AUTO) 8 % (0-12); NEUTROPHILS # (AUTO) 2.5 10^3/uL (1.8-7.8); NEUTROPHILS % (AUTO) 61 % (42-75); PLATELET COUNT 112 10^3/uL (130-400)
[2021-10-01 05:56] LABS: ALBUMIN 2.4 GM/DL (3.2-4.5); POTASSIUM 3.6 MMOL/L (3.6-5.0)
[2021-10-01 05:58] LABS: CALCIUM 7.4 MG/DL (8.5-10.1)
[2021-10-01 05:59] LABS: TOTAL PROTEIN 4.8 GM/DL (6.4-8.2)
[2021-10-01 06:01] LABS: BILIRUBIN,TOTAL 0.8 MG/DL (0.1-1.0)
[2021-10-01 06:02] LABS: CREATININE SERUM 0.66 MG/DL (0.60-1.30)
--- NOTE | 2021-10-01 06:02 | Progress Note - Hospitalist ---
Subjective HPI/CC On Admission Date Seen by Provider: Oct 01, 2021 Time Seen by Provider: 11:00 CC: Alcohol withdrawal with pancreatitis HPI: 50 yr WF alcoholic who presented with abdominal pain found to have acute alcoholic hepatitis and pancreatitis. She is now hallucinating and requiring a lot of management with Ativan. She remains in the ICU. Subjective/Events-last exam Pt is doing a lot better More lucid Still a little bit anxious Will discontinue catheter and IV fluids today Advancing diet Lipase is up a bit at 620 Overall much improved Review of Systems General: Fatigue, Malaise Objective Exam Vital Signs Vital Signs Date Time Temp Pulse Resp B/P (MAP) Pulse Ox O2 Delivery O2 Flow Rate FiO2 10/02/21 05:01 36.8 10/02/21 03:56 85 20 119/68 (85) 100 Room Air 09/28/21 20:51 21 Capillary Refill : Less Than 3 Seconds General Appearance: No Apparent Distress, WD/WN, Anxious, Chronically ill Respiratory: Lungs Clear, Normal Breath Sounds Cardiovascular: Regular Rate, Rhythm Neurologic/Psychiatric: Alert, Oriented x3, No Motor/Sensory Deficits, Normal Mood/Affect Results/Procedures Lab Patient resulted labs reviewed. Assessment/Plan Assessment and Plan Assess & Plan/Chief Complaint Assessment: Acute alcoholic pancreatitis Alcohol abuse with withdrawal with perceptual disturbance Nausea Alcohol intoxication Hypolalemia Depression Anxiety Hypothyroidism Ulcer prophylaxis DVT prophylaxis Plan: Move to fourth floor Supportive care 10/01/2021: Hep-Lock IV fluid DC catheter Critical Care Critically Ill Patient ADI LOMELI DO Oct 01, 2021 06:02
[2021-10-01 06:05] LABS: MAGNESIUM 1.7 MG/DL (1.6-2.4)
[2021-10-01] MEDS: LEVOTHYROXINE 50 MCG (LEVOTHROID) TAB PO SCH (06:17)
[2021-10-01] MEDS: MULTIVIT W/MINERALS TAB (THERAGRAN M) PO SCH (06:18)
[2021-10-01] MEDS: THIAMINE 100 MG (VITAMIN B-1) TAB PO SCH (06:18)
--- NOTE | 2021-10-01 06:18 | Progress Note - Surgery ---
TERESA LOUIS 10/01/21 0618: Subjective Date Seen by a Provider: Oct 01, 2021 Time Seen by a Provider: 06:00 Subjective/Events-last exam Pt much more alert and talkative today. Denies hallucinations. Does not appear tremulous at the moment, but does report being very weak and off balance. Pt knows which hospital she is at and who she is, but does not know the date. Her stomach "has improved" and is not painful; no N/V. She does reference some lower back pain, as well as inability to sleep and restless leg syndrome. She has not had a bowel movement in "a couple days" and reports abnormal smelling vaginal discharge. Pt has been eating soft foods and drinking frequently. She reports that she is starting a regular diet today, and that she has been vegan for years. She is concerned about how that is affecting her labs. Pt admits to feeling anxious, but denies CP, SOB, and palpitations at this time. Pt reports losing her phone and wallet at the hospital some time after admission. Review of Systems General: Fatigue, Appetite (improving) HEENT: Head Aches, Ear Pain (she believes is tied to WALLS) Pulmonary: No Dyspnea; Cough Cardiovascular: No: Chest Pain, Palpitations Gastrointestinal: Abdominal Pain (improved); No: Nausea, Vomiting Genitourinary: No Incontinence, No Retention Musculoskeletal: back pain (lower back/glutes area); No: leg pain Neurological: Weakness, Incoordination Focused Exam Respiratory: Lungs Clear, Normal Breath Sounds, No Respiratory Distress Cardiovascular: Regular Rate, Rhythm, No Murmur, Normal Peripheral Pulses Peripheral Pulses: 2+ Radial Pulses (R), 2+ Radial Pulses (L) Skin: normal color, warm/dry, ecchymosis (bruises on R abdomen, 1 bruise on each medial ankle, 1 bruise on front of each thigh; from fall) Objective Exam Vital Signs Date Time Temp Pulse Resp B/P (MAP) Pulse Ox O2 Delivery O2 Flow Rate FiO2 10/01/21 04:00 37.3 95 18 127/67 (87) 98 Room Air 10/01/21 00:29 37.0 84 18 121/70 (87) 98 Room Air 09/30/21 19:35 Room Air 09/30/21 19:07 37.3 76 18 119/75 (90) 96 Room Air 09/30/21 17:28 Room Air 09/30/21 16:13 37.0 76 18 116/62 98 Room Air 09/30/21 14:45 37.4 77 20 107/73 95 Room Air 09/30/21 14:26 Room Air 09/30/21 12:00 36.9 09/30/21 12:00 93 Room Air 09/30/21 12:00 92 18 110/80 98 Room Air 09/30/21 09:00 82 10 114/76 93 Room Air 09/30/21 08:00 93 Room Air 09/30/21 08:00 102 16 132/68 96 Room Air 09/30/21 08:00 37.1 09/30/21 07:00 79 17 120/86 95 Room Air 09/30/21 07:00 88 I & O 10/01/21 07:00 Intake Total 3310 ml Output Total 1675 ml Balance 1635 ml Capillary Refill : Less Than 3 Seconds General Appearance: No Apparent Distress, WD/WN, Chronically ill HEENT: PERRL/EOMI Neck: Full Range of Motion, Normal Inspection Respiratory: Lungs Clear, Normal Breath Sounds, No Respiratory Distress Cardiovascular: Regular Rate, Rhythm, No Murmur Peripheral Pulses: 2+ Dorsalis Pedis (R), 2+ Left Dors-Pedis (L), 2+ Radial Pulses (R), 2+ Radial Pulses (L) Gastrointestinal: non tender, soft Extremity: Non Tender, No Pedal Edema Neurologic/Psychiatric: Alert, Normal Mood/Affect Skin: Normal Color, Warm/Dry, Ecchymosis (to right side abdomen, bilat medial ankles, front of both thighs from fall), Tattoos/Piercings Results Lab Laboratory Tests 09/30/21 11:52: Glucometer 104 10/01/21 05:22: White Blood Count 4.0L, Red Blood Count 3.09L, Hemoglobin 9.8L, Hematocrit 29L, Mean Corpuscular Volume 94, Mean Corpuscular Hemoglobin 32, Mean Corpuscular Hemoglobin Concent 34, Red Cell Distribution Width 11.7, Platelet Count 112L, Mean Platelet Volume 11.9, Immature Granulocyte % (Auto) 0, Neutrophils (%) (Auto) 61, Lymphocytes (%) (Auto) 23, Monocytes (%) (Auto) 8, Eosinophils (%) (Auto) 7, Basophils (%) (Auto) 1, Neutrophils # (Auto) 2.5, Lymphocytes # (Auto) 0.9L, Monocytes # (Auto) 0.3, Eosinophils # (Auto) 0.3, Basophils # (Auto) 0.0, Immature Granulocyte # (Auto) 0.0, Percent Immature Platelet Fraction 7.4, Sodium Level 136, Potassium Level 3.6, Chloride Level 107, Carbon Dioxide Level 21, Anion Gap 8, Blood Urea Nitrogen 4L, Creatinine 0.66, Estimat Glomerular Filtration Rate 107, BUN/Creatinine Ratio 6, Glucose Level 112H, Calcium Level 7.4L, Corrected Calcium 8.7, Magnesium Level 1.7, Total Bilirubin 0.8, Aspartate Amino Transf (AST/SGOT) 125H, Alanine Aminotransferase (ALT/SGPT) 60H, Alkaline Phosphatase 131, Total Protein 4.8L, Albumin 2.4L, Lipase 652H Microbiology 09/28/21 MRSA Screen - Final, Complete MRSA not isolated Assessment/Plan Assessment/Plan Assessment/Plan Acute alcoholic pancreatitis Alcohol hallucinosis Delirium tremens Nausea, vomiting, epigastric abdominal pain Transaminitis DVT ppx Anxiety/Depression Anemia Low back pain Gallbladder US -showed no visualized stone -mild elevated echotexture of liver suggestive of fatty infiltration -no appreciable free fluid or demonstrated fluid collection, although acoustical windows were limited and patient cooperability was minimal Advance to regular diet today Continue IVF's Continue antiemetics Continue pain meds Continue CIWA Monitor labs and electrolytes NHI MOROCHO DO 10/01/21 1116: Subjective Subjective/Events-last exam Feeling better. More interactive. Minimal epigastric pain. Tolerating diet. Denies n/v fever sweats chills shortness of breath or chest pain. Objective Exam General Appearance: No Apparent Distress, WD/WN, Chronically ill HEENT: PERRL/EOMI, Normal ENT Inspection Neck: Full Range of Motion, Normal Inspection Respiratory: Chest Non Tender, No Accessory Muscle Use, No Respiratory Distress Cardiovascular: Regular Rate, Rhythm, No JVD Gastrointestinal: soft, tenderness (epigastric c deep palpation) Extremity: Non Tender, No Calf Tenderness Neurologic/Psychiatric: Alert, Oriented x3, Normal Mood/Affect Skin: Normal Color, Warm/Dry, Ecchymosis (to right side abdomen, bilat medial ankles) Lymphatic: No Adenopathy Assessment/Plan Assessment/Plan Assessment/Plan Acute alcoholic pancreatitis Alcohol hallucinosis Delirium tremens Nausea, vomiting, epigastric abdominal pain Transaminitis DVT ppx Anxiety/Depression Anemia Low back pain Gallbladder US -showed no visualized stone -mild elevated echotexture of liver suggestive of fatty infiltration -no appreciable free fluid or demonstrated fluid collection, although acoustical windows were limited and patient cooperability was minimal Diet as tolerates Continue IVF's Continue antiemetics Continue pain meds Continue CIWA Monitor labs and electrolytes Supervisory-Addendum Brief Verification & Attestation Participated in pt care: history, MDM, physical Personally performed: exam, history, MDM, supervision of care Care discussed with: Medical Student Procedures: n/a Results interpretation: Verified all documentation Verification and Attestation of Medical Student E/M Service A medical student performed and documented this service in my presence. I reviewed and verified all information documented by the medical student and made modifications to such information, when appropriate. I personally performed the physical exam and medical decision making. Nhi Morocho, Oct 01, 2021,11:16 TERESA LOUIS Oct 01, 2021 06:18 NHI MOROCHO DO Oct 01, 2021 11:16
[2021-10-01] MEDS: MAGNESIUM OXIDE (MAG-OX)400 MG TAB PO SCH (08:08)
[2021-10-01] MEDS: PANTOPRAZOLE 40 MG (PROTONIX) TAB PO SCH (08:08)
[2021-10-01] MEDS: FOLIC ACID 1 MG TAB PO SCH (08:08)
[2021-10-01] MEDS: DOCUSATE SODIUM 100 MG (COLACE) CAP PO SCH ×2 (08:08→20:38)
[2021-10-01] MEDS: hydrOXYzine (VISTARIL/ATARAX) 25 MG capsule/tablet PO PRN ×3 (08:11→20:39)
[2021-10-01] MEDS ORDERED: PANTOPRAZOLE 40 MG (PROTONIX) TAB PO SCH (09:00)
--- NOTE | 2021-10-01 11:38 | Physical Therapy Daily Note ---
PT Daily Note-Current Subjective Patient presented laying in her bed and agreed to participate in physical therapy. Mental Status Patient Orientation: Person, Place, Situation Attachments: IV Transfers SCALE: Activities may be completed with or without assistive devices. 5-Kdsndmrdjm-njqvora completes the activity by him/herself with no assistance from a helper. 5-Set-up or Clean-up Assistance-helper sets up or cleans up; patient completes activity. [place] assists only prior to or following the activity. 4-Supervision or Touching Assistance-helper provides verbal cues and/or touching/steadying and/or contact guard assistance as patient completes activity. Assistance may be provided throughout the activity or intermittently. 3-Partial/Moderate Assistance-helper does LESS THAN HALF the effort. [place] lifts, holds or supports trunk or limbs, but provides less than half the effort. 2-Substantial/Maximal Assistance-helper does MORE THAN HALF the effort. [place] lifts or holds trunk or limbs and provides more than half the effort. 5-Ppvsajujj-yrqypg does ALL the effort. Patient does none of the effort to complete the activity. Or, the assistance of 2 or more helpers is required for the patient to complete the activity. If activity was not attempted, code reason: 7-Patient Refused. 9-Not Applicable-not attempted and the patient did not perform the activity before the current illness, exacerbation or injury. 10-Not Attempted due to Environmental Limitations-(lack of equipment, weather restraints, etc.). 88-Not Attempted due to Medical Conditions or Safety Concerns. Lying to Sitting/Side of Bed(Q: 4 Sit to Stand (QC): 4 Chair/Xmp-uv-Wzuhy Xfer(QC): 4 Gait Training Does the Patient Walk?: Yes Distance: 250' Walk 10 feet (QC): 3 Walk 50 ft with 2 Turns(QC): 3 Walk 150 ft (QC): 3 Gait Assistive Device: FWW Patient ambulated for 250' with FWW and min assist. Patient was shaking with ambulation and reported that her legs felt weak. Treatments Transfers Ambulation Standing endurance at the sink to brush teeth and comb her hair Assessment Patient ambulated, performed transfers, and stood at the sink for self care tasks during therapy. Patient ambulated with min assist due to shakiness and weakness while ambulating. Patient stood at the sink to perform self care tasks with min assist. Patient was left post tx in her chair with nurse call, phone, chair alarm set, and all needs met. PT Senior Care Goals Oncology Rep Specialist Goals PT Oncology Rep Specialist Goals Time Frame: Oct 07, 2021 Roll Left & Right (QC): 6 Sit to Lying (QC): 6 Lying-Sitting on Side/Bed(QC): 6 Sit to Stand (QC): 5 Chair/Pxm-yl-Jxzgd Xfer(QC): 5 Walk 10 feet (QC): 5 Walk 50ft with 2 Turns (QC): 5 PT Plan Problem List Problem List: Activity Tolerance, Functional Strength, Safety, Balance, Gait, Transfer, ROM Treatment/Plan Treatment Plan: Continue Plan of Care Treatment Plan: Education, Functional Activity Jose Martin, Functional Strength, Gait, Safety, Therapeutic Exercise, Transfers Treatment Duration: Oct 07, 2021 Frequency: 6 times per week Estimated Hrs Per Day: .25 hour per day Patient and/or Family Agrees t: Yes Time/GCodes Time In: 952 Time Out: 1009 Total Billed Treatment Time: 15 Total Billed Treatment 1 Visit FA 15 min JIM RAMIREZ PT Oct 01, 2021 11:38
[2021-10-01] MEDS ORDERED: BISACODYL 10 MG SUPP (DULCOLAX) PR PRN (12:00)
[2021-10-01] MEDS ORDERED: MILK OF MAGNESIA 400 MG/5 ML 30 ML UDC PO NR (12:00)
[2021-10-01] MEDS ORDERED: LACTULOSE SYRUP 10GM/15ML (ENULOSE) 30ML UDC PO NR (12:00)
[2021-10-01] MEDS ORDERED: SENNA W/DOCUSATE (SENOKOT S) TABLET PO NR (12:00)
--- NOTE | 2021-10-01 12:41 | Occupational Ther Daily Note ---
OT Current Status-Daily Note Subjective Pt alert, lying in bed. Pt agrees to therapy. Pt states that she is dizzy. No c/o pain. Mental Status/Objective Patient Orientation: Person, Place, Time, Situation Attachments: IV ADL-Treatment Therapy Code Descriptions/Definitions Functional [place] Measure: 0=Not Assessed/NA 4=Minimal Assistance 1=Total Assistance 5=Supervision or Setup 2=Maximal Assistance 6=Modified [place] 3=Moderate Assistance 7=Complete IndependenceSCALE: Activities may be completed with or without assistive devices. 0-Wxdeayvnvb-kvoaguc completes the activity by him/herself with no assistance from a helper. 5-Set-up or Clean-up Assistance-helper sets up or cleans up; patient completes activity. [place] assists only prior to or following the activity. 4-Supervision or Touching Assistance-helper provides verbal cues and/or touching/steadying and/or contact guard assistance as patient completes activity. Assistance may be provided throughout the activity or intermittently. 3-Partial/Moderate Assistance-helper does LESS THAN HALF the effort. [place] lifts, holds or supports trunk or limbs, but provides less than half the effort. 2-Substantial/Maximal Assistance-helper does MORE THAN HALF the effort. [place] lifts or holds trunk or limbs and provides more than half the effort. 5-Lpgovciiq-kzbsnh does ALL the effort. Patient does none of the effort to complete the activity. Or, the assistance of 2 or more helpers is required for the patient to complete the activity. If activity was not attempted, code reason: 7-Patient Refused. 9-Not Applicable-not attempted and the patient did not perform the activity before the current illness, exacerbation or injury. 10-Not Attempted due to Environmental Limitations-(lack of equipment, weather restraints, etc.). 88-Not Attempted due to Medical Conditions or Safety Concerns. Other Treatment Pt states that nrsg assisted with shower prior to OT session. Pt then completed 2 sets 10 reps of 2 exercises working on overall strength with skilled instruction for correct technique. Pt c/o dizziness during exercises, exercises halted at this time. Pt instructed to complete more B UE exercises throughout the day to increase strength and activity tolerance. After session, pt lying in bed with call light/phone in reach. All needs met in room. OT Tooth Cutter [place]ur Goals Tooth Cutter [place] Goals Time Frame: Oct 09, 2021 Eating (QC): 6 Oral Hygiene (QC): 6 Toileting Hygiene (QC): 4 Upper Body Dressing (QC): 5 Lower Body Dressing (QC): 5 1=Demonstrate adherence to instructed precautions during ADL tasks. 2=Patient will verbalize/demonstrate understanding of assistive devices/modifications for ADL. 3=Patient will improve strength/tolerance for activity to enable patient to perform ADL's. OT Education/Plan Problem List/Assessment Assessment: Decreased Activ Tolerance, Decreased UE Strength Discharge Recommendations Plan/Recommendations: Continue POC Treatment Plan/Plan of Care Patient would benefit from OT for education, treatment and training to promote independence in ADL's, mobility, safety and/or upper extremity function for ADL's. Plan of Care: ADL Retraining, Cognitive Retraining, Functional Mobility, Group Exercise/Act as Ind, UE Funct Exercise/Act Treatment Duration: Oct 09, 2021 Frequency: 3 times per week (3-5x/week ) Estimated Hrs Per Day: .25 hour per day Agreement: Yes Rehab Potential: Fair Time/GCodes Start Time: 11:20 Stop Time: 11:40 Total Time Billed (hr/min): 20 Billed Treatment Time 1 visit-EX 1 (20 min) SHALA JESSICA Oct 01, 2021 12:41
[2021-10-01] MEDS: MELATONIN 3 MG TABLET PO PRN (20:38)
[2021-10-01] MEDS: ENOXAPARIN 40 MG/0.4 ML (LOVENOX) SYR SC SCH (20:38)
[2021-10-01] MEDS: ONDANSETRON 4 MG (ZOFRAN) ORAL DISSOLVE TAB PO PRN (22:39)
[2021-10-02] MEDS: ACETAMINOPHEN 325 MG TABLET PO PRN ×3 (00:38→21:58)
[2021-10-02 03:56] VITALS: BP 119/68
[2021-10-02] MEDS: LEVOTHYROXINE 50 MCG (LEVOTHROID) TAB PO SCH (05:51)
[2021-10-02] MEDS: THIAMINE 100 MG (VITAMIN B-1) TAB PO SCH (05:52)
[2021-10-02] MEDS: MULTIVIT W/MINERALS TAB (THERAGRAN M) PO SCH (05:52)
[2021-10-02] MEDS: ONDANSETRON 4 MG (ZOFRAN) ORAL DISSOLVE TAB PO PRN ×3 (05:52→18:08)
[2021-10-02 06:20] LABS: BASOPHILS % (AUTO) 1 % (0-10); EOSINOPHILS # (AUTO) 0.4 10^3/uL (0.0-0.3); EOSINOPHILS % (AUTO) 9 % (0-10); HEMATOCRIT 32 % (35-52); HEMOGLOBIN 10.9 g/dL (11.5-16.0); LYMPHOCYTES % (AUTO) 26 % (12-44); MEAN CORPUSCULAR HEMOGLOBIN 32 pg (25-34); MEAN CORPUSCULAR HGB CONC 34 g/dL (32-36); MEAN CORPUSCULAR VOLUME 94 fL (80-99); MEAN PLATELET VOLUME 11.4 fL (9.0-12.2); MONOCYTES # (AUTO) 0.4 10^3/uL (0.0-1.0); MONOCYTES % (AUTO) 9 % (0-12); NEUTROPHILS # (AUTO) 2.2 10^3/uL (1.8-7.8); NEUTROPHILS % (AUTO) 55 % (42-75); PLATELET COUNT 150 10^3/uL (130-400); WHITE BLOOD COUNT 3.9 10^3/uL (4.3-11.0)
--- NOTE | 2021-10-02 06:32 | Progress Note - Hospitalist ---
Subjective HPI/CC On Admission Date Seen by Provider: Oct 02, 2021 Time Seen by Provider: 11:30 CC: Alcohol withdrawal with pancreatitis HPI: 50 yr WF alcoholic who presented with abdominal pain found to have acute alcoholic hepatitis and pancreatitis. She is now hallucinating and requiring a lot of management with Ativan. She remains in the ICU. Subjective/Events-last exam Patient doing a lot better Eating a little bit more Walking around better Still weak Labs reviewed Patient will be doing well enough to go home tomorrow Review of Systems General: Fatigue, Malaise Objective Exam Vital Signs Vital Signs Date Time Temp Pulse Resp B/P (MAP) Pulse Ox O2 Delivery O2 Flow Rate FiO2 10/03/21 01:09 36.6 10/03/21 00:58 74 20 121/81 (94) 95 Room Air 09/28/21 20:51 21 Capillary Refill : Less Than 3 Seconds General Appearance: No Apparent Distress, WD/WN, Chronically ill Respiratory: Lungs Clear, Normal Breath Sounds Cardiovascular: Regular Rate, Rhythm Neurologic/Psychiatric: Alert, Oriented x3 Results/Procedures Lab Patient resulted labs reviewed. Assessment/Plan Assessment and Plan Assess & Plan/Chief Complaint Assessment: Acute alcoholic pancreatitis Alcohol abuse with withdrawal with perceptual disturbance Nausea Alcohol intoxication Hypolalemia Depression Anxiety Hypothyroidism Ulcer prophylaxis DVT prophylaxis Plan: Move to fourth floor Supportive care 10/01/2021: Hep-Lock IV fluid DC catheter 10/02/2021: Supportive care Monitor closely Critical Care Critically Ill Patient ADI LOMELI DO Oct 02, 2021 06:32
[2021-10-02 06:36] LABS: ALBUMIN 2.9 GM/DL (3.2-4.5); POTASSIUM 3.9 MMOL/L (3.6-5.0)
[2021-10-02 06:37] LABS: CALCIUM 8.4 MG/DL (8.5-10.1)
[2021-10-02 06:39] LABS: TOTAL PROTEIN 5.8 GM/DL (6.4-8.2)
[2021-10-02 06:40] LABS: BILIRUBIN,TOTAL 0.8 MG/DL (0.1-1.0)
[2021-10-02 06:42] LABS: CREATININE SERUM 0.72 MG/DL (0.60-1.30)
[2021-10-02 06:45] LABS: MAGNESIUM 1.9 MG/DL (1.6-2.4)
[2021-10-02 07:22] VITALS: BP 111/78
[2021-10-02] MEDS: DOCUSATE SODIUM 100 MG (COLACE) CAP PO SCH ×2 (08:39→20:01)
[2021-10-02] MEDS: FOLIC ACID 1 MG TAB PO SCH (08:39)
[2021-10-02] MEDS: PANTOPRAZOLE 40 MG (PROTONIX) TAB PO SCH (08:39)
[2021-10-02] MEDS: hydrOXYzine (VISTARIL/ATARAX) 25 MG capsule/tablet PO PRN ×2 (08:39→20:01)
[2021-10-02 11:15] VITALS: BP 133/90
--- NOTE | 2021-10-02 12:46 | Progress Note ---
Subjective Date Seen by a Provider: Oct 02, 2021 Time Seen by a Provider: 10:10 Subjective/Events-last exam Patient seen with Dr. Rodriguez. Patient reports doing much better. Still having some epigastric tenderness, but is much improved. Denies any N/V. Tolerating diet. Objective Exam Vital Signs Date Time Temp Pulse Resp B/P (MAP) Pulse Ox O2 Delivery O2 Flow Rate FiO2 10/02/21 11:36 96 Room Air 10/02/21 11:15 35.6 83 20 133/90 (104) 98 Room Air 10/02/21 07:22 35.0 69 20 111/78 (89) 98 Room Air 10/02/21 05:01 36.8 10/02/21 03:56 36.8 85 20 119/68 (85) 100 Room Air 10/01/21 23:09 37.0 80 18 109/75 (86) 100 Room Air 10/01/21 20:00 Room Air 10/01/21 19:12 96 Room Air 10/01/21 19:00 37.0 83 20 133/79 (97) 99 Room Air 10/01/21 16:35 36.9 99 20 140/76 (97) 96 Room Air I & O 10/02/21 07:00 Intake Total 1962 ml Output Total 2200 ml Balance -238 ml Capillary Refill : Less Than 3 Seconds General Appearance: No Apparent Distress, WD/WN Neck: Normal Inspection, Supple Respiratory: No Accessory Muscle Use, No Respiratory Distress Cardiovascular: Regular Rate, Rhythm, No Edema Gastrointestinal: normal bowel sounds, soft, tenderness (Epigastric) Extremity: Normal Inspection, Normal Range of Motion Neurologic/Psychiatric: Alert, Oriented x3 Skin: Normal Color, Warm/Dry Results Lab Laboratory Tests 10/02/21 06:12: White Blood Count 3.9L, Red Blood Count 3.44L, Hemoglobin 10.9L, Hematocrit 32L, Mean Corpuscular Volume 94, Mean Corpuscular Hemoglobin 32, Mean Corpuscular Hemoglobin Concent 34, Red Cell Distribution Width 11.6, Platelet Count 150, Mean Platelet Volume 11.4, Immature Granulocyte % (Auto) 0, Neutrophils (%) (Auto) 55, Lymphocytes (%) (Auto) 26, Monocytes (%) (Auto) 9, Eosinophils (%) (Auto) 9, Basophils (%) (Auto) 1, Neutrophils # (Auto) 2.2, Lymphocytes # (Auto) 1.0, Monocytes # (Auto) 0.4, Eosinophils # (Auto) 0.4H, Basophils # (Auto) 0.0, Immature Granulocyte # (Auto) 0.0, Sodium Level 135, Potassium Level 3.9, Chloride Level 101, Carbon Dioxide Level 27, Anion Gap 7, Blood Urea Nitrogen 5L , Creatinine 0.72, Estimat Glomerular Filtration Rate 102, BUN/Creatinine Ratio 7, Glucose Level 85, Calcium Level 8.4L, Corrected Calcium 9.3, Magnesium Level 1.9, Total Bilirubin 0.8, Aspartate Amino Transf (AST/SGOT) 128H, Alanine Aminotransferase (ALT/SGPT) 83H, Alkaline Phosphatase 151H, Total Protein 5.8L, Albumin 2.9L Microbiology 09/28/21 MRSA Screen - Final, Complete MRSA not isolated Assessment/Plan Assessment/Plan Assess & Plan/Chief Complaint a 50 year old with Acute alcoholic pancreatitis Gallbladder US -showed no visualized stone -mild elevated echotexture of liver suggestive of fatty infiltration -no appreciable free fluid or demonstrated fluid collection, although acoustical windows were limited and patient cooperability was minimal Diet as tolerates Continue IVF's Continue antiemetics Continue pain meds Continue CIWA Monitor labs and electrolytes JARED FERNANDEZ APRN Oct 02, 2021 12:46
--- NOTE | 2021-10-02 14:04 | Physical Therapy Daily Note ---
PT Daily Note-Current Subjective Patient in bed pre tx, agrees to PT, has no complaints of pain at rest, patient states she has been performing LE exercises in bed on her own. Appearance Patient in bed post tx with nurse call, phone, tray, all needs met, bed alarm on, telesitter in room. Mental Status Patient Orientation: Person, Confused Transfers SCALE: Activities may be completed with or without assistive devices. 2-Ruepsdtylh-htfasjp completes the activity by him/herself with no assistance from a helper. 5-Set-up or Clean-up Assistance-helper sets up or cleans up; patient completes activity. [place] assists only prior to or following the activity. 4-Supervision or Touching Assistance-helper provides verbal cues and/or touching/steadying and/or contact guard assistance as patient completes activity. Assistance may be provided throughout the activity or intermittently. 3-Partial/Moderate Assistance-helper does LESS THAN HALF the effort. [place] lifts, holds or supports trunk or limbs, but provides less than half the effort. 2-Substantial/Maximal Assistance-helper does MORE THAN HALF the effort. [place] lifts or holds trunk or limbs and provides more than half the effort. 1-Auvasdtcs-jhzuef does ALL the effort. Patient does none of the effort to complete the activity. Or, the assistance of 2 or more helpers is required for the patient to complete the activity. If activity was not attempted, code reason: 7-Patient Refused. 9-Not Applicable-not attempted and the patient did not perform the activity be fore the current illness, exacerbation or injury. 10-Not Attempted due to Environmental Limitations-(lack of equipment, weather restraints, etc.). 88-Not Attempted due to Medical Conditions or Safety Concerns. Roll Left & Right (QC): 6 Sit to Lying (QC): 6 Lying to Sitting/Side of Bed(Q: 6 Sit to Stand (QC): 4 Chair/Zkj-ub-Cifsc Xfer(QC): 4 SBA for sit to stand and transfers. Gait Training Distance: 300' Walk 10 feet (QC): 4 Walk 50 ft with 2 Turns(QC): 4 Walk 150 ft (QC): 4 Gait Persons Needed: 1 Gait Assistive Device: FWW SBA, steadier ambulation, less shakiness. After getting back to her room patient needed to use the restroom and does so without assist. Treatments bed mobility and transfers, toileting, ambulation Assessment Current Status: Fair Progress much better ambulation and balance PT [facility] Goals Fci Goals PT [facility] Goals Time Frame: Oct 07, 2021 Roll Left & Right (QC): 6 Sit to Lying (QC): 6 Lying-Sitting on Side/Bed(QC): 6 Sit to Stand (QC): 5 Chair/Ktb-bj-Rrxdm Xfer(QC): 5 Walk 10 feet (QC): 5 Walk 50ft with 2 Turns (QC): 5 PT Plan Problem List Problem List: Activity Tolerance, Functional Strength, Safety, Balance, Gait, Transfer Treatment/Plan Treatment Plan: Continue Plan of Care Treatment Plan: Education, Functional Activity Jose Martin, Functional Strength, Gait, Safety, Therapeutic Exercise, Transfers Treatment Duration: Oct 07, 2021 Frequency: 6 times per week Estimated Hrs Per Day: .25 hour per day Patient and/or Family Agrees t: Yes Safety Risks/Education Patient Education: Gait Training, Transfer Techniques, Correct Positioning, Safety Issues Teaching Recipient: Patient Teaching Methods: Demonstration, Discussion Response to Teaching: Reinforcement Needed Time/GCodes Time In: 1340 Time Out: 1350 Total Billed Treatment Time: 10 Total Billed Treatment 1 visit FA ISIDORO HUTCHINSON PT Oct 02, 2021 14:04
[2021-10-02 16:00] VITALS: BP 120/70
[2021-10-02 19:32] VITALS: BP 121/72
[2021-10-02] MEDS: ENOXAPARIN 40 MG/0.4 ML (LOVENOX) SYR SC SCH (20:01)
[2021-10-02] MEDS: MELATONIN 3 MG TABLET PO PRN (21:57)
[2021-10-03 00:58] VITALS: BP 121/81
[2021-10-03] MEDS: THIAMINE 100 MG (VITAMIN B-1) TAB PO SCH (05:27)
[2021-10-03] MEDS: MULTIVIT W/MINERALS TAB (THERAGRAN M) PO SCH (05:27)
[2021-10-03] MEDS: LEVOTHYROXINE 50 MCG (LEVOTHROID) TAB PO SCH (05:27)
[2021-10-03] MEDS: ONDANSETRON 4 MG (ZOFRAN) ORAL DISSOLVE TAB PO PRN (06:47)
[2021-10-03 06:48] LABS: BASOPHILS % (AUTO) 1 % (0-10); EOSINOPHILS # (AUTO) 0.4 10^3/uL (0.0-0.3); EOSINOPHILS % (AUTO) 9 % (0-10); HEMATOCRIT 35 % (35-52); HEMOGLOBIN 11.7 g/dL (11.5-16.0); LYMPHOCYTES # (AUTO) 1.1 10^3/uL (1.0-4.0); LYMPHOCYTES % (AUTO) 27 % (12-44); MEAN CORPUSCULAR HEMOGLOBIN 32 pg (25-34); MEAN CORPUSCULAR HGB CONC 34 g/dL (32-36); MEAN CORPUSCULAR VOLUME 94 fL (80-99); MONOCYTES # (AUTO) 0.4 10^3/uL (0.0-1.0); MONOCYTES % (AUTO) 8 % (0-12); NEUTROPHILS # (AUTO) 2.4 10^3/uL (1.8-7.8); NEUTROPHILS % (AUTO) 55 % (42-75); PLATELET COUNT 197 10^3/uL (130-400); WHITE BLOOD COUNT 4.3 10^3/uL (4.3-11.0)
[2021-10-03 06:57] LABS: ALBUMIN 3.1 GM/DL (3.2-4.5); POTASSIUM 4.2 MMOL/L (3.6-5.0)
[2021-10-03 06:58] LABS: CALCIUM 8.9 MG/DL (8.5-10.1)
[2021-10-03 06:59] LABS: TOTAL PROTEIN 6.4 GM/DL (6.4-8.2)
[2021-10-03 07:01] LABS: BILIRUBIN,TOTAL 0.5 MG/DL (0.1-1.0)
[2021-10-03 07:03] LABS: CREATININE SERUM 0.74 MG/DL (0.60-1.30)
[2021-10-03 07:05] LABS: MAGNESIUM 2.1 MG/DL (1.6-2.4)
[2021-10-03 07:40] VITALS: BP 107/69
[2021-10-03] MEDS: DOCUSATE SODIUM 100 MG (COLACE) CAP PO SCH ×2 (08:35→20:10)
[2021-10-03] MEDS: PANTOPRAZOLE 40 MG (PROTONIX) TAB PO SCH (08:35)
[2021-10-03] MEDS: LORazepam 0.5 MG (ATIVAN) TABLET PO PRN ×2 (08:35→22:34)
[2021-10-03] MEDS: FOLIC ACID 1 MG TAB PO SCH (08:35)
[2021-10-03] MEDS: ACETAMINOPHEN 325 MG TABLET PO PRN (08:36)
[2021-10-03] MEDS: diphenhydrAMINE 25 MG TAB (BENADRYL) PO PRN (11:21)
[2021-10-03] MEDS ORDERED: MAGNESIUM CITRATE 300 ML BTL PO ONE (12:15)
[2021-10-03] MEDS: SENNA W/DOCUSATE (SENOKOT S) TABLET PO SCH ×2 (12:58→20:10)
[2021-10-03] MEDS: LACTULOSE SYRUP 10GM/15ML (ENULOSE) 30ML UDC PO SCH ×2 (12:58→20:10)
[2021-10-03 16:00] VITALS: BP 103/64
[2021-10-03] MEDS: ENOXAPARIN 40 MG/0.4 ML (LOVENOX) SYR SC SCH (20:10)
[2021-10-03] MEDS: MELATONIN 3 MG TABLET PO PRN (22:35)
[2021-10-04 00:10] VITALS: BP 103/67
--- NOTE | 2021-10-04 05:44 | Progress Note - Surgery ---
TERESA LOUIS 10/04/21 0544: Subjective Date Seen by a Provider: Oct 04, 2021 Time Seen by a Provider: 05:25 Subjective/Events-last exam Pt still feeling weak. She is tired this a.m., as she was awake with bm's overnight. Was given senna and lactulose to help w/ constipation. Reports her stomach feels better now, but still has some nausea. 8/10 lower back pain. WALLS this morning. Tolerating diet well. Denies CP at this time. Review of Systems General: Night Sweats, Fatigue HEENT: Head Aches Cardiovascular: No: Chest Pain, Palpitations Gastrointestinal: Nausea, Abdominal Pain; No: Vomiting Genitourinary: No Dysuria, No Frequency Musculoskeletal: back pain; No: foot pain Neurological: No: Weakness, Change in speech Focused Exam Respiratory: Lungs Clear, Normal Breath Sounds, No Respiratory Distress Cardiovascular: Regular Rate, Rhythm, No Murmur Peripheral Pulses: 2+ Dorsalis Pedis (R), 2+ Left Dors-Pedis (L), 2+ Radial Pulses (R), 2+ Radial Pulses (L) Skin: normal color, warm/dry, tattoos/piercings Objective Exam Vital Signs Date Time Temp Pulse Resp B/P (MAP) Pulse Ox O2 Delivery O2 Flow Rate FiO2 10/04/21 00:10 36.8 68 20 103/67 (79) 100 Room Air 10/03/21 20:10 Room Air 10/03/21 16:00 36.6 82 18 103/64 (77) 98 Room Air 10/03/21 08:21 Room Air 10/03/21 08:00 Room Air 10/03/21 07:40 36.2 73 18 107/69 (82) 99 Room Air I & O 10/04/21 07:00 Intake Total 2200 ml Balance 2200 ml Capillary Refill : Less Than 3 Seconds General Appearance: No Apparent Distress, WD/WN HEENT: PERRL/EOMI Neck: Normal Inspection Respiratory: Lungs Clear, Normal Breath Sounds, No Respiratory Distress Cardiovascular: Regular Rate, Rhythm, No Murmur Peripheral Pulses: 2+ Dorsalis Pedis (R), 2+ Left Dors-Pedis (L), 2+ Radial Pulses (R), 2+ Radial Pulses (L) Gastrointestinal: soft, tenderness (Epigastric) Extremity: Normal Inspection, No Pedal Edema Neurologic/Psychiatric: Alert, Normal Mood/Affect Skin: Normal Color, Warm/Dry Lymphatic: No Adenopathy Results Lab Laboratory Tests 10/03/21 06:38: White Blood Count 4.3, Red Blood Count 3.69L, Hemoglobin 11.7, Hematocrit 35, Mean Corpuscular Volume 94, Mean Corpuscular Hemoglobin 32, Mean Corpuscular He moglobin Concent 34, Red Cell Distribution Width 11.8, Platelet Count 197, Mean Platelet Volume 11.0, Immature Granulocyte % (Auto) 1, Neutrophils (%) (Auto) 55, Lymphocytes (%) (Auto) 27, Monocytes (%) (Auto) 8, Eosinophils (%) (Auto) 9, Basophils (%) (Auto) 1, Neutrophils # (Auto) 2.4, Lymphocytes # (Auto) 1.1, Monocytes # (Auto) 0.4, Eosinophils # (Auto) 0.4H, Basophils # (Auto) 0.0, Immature Granulocyte # (Auto) 0.0, Sodium Level 134L, Potassium Level 4.2, Chlor shar Level 98, Carbon Dioxide Level 27, Anion Gap 9, Blood Urea Nitrogen 7, Creatinine 0.74, Estimat Glomerular Filtration Rate 99, BUN/Creatinine Ratio 9, Glucose Level 95, Calcium Level 8.9, Corrected Calcium 9.6, Magnesium Level 2.1, Total Bilirubin 0.5, Aspartate Amino Transf (AST/SGOT) 89H, Alanine Aminotransferase (ALT/SGPT) 75H, Alkaline Phosphatase 157H, Total Protein 6.4, Albumin 3.1L, Lipase 972H Microbiology 09/28/21 MRSA Screen - Final, Complete MRSA not isolated Assessment/Plan Assessment/Plan Assessment/Plan a 50 year old with Acute alcoholic pancreatitis Gallbladder US -showed no visualized stone -mild elevated echotexture of liver suggestive of fatty infiltration -no appreciable free fluid or demonstrated fluid collection, although acoustical windows were limited and patient cooperability was minimal Diet as tolerates Continue IVF's Continue antiemetics Continue pain meds Continue CIWA Monitor labs and electrolytes NHI MOROCHO DO 10/04/21 0921: Subjective Subjective/Events-last exam Feeling okay. Tolerating diet. Still with some pain on and off. No new complaints, denies n/v fever sweats chills shortness of breath or chest pain. Objective Exam General Appearance: No Apparent Distress, WD/WN HEENT: PERRL/EOMI, Normal ENT Inspection Neck: Normal Inspection Respiratory: Chest Non Tender, No Accessory Muscle Use, No Respiratory Distress Cardiovascular: Regular Rate, Rhythm, No JVD Gastrointestinal: soft, tenderness (Epigastric) Extremity: Normal Inspection, Non Tender Neurologic/Psychiatric: Alert, Normal Mood/Affect Skin: Normal Color, Warm/Dry Lymphatic: No Adenopathy Assessment/Plan Assessment/Plan Assessment/Plan Acute alcoholic pancreatitis Gallbladder US -showed no visualized stone -mild elevated echotexture of liver suggestive of fatty infiltration -no appreciable free fluid or demonstrated fluid collection, although acoustical windows were limited and patient cooperability was minimal Diet as tolerates Continue IVF's Continue antiemetics Continue pain meds Continue CIWA Supervisory-Addendum Brief Verification & Attestation Participated in pt care: history, MDM, physical Personally performed: exam, history, MDM, supervision of care Care discussed with: Medical Student Procedures: n/a Results interpretation: Verified all documentation Verification and Attestation of Medical Student E/M Service A medical student performed and documented this service in my presence. I reviewed and verified all information documented by the medical student and made modifications to such information, when appropriate. I personally performed the physical exam and medical decision making. Nhi Morocho, Oct 04, 2021,09:21 TERESA LOUIS Oct 04, 2021 05:44 NHI MOROCHO DO Oct 04, 2021 09:21
[2021-10-04] MEDS: LEVOTHYROXINE 50 MCG (LEVOTHROID) TAB PO SCH (05:45)
[2021-10-04] MEDS: MULTIVIT W/MINERALS TAB (THERAGRAN M) PO SCH (05:45)
[2021-10-04] MEDS: THIAMINE 100 MG (VITAMIN B-1) TAB PO SCH (05:45)
[2021-10-04] MEDS: diphenhydrAMINE 25 MG TAB (BENADRYL) PO PRN (05:45)
[2021-10-04 06:22] LABS: BASOPHILS % (AUTO) 1 % (0-10); EOSINOPHILS # (AUTO) 0.3 10^3/uL (0.0-0.3); EOSINOPHILS % (AUTO) 6 % (0-10); HEMATOCRIT 36 % (35-52); HEMOGLOBIN 12.1 g/dL (11.5-16.0); LYMPHOCYTES # (AUTO) 1.3 10^3/uL (1.0-4.0); LYMPHOCYTES % (AUTO) 28 % (12-44); MEAN CORPUSCULAR HEMOGLOBIN 32 pg (25-34); MEAN CORPUSCULAR HGB CONC 33 g/dL (32-36); MEAN CORPUSCULAR VOLUME 96 fL (80-99); MEAN PLATELET VOLUME 10.6 fL (9.0-12.2); MONOCYTES # (AUTO) 0.5 10^3/uL (0.0-1.0); MONOCYTES % (AUTO) 10 % (0-12); NEUTROPHILS # (AUTO) 2.5 10^3/uL (1.8-7.8); NEUTROPHILS % (AUTO) 54 % (42-75); PLATELET COUNT 248 10^3/uL (130-400); WHITE BLOOD COUNT 4.6 10^3/uL (4.3-11.0)
[2021-10-04 06:33] LABS: ALBUMIN 3.2 GM/DL (3.2-4.5)
[2021-10-04 06:34] LABS: POTASSIUM 3.9 MMOL/L (3.6-5.0)
[2021-10-04 06:35] LABS: CALCIUM 8.6 MG/DL (8.5-10.1)
[2021-10-04 06:36] LABS: TOTAL PROTEIN 6.4 GM/DL (6.4-8.2)
[2021-10-04 06:38] LABS: BILIRUBIN,TOTAL 0.5 MG/DL (0.1-1.0)
[2021-10-04 06:40] LABS: CREATININE SERUM 0.75 MG/DL (0.60-1.30)
[2021-10-04 06:42] LABS: MAGNESIUM 2.3 MG/DL (1.6-2.4)
[2021-10-04] MEDS: DOCUSATE SODIUM 100 MG (COLACE) CAP PO SCH (07:28)
[2021-10-04] MEDS: SENNA W/DOCUSATE (SENOKOT S) TABLET PO SCH (07:29)
[2021-10-04] MEDS: LACTULOSE SYRUP 10GM/15ML (ENULOSE) 30ML UDC PO SCH (07:29)
[2021-10-04] MEDS: PANTOPRAZOLE 40 MG (PROTONIX) TAB PO SCH (07:31)
[2021-10-04] MEDS: FOLIC ACID 1 MG TAB PO SCH (07:31)
[2021-10-04] MEDS: ONDANSETRON 4 MG (ZOFRAN) ORAL DISSOLVE TAB PO PRN (07:33)
[2021-10-04 08:00] VITALS: BP 95/70
[2021-10-04] MEDS ORDERED: FOLI1TAB33 PO (09:40)
[2021-10-04] MEDS ORDERED: MULT-1137 PO (09:40)
[2021-10-04] MEDS ORDERED: THIA100T80 PO (09:40)
--- NOTE | 2021-10-04 09:40 | Discharge Summary ---
Discharge Summary Hospital Course Was the Problem List Reviewed?: Yes Problems/Dx: (1) Hypothyroidism (2) ALCOHOL ABUSE WITH WITHDRAWAL WITH PERCEPTUAL DISTURBANCE (3) Hypokalemia (4) Acute alcoholic pancreatitis Qualifiers: Qualified Codes: K85.20 - Alcohol induced acute pancreatitis without necrosis or infection (5) Alcohol intoxication Status: Acute Qualifiers: Qualified Codes: F10.920 - Alcohol use, unspecified with intoxication, uncomplicated (6) Anxiety Status: Acute (7) Nausea Status: Acute (8) Depression Status: Acute Hospital Course Date of Admission: Sep 28, 2021 at 19:41 Admission Diagnosis : Family Physician/Provider: Tony/[facility] Date of Discharge: 10/04/21 Discharge Diagnosis: Alcohol withdrawal, alcoholic pancreatitis, anxiety, GERD, illicit drug use Hospital Course: Hospital course: Chuyita is a 50yo F with a past medical history of anxiety, depression, PTSD, hypothyroidism, and alcohol abuse. She presented to the [facility] ER on 09/28/21 with a chief complaint of abdominal pain the past 5 days. She was vomiting, had generalized weakness, and epigastric tenderness. She had been seen a few days earlier in the ER for similar symptoms. Patient reports drinking 16oz of vodka a day. Urine drug screen positive for methamphetamine, oxycodone, and cannabinoids. AST elevated at 149, lipase elevated at 1370, serum alcohol elevated at 346, CT showed fluid and inflammatory stranding of pancreas. Patient was admitted to the ICU for acute alcoholic pancreatitis. Patient started having hallucinations and delerium tremons the day after being admitted. Patient was disoriented and unable to answer questions fully during interviews. Ativan was started to help with the alcohol withdrawal symptoms. CT did not find evidence of necrosis or organ failure which defines the pancreatitis as mild. Gallbladder US showed no visualized stone and mild elevated echotexture of liver suggestive of fatty infiltration. Patient improved and became fully oriented 10/01/21. She was no longer having symptoms of alcohol withdrawal. On 10/02/21 she was eating more and was ambulating on her own. Lipase was at 668 the day of admission. Surgery consulted with patient and was okay with her being discharged. Patient met with social worker masters and was given resources to help her manage her alcohol abuse. Was discharged today with folic acid, thiamine, zofran, levothyroxin, metoclopramide, pantoprazole, and hydroxyzine. MAN [facility]ILTON Labs and Pending Lab Test: Laboratory Tests 10/04/21 05:53: White Blood Count 4.6, Red Blood Count 3.77L, Hemoglobin 12.1, Hematocrit 36, Mean Corpuscular Volume 96, Mean Corpuscular Hemoglobin 32, Mean Corpuscular Hemoglobin Concent 33, Red Cell Distribution Width 12.0, Platelet Count 248, Mean Platelet Volume 10.6, Immature Granulocyte % (Auto) 1, Neutrophils (%) (Auto) 54, Lymphocytes (%) (Auto) 28, Monocytes (%) (Auto) 10, Eosinophils (%) (Auto) 6, Basophils (%) (Auto) 1, Neutrophils # (Auto) 2.5, Lymphocytes # (Auto) 1.3, Monocytes # (Auto) 0.5, Eosinophils # (Auto) 0.3, Basophils # (Auto) 0.0, Immature Granulocyte # (Auto) 0.1, Sodium Level 134L, Potassium Level 3.9, Chloride Level 99, Carbon Dioxide Level 26, Anion Gap 9, Blood Urea Nitrogen 5L, Creatinine 0.75, Estimat Glomerular Filtration Rate 97, BUN/Creatinine Ratio 7, Glucose Level 104, Calcium Level 8.6, Corrected Calcium 9.2, Magnesium Level 2.3, Total Bilirubin 0.5, Aspartate Amino Transf (AST/SGOT) 61H, Alanine Aminotransferase (ALT/SGPT) 63H, Alkaline Phosphatase 164H, Total Protein 6.4, Albumin 3.2, Lipase 668H Microbiology 09/28/21 MRSA Screen - Final, Complete MRSA not isolated Home Meds Active Reported Pantoprazole Sodium 40 Mg Tablet.dr 40 Mg PO DAILY Metoclopramide HCl 10 Mg Tablet 10 Mg PO Q6H PRN Levothyroxine Sodium 50 Mcg Tablet 50 Mcg PO DAILY Hydroxyzine HCl 25 Mg Tablet 25 Mg PO Q6H PRN Assessment/Pt Instructions PCP in 1 week Discharge Planning: <30 minutes discharge planning Discharge Physical Examination Vital Signs Vital Signs Date Time Temp Pulse Resp B/P (MAP) Pulse Ox O2 Delivery O2 Flow Rate FiO2 10/04/21 08:00 35.9 75 16 95/70 (78) 99 Room Air 09/28/21 20:51 21 General Appearance: No Apparent Distress, WD/WN, Chronically ill Allergies: Coded Allergies: No Known Drug Allergies (Unverified , 05/29/21) Discharge Summary Date of Admission Sep 28, 2021 at 19:41 Date of Discharge Discharge Date: Oct 04, 2021 Admission Diagnosis Assessment: Acute alcoholic pancreatitis Alcohol withdrawal Plan: Supportive care IV fluid ICU Discharge Diagnosis Assessment: Acute alcoholic pancreatitis Alcohol abuse with withdrawal with perceptual disturbance Nausea Alcohol intoxication Hypolalemia Depression Anxiety Hypothyroidism Ulcer prophylaxis DVT prophylaxis Plan: Move to fourth floor Supportive care 10/01/2021: Hep-Lock IV fluid DC catheter 10/02/2021: Supportive care Monitor closely (1) Hypothyroidism (2) ALCOHOL ABUSE WITH WITHDRAWAL WITH PERCEPTUAL DISTURBANCE (3) Hypokalemia (4) Acute alcoholic pancreatitis Qualifiers: Qualified Codes: K85.20 - Alcohol induced acute pancreatitis without necrosis or infection (5) Alcohol intoxication Status: Acute Qualifiers: Qualified Codes: F10.920 - Alcohol use, unspecified with intoxication, uncomplicated (6) Anxiety Status: Acute (7) Nausea Status: Acute (8) Depression Status: Acute ADI LOMELI DO Oct 04, 2021 09:40
[2021-10-04] MEDS ORDERED: HYDR-700 PO (09:59)
[2021-10-04] MEDS ORDERED: ONDA4TAB11 PO (09:59)
--- NOTE | 2021-10-04 09:59 | Discharge Summary ---
Discharge Summary Hospital Course Was the Problem List Reviewed?: Yes Problems/Dx: (1) Hypothyroidism (2) ALCOHOL ABUSE WITH WITHDRAWAL WITH PERCEPTUAL DISTURBANCE (3) Hypokalemia (4) Acute alcoholic pancreatitis Qualifiers: Qualified Codes: K85.20 - Alcohol induced acute pancreatitis without necrosis or infection (5) Alcohol intoxication Status: Acute Qualifiers: Qualified Codes: F10.920 - Alcohol use, unspecified with intoxication, uncomplicated (6) Anxiety Status: Acute (7) Nausea Status: Acute (8) Depression Status: Acute Hospital Course Date of Admission: Sep 28, 2021 at 19:41 Admission Diagnosis : Family Physician/Provider: Lanse/[facility] Date of Discharge: 10/04/21 Discharge Diagnosis: Alcoholic pancreatitis, alcohol withdrawal, illicit drug use Hospital Course: Hospital course: Chuyita is a 50yo F with a past medical history of anxiety, depression, PTSD, hypothyroidism, and alcohol abuse. She presented to the [facility] ER on 09/28/21 with a chief complaint of abdominal pain the past 5 days. She was vomiting, had generalized weakness, and epigastric tenderness. She had been seen a few days earlier in the ER for similar symptoms. Patient reports drinking 16oz of vodka a day. Urine drug screen positive for methamphetamine, oxycodone, and cannabinoids. AST elevated at 149, lipase elevated at 1370, serum alcohol elevated at 346, CT showed fluid and inflammatory stranding of pancreas. Patient was admitted to the ICU for acute alcoholic pancreatitis. Patient started having hallucinations and delerium tremons the day after being admitted. Patient was disoriented and unable to answer questions fully during interviews. Ativan was started to help with the alcohol withdrawal symptoms. CT did not find evidence of necrosis or organ failure which defines the pancreatitis as mild. Gallbladder US showed no visualized stone and mild elevated echotexture of liver suggestive of fatty infiltration. Patient improved and became fully oriented 10/01/21. She was no longer having symptoms of alcohol withdrawal. On 10/02/21 she was eating more and was ambulating on her own. Lipase was at 668 the day of admission. Surgery consulted with patient and was okay with her being discharged. Patient met with clinical social work aide and was given resources to help her manage her alcohol abuse. Was discharged today with folic acid, thiamine, zofran, levothyroxin, metoclopramide, pantoprazole, and hydroxyzine. MAN [facility]ILTON Labs and Pending Lab Test: Laboratory Tests 10/04/21 05:53: White Blood Count 4.6, Red Blood Count 3.77L, Hemoglobin 12.1, Hematocrit 36, Mean Corpuscular Volume 96, Mean Corpuscular Hemoglobin 32, Mean Corpuscular Hemoglobin Concent 33, Red Cell Distribution Width 12.0, Platelet Count 248, Mean Platelet Volume 10.6, Immature Granulocyte % (Auto) 1, Neutrophils (%) (Auto) 54, Lymphocytes (%) (Auto) 28, Monocytes (%) (Auto) 10, Eosinophils (%) (Auto) 6, Basophils (%) (Auto) 1, Neutrophils # (Auto) 2.5, Lymphocytes # (Auto) 1.3, Monocytes # (Auto) 0.5, Eosinophils # (Auto) 0.3, Basophils # (Auto) 0.0, Immature Granulocyte # (Auto) 0.1, Sodium Level 134L, Potassium Level 3.9, Chloride Level 99, Carbon Dioxide Level 26, Anion Gap 9, Blood Urea Nitrogen 5L, Creatinine 0.75, Estimat Glomerular Filtration Rate 97, BUN/Creatinine Ratio 7, Glucose Level 104, Calcium Level 8.6, Corrected Calcium 9.2, Magnesium Level 2.3, Total Bilirubin 0.5, Aspartate Amino Transf (AST/SGOT) 61H, Alanine Aminotransferase (ALT/SGPT) 63H, Alkaline Phosphatase 164H, Total Protein 6.4, Albumin 3.2, Lipase 668H Microbiology 09/28/21 MRSA Screen - Final, Complete MRSA not isolated Home Meds Active Ondansetron Odt (Ondansetron) 4 Mg Tab.rapdis 4 Mg PO Q6H PRN Hydroxyzine HCl 25 Mg Tablet 25 Mg PO Q6H PRN Tab-A-Antonella Multivit with Iron (Multivitamin/Iron/Folic Acid) 1 Each Tablet 1 Ea PO DAILY@0700 Vitamin B-1 (Thiamine HCl) 100 Mg Tablet 100 Mg PO DAILY@0700 Folic Acid 1 Mg Tablet 1 Mg PO DAILY Reported Pantoprazole Sodium 40 Mg Tablet.dr 40 Mg PO DAILY Metoclopramide HCl 10 Mg Tablet 10 Mg PO Q6H PRN Levothyroxine Sodium 50 Mcg Tablet 50 Mcg PO DAILY Assessment/Pt Instructions PCP in 1 week Discharge Planning: <30 minutes discharge planning Discharge Instructions Discharge Diet: No Restrictions Activity as Tolerated: Yes Discharge Physical Examination Vital Signs Vital Signs Date Time Temp Pulse Resp B/P (MAP) Pulse Ox O2 Delivery O2 Flow Rate FiO2 10/04/21 08:00 35.9 75 16 95/70 (78) 99 Room Air 09/28/21 20:51 21 General Appearance: No Apparent Distress, WD/WN Allergies: Coded Allergies: No Known Drug Allergies (Unverified , 05/29/21) Discharge Summary Date of Admission Sep 28, 2021 at 19:41 Date of Discharge Discharge Date: Oct 04, 2021 Admission Diagnosis Assessment: Acute alcoholic pancreatitis Alcohol withdrawal Plan: Supportive care IV fluid ICU Discharge Diagnosis Assessment: Acute alcoholic pancreatitis Alcohol abuse with withdrawal with perceptual disturbance Nausea Alcohol intoxication Hypolalemia Depression Anxiety Hypothyroidism Ulcer prophylaxis DVT prophylaxis Plan: Move to fourth floor Supportive care 10/01/2021: Hep-Lock IV fluid DC catheter 10/02/2021: Supportive care Monitor closely (1) Hypothyroidism (2) ALCOHOL ABUSE WITH WITHDRAWAL WITH PERCEPTUAL DISTURBANCE (3) Hypokalemia (4) Acute alcoholic pancreatitis Qualifiers: Qualified Codes: K85.20 - Alcohol induced acute pancreatitis without necrosis or infection (5) Alcohol intoxication Status: Acute Qualifiers: Qualified Codes: F10.920 - Alcohol use, unspecified with intoxication, uncomplicated (6) Anxiety Status: Acute (7) Nausea Status: Acute (8) Depression Status: Acute ADI LOMELI DO Oct 04, 2021 09:59
[2021-10-04] MEDS ORDERED: MTC10T PO (10:00)
[2021-10-04] MEDS ORDERED: PANT40TA52 PO (10:00)
[2021-10-04 12:00] VITALS: BP 107/72
--- NOTE | 2021-10-04 12:44 | Progress Note ---
MAN HILTON 10/04/21 1244: Progress Note Hospital course: Chuyita is a 50yo F with a past medical history of anxiety, depression, PTSD, hypothyroidism, and alcohol abuse. She presented to the [facility] ER on 09/28/21 with a chief complaint of abdominal pain the past 5 days. She was vomiting, had generalized weakness, and epigastric tenderness. She had been seen a few days earlier in the ER for similar symptoms. Patient reports drinking 16oz of vodka a day. Urine drug screen positive for methamphetamine, oxycodone, and cannabinoids. AST elevated at 149, lipase elevated at 1370, serum alcohol elevated at 346, CT showed fluid and inflammatory stranding of pancreas. Patient was admitted to the ICU for acute alcoholic pancreatitis. Patient started having hallucinations and delerium tremons the day after being admitted. Patient was disoriented and unable to answer questions fully during interviews. Ativan was started to help with the alcohol withdrawal symptoms. CT did not find evidence of necrosis or organ failure which defines the pancreatitis as mild. Gallbladder US showed no visualized stone and mild elevated echotexture of liver suggestive of fatty infiltration. Patient improved and became fully oriented 10/01/21. She was no longer having symptoms of alcohol withdrawal. On 10/02/21 she was eating more and was ambulating on her own. Lipase was at 668 the day of admission. Surgery consulted with patient and was okay with her being discharged. Patient met with director social service and was given resources to help her manage her alcohol abuse. Was discharged today with folic acid, thiamine, zofran, levothyroxin, metoclopramide, pantoprazole, and hydroxyzine. EMILY LOMELI DO 10/05/21 0534: Supervisory-Addendum Brief Verification & Attestation Participated in pt care: history, MDM, physical Personally performed: exam, history, MDM, supervision of care Care discussed with: Medical Student Procedures: n/a Results interpretation: Verified all documentation Verification and Attestation of Medical Student E/M Service A medical student performed and documented this service in my presence. I reviewed and verified all information documented by the medical student and made modifications to such information, when appropriate. I personally performed the physical exam and medical decision making. Emily Lomeli Oct 05, 2021,05:34 MAN [facility]ILTON Oct 04, 2021 12:44 EMILY LOMELIb 22, 2022 05:34
== END 2021-10-04 14:48 | disposition home or self-care (01) | DRG 439 ==
LOC: EDUNIT# 16:21 → ER FS 16:22 → ICU 19:41 → OBSVTOIN 19:41 → 4TH 09-30 16:11
PROVIDERS: ADMIT Internal Medicine; ATTEND Internal Medicine
DX: K85.20 Alcohol induced acute pancreatitis without necrosis or infection (principal); F10.151 Alcohol abuse with alcohol-induced psychotic disorder with hallucinations; F10.132 Alcohol abuse with withdrawal with perceptual disturbance; F10.120 Alcohol abuse with intoxication, uncomplicated; Y90.8 Blood alcohol level of 240 mg/100 ml or more; F41.9 Anxiety disorder, unspecified; F43.10 Post-traumatic stress disorder, unspecified; E03.9 Hypothyroidism, unspecified; F32.A Depression, unspecified; F12.90 Cannabis use, unspecified, uncomplicated; E87.6 Hypokalemia; R11.0 Nausea; K21.9 Gastro-esophageal reflux disease without esophagitis; D64.9 Anemia, unspecified; M54.50 Low back pain, unspecified
CPT/HCPCS: 36415; 74019; 74177; 76705; 80053; 80306; 80320; 81000; 82150; 82947; 83690; 83735; 84100; 85025; 87081

== ENCOUNTER 2022-01-16 07:30 | Emergency (ER) | payer SELFPAY ==
[~2022-01-16] VITALS: Ht 160 cm; Wt 54.4 kg
[~2022-01-16 07:30] MED LIST changes: +FOLI1TAB33 PO; +LEVO50TA6 PO; +MULT-1137 PO; +ONDA4TAB11 PO; +THIA100T80 PO
--- NOTE | 2022-01-16 07:36 | ED General ---
General Stated Complaint: ABD PAIN History of Present Illness Date Seen by Provider: Jan 16, 2022 Time Seen by Provider: 07:35 Initial Comments 51-year-old female with PMH of alcohol abuse and dependence, is brought in by EMS with complaints of myalgia, abdominal pain, chest pain, subjective fever, diarrhea, which has been going on for the past 2 days. Patient's chest pain is left-sided and also over the sternum and she reports that it hurts more when she touches it. Denies nausea, vomiting, shortness of breath, palpitations, headache, neck stiffness or neck pain, dysuria. Patient has not had anything to eat today. Her last meal was yesterday. Denies past cardiac or neurological issues. Patient initially stated she is not a smoker and does not do any drugs, until labs came back and then pt admitted to having an alcohol issue and drank all night and today morning too. Allergies and Home Medications Allergies Coded Allergies: No Known Drug Allergies (Unverified , 05/29/21) Patient Home Medication List Home Medication List Reviewed: Yes Folic Acid (Folic Acid) 1 Mg Tablet, 1 MG PO DAILY Prescribed by: ADI LOMELI on 10/04/21 0940 Hydroxyzine HCl (Hydroxyzine HCl) 25 Mg Tablet, 25 MG PO Q6H PRN for ANXIETY Prescribed by: ADI LOMELI on 10/04/21 0959 Levothyroxine Sodium (Levothyroxine Sodium) 50 Mcg Tablet, 50 MCG PO DAILY, (Reported) Entered as Reported by: GETACHEW TELLO on 09/29/21 1156 Metoclopramide HCl (Metoclopramide HCl) 10 Mg Tablet, 10 MG PO Q6H PRN for NAUSEA/VOMITING-3RD LINE Prescribed by: ADI LOMELI on 10/04/21 1000 Multivitamin/Iron/Folic Acid (Tab-A-Antonella Multivit with Iron) 1 Each Tablet, 1 EA PO DAILY@0700 Prescribed by: ADI LOMELI on 10/04/21 0940 Ondansetron (Ondansetron Odt) 4 Mg Tab.rapdis, 4 MG PO Q6H PRN for NAUSEA/VOMITI NG-1ST LINE Prescribed by: ADI LOMELI on 10/04/21 0959 Pantoprazole Sodium (Pantoprazole Sodium) 40 Mg Tablet.dr, 40 MG PO DAILY Prescribed by: ADI LOMELI on 10/04/21 1000 Thiamine HCl (Vitamin B-1) 100 Mg Tablet, 100 MG PO DAILY@0700 Prescribed by: ADI LOMELI on 10/04/21 0940 Review of Systems Review of Systems Constitutional: fever, malaise EENTM: no symptoms reported Respiratory: no symptoms reported Cardiovascular: chest pain Gastrointestinal: LUQ, RLQ, abdominal pain, diarrhea Genitourinary: no symptoms reported Musculoskeletal: no symptoms reported Skin: no symptoms reported Psychiatric/Neurological: No Symptoms Reported Hematologic/Lymphatic: No Symptoms Reported Immunological/Allergic: no symptoms reported Past Hehwvgb-Ftxqui-Sfltjz Hx Immunizations Up To Date First/Initial COVID19 Vaccinat: Not currently vaccinated Second COVID19 Vaccination Grzegorz: Not currently vaccinated Third COVID19 Vaccination Date: Not currently vaccinated Past Medical History Surgery/Hospitalization HX: ANXIETY; DEPRESSION,Hypothyroid, Alcohol Abuse Surgeries: No Respiratory: No Cardiac: No Neurological: No Reproductive Disorders: No Genitourinary: No Gastrointestinal: No Musculoskeletal: No Endocrine: No Hypothyroidsim HEENT: No Loss of Vision: Denies Hearing Impairment: Denies Cancer: No Psychosocial: Yes Anxiety, PTSD, Depression Integumentary: No Blood Disorders: No Family Medical History No Pertinent Family Hx Physical Exam Vital Signs Vital Signs - First Documented 01/16/22 07:30 Temp 36.7 Pulse 96 Resp 17 B/P (MAP) 136/86 (103) O2 Delivery Room Air Capillary Refill : Height, Weight, BMI Height: '" Weight: lbs. oz. kg; 28.51 BMI Method: General Appearance: Mild Distress HEENT: PERRL/EOMI Neck: Full Range of Motion, Normal Inspection, Non Tender, Supple Respiratory: Chest Non Tender, Lungs Clear Cardiovascular: Regular Rate, Rhythm, No Edema, Other (Point tenderness to left costochondral junctions of third, fourth, fifth ribs) Gastrointestinal: Normal Bowel Sounds, No Organomegaly, Soft, Tenderness (In the left upper quadrant and right lower quadrant), Other (Bellybutton piercing present with some redness around it) Back: Normal Inspection, No CVA Tenderness, No Vertebral Tenderness Neurologic/Psychiatric: Alert, Oriented x3, No Motor/Sensory Deficits, Normal Mood/Affect Skin: Normal Color Focused Exam Lactate Level 01/16/22 07:30: Lactic Acid Level 1.81 Lactic Acid Level Laboratory Tests Test 01/16/22 07:30 Lactic Acid Level 1.81 MMOL/L (0.50-2.00) Progress/Results/Core Measures Suspected Sepsis SIRS Temperature: Pulse: Respiratory Rate: Laboratory Tests 01/16/22 07:33: White Blood Count 4.5 Blood Pressure / Mean: 01/16/22 07:30: Lactic Acid Level 1.81 Laboratory Tests 01/16/22 07:33: Creatinine 0.74, INR Comment 0.9, Platelet Count 236, Total Bilirubin < 0.2 Results/Orders Lab Results Laboratory Tests Test 01/16/22 07:30 01/16/22 07:33 01/16/22 09:22 Range/Units Lactic Acid Level 1.81 0.50-2.00 MMOL/L White Blood Count 4.5 4.3-11.0 10^3/uL Red Blood Count 4.95 3.80-5.11 10^6/uL Hemoglobin 15.3 11.5-16.0 g/dL Hematocrit 45 35-52 % Mean Corpuscular Volume 91 80-99 fL Mean Corpuscular Hemoglobin 31 25-34 pg Mean Corpuscular Hemoglobin Concent 34 32-36 g/dL Red Cell Distribution Width 16.1 H 10.0-14.5 % Platelet Count 236 130-400 10^3/uL Mean Platelet Volume 9.3 9.0-12.2 fL Immature Granulocyte % (Auto) 0 % Neutrophils (%) (Auto) 51 42-75 % Lymphocytes (%) (Auto) 39 12-44 % Monocytes (%) (Auto) 7 0-12 % Eosinophils (%) (Auto) 1 0-10 % Basophils (%) (Auto) 1 0-10 % Neutrophils # (Auto) 2.3 1.8-7.8 10^3/uL Lymphocytes # (Auto) 1.8 1.0-4.0 10^3/uL Monocytes # (Auto) 0.3 0.0-1.0 10^3/uL Eosinophils # (Auto) 0.1 0.0-0.3 10^3/uL Basophils # (Auto) 0.1 0.0-0.1 10^3/uL Immature Granulocyte # (Auto) 0.0 0.0-0.1 10^3/uL Prothrombin Time 12.5 12.2-14.7 SEC INR Comment 0.9 0.8-1.4 Activated Partial Thromboplast Time 26 24-35 SEC D-Dimer 0.13 0.00-0.49 UG/ML Sodium Level 143 135-145 MMOL/L Potassium Level 3.8 3.6-5.0 MMOL/L Chloride Level 102 98-107 MMOL/L Carbon Dioxide Level 28 21-32 MMOL/L Anion Gap 13 5-14 MMOL/L Blood Urea Nitrogen 24 H 7-18 MG/DL Creatinine 0.74 0.60-1.30 MG/DL Estimat Glomerular Filtration Rate 98 BUN/Creatinine Ratio 32 Glucose Level 92 70-105 MG/DL Calcium Level 9.2 8.5-10.1 MG/DL Corrected Calcium 8.5-10.1 MG/DL Magnesium Level 2.2 1.6-2.4 MG/DL Total Bilirubin < 0.2 0.1-1.0 MG/DL Aspartate Amino Transf (AST/SGOT) 84 H 5-34 U/L Alanine Aminotransferase (ALT/SGPT) 43 0-55 U/L Alkaline Phosphatase 116 40-136 U/L Troponin I < 0.30 <0.30 NG/ML Pro-B-Type Natriuretic Peptide 55.7 <75.0 PG/ML Total Protein 8.1 6.4-8.2 GM/DL Albumin 4.8 H 3.2-4.5 GM/DL Lipase 41 8-78 U/L Serum Alcohol 196 H <10 MG/DL Urine Color YELLOW Urine Clarity CLEAR Urine pH 6.5 5-9 Urine Specific [place] 1.010 L 1.016-1.022 Urine Protein TRACE H NEGATIVE Urine Glucose (UA) NEGATIVE NEGATIVE Urine Ketones NEGATIVE NEGATIVE Urine Nitrite NEGATIVE NEGATIVE Urine Bilirubin NEGATIVE NEGATIVE Urine Urobilinogen 0.2 < = 1.0 MG/DL Urine Leukocyte Esterase NEGATIVE NEGATIVE Urine RBC (Auto) TRACE-I H NEGATIVE Urine RBC 5-10 H /HPF Urine WBC NONE /HPF Urine Squamous Epithelial Cells 25-50 H /HPF Urine Crystals PRESENT H /LPF Urine Triple Phosphate Crystals FEW H /LPF Urine Bacteria MODERATE H /HPF Urine Casts PRESENT /LPF Urine Hyaline Casts 2-5 H /LPF Urine Mucus LARGE H /LPF Urine Culture Indicated NO Urine Test NEGATIVE NEGATIVE Urine Opiates Screen NEGATIVE NEGATIVE Urine Oxycodone Screen NEGATIVE NEGATIVE Urine Methadone Screen NEGATIVE NEGATIVE Urine Propoxyphene Screen NEGATIVE NEGATIVE Urine Barbiturates Screen NEGATIVE NEGATIVE Ur Tricyclic Antidepressants Screen NEGATIVE NEGATIVE Urine Phencyclidine Screen NEGATIVE NEGATIVE Urine Amphetamines Screen POSITIVE H NEGATIVE Urine Methamphetamines Screen NEGATIVE NEGATIVE Urine Benzodiazepines Screen POSITIVE H NEGATIVE Urine Cocaine Screen NEGATIVE NEGATIVE Urine Cannabinoids Screen POSITIVE H NEGATIVE My Orders Orders - LUKE QUIROGA MD Alcohol (01/16/22 07:36) Cbc With Automated Diff (01/16/22 07:36) Comprehensive Metabolic Panel (01/16/22 07:36) Fibrin Degradation Products (01/16/22 07:36) Drug Screen Stat (Urine) (01/16/22 07:36) Hcg,Qualitative Urine (01/16/22 07:36) Lactic Acid Analyzer (01/16/22 07:36) Lipase (01/16/22 07:36) Magnesium (01/16/22 07:36) Protime With Inr (01/16/22 07:36) Partial Thromboplastin Time (01/16/22 07:36) Ua Culture If Indicated (01/16/22 07:36) Stool Culture (01/16/22 07:36) Probnp Fs (01/16/22 07:36) Troponin I Fs (01/16/22 07:36) Chest 1 View Ap/Pa Only (01/16/22 07:36) Ct Abdomen/Pelvis W (01/16/22 07:36) Ed Iv/Invasive Line Start (01/16/22 07:39) Ns Iv 1000 Ml (Sodium Chloride 0.9%) (01/16/22 07:45) Ketorolac Injection (Toradol Injection) (01/16/22 07:45) Famotidine Injection (Pepcid Injection) (01/16/22 07:45) Iohexol Injection (Omnipaque 350 Mg/Ml 1 (01/16/22 08:15) Received Contrast (Hold Metformin- Contr (01/16/22 08:15) Sodium Chloride Flush (Catheter Flush Sy (01/16/22 08:15) Ns (Ivpb) (Sodium Chloride 0.9% Ivpb Bag (01/16/22 08:15) Folic Acid Tablet (Folic Acid Tablet) (01/16/22 08:15) Thiamine Injection (Vitamin B-1 Injectio (01/16/22 09:00) Medications Given in ED Current Medications Medications Dose Ordered Sig/Manda Route Start Time Stop Time Status Last Admin Dose Admin Famotidine 20 mg ONCE ONCE IVP 01/16/22 07:45 01/16/22 07:46 DC 01/16/22 07:48 20 MG Folic Acid 1 mg ONCE ONCE PO 01/16/22 08:15 01/16/22 08:16 DC 01/16/22 08:45 1 MG Iohexol 100 ml ONCE ONCE IV 01/16/22 08:15 01/16/22 08:16 DC 01/16/22 08:24 100 ML Ketorolac Tromethamine 15 mg ONCE ONCE IVP 01/16/22 07:45 01/16/22 07:46 DC 01/16/22 07:48 15 MG Sodium Chloride 10 ml NEEDED PRN IV 01/16/22 08:15 01/16/22 08:24 10 ML Sodium Chloride 100 ml ONCE ONCE IV 01/16/22 08:15 01/16/22 08:16 DC 01/16/22 08:24 100 ML Vital Signs/I&O 01/16/22 07:30 Temp 36.7 Pulse 96 Resp 17 B/P (MAP) 136/86 (103) O2 Delivery Room Air Capillary Refill : Progress Note : Progress Note 1. CHEST PAIN/ ABDOMINAL PAIN: DUE TO ALCOHOL INTOXICATION WITH CHRONIC ALCOHOL ABUSE & DEPENDENCE: -EKG/troponin: non-ischemic -CXR: normal - CT ABD/ PELVIS:normal -Labs overall unreamrakable except: -s. ETOH is elevated to 196 with elevated AST level -NS IVF bolus -Toradol IV/Pepcid IV/ Thiamine iv/ folic acid tablet STAT - Pt feels and appears better - Advised rehab and alcohol cessation. Pt stated she is not interested at this time, but will think about it - Follow up with PCP in the next 3 days 2. MARIJUANA & AMPHETAMINE ABUSE: - Pt was not forthcoming during H&P regarding drug and alcohol history -Advised to stop drug and alcohol use. Diagnostic Imaging Diagonstic Imaging: Xray, CT Plain Films/CT/US/NM/MRI: chest, abdomen Comments [facility]. [place], [place] NAME: NELLY GALEANO MED REC#: [id number] PT STATUS: REG ER : 1970 PHYSICIAN: LUKE QUIROGA MD ADMIT DATE: 01/16/22/ER FS Draft Date of Exam:01/16/22 CT ABDOMEN/PELVIS W EXAMINATION: CT abdomen and pelvis with intravenous contrast. TECHNIQUE: Multiple contiguous axial images were obtained through the abdomen and pelvis after the uneventful administration of intravenous contrast. All CT scans use one or more of the following dose optimizing techniques: automated exposure control, MA and/or KvP adjustment based on patient size and exam type or iterative reconstruction. HISTORY: Abdominal pain COMPARISON: 09/28/2021 FINDINGS: Limited views of the lower thorax are unremarkable. The liver is normal without focal lesion. There is no biliary ductal dilation. Gallbladder is normal. Pancreas is normal. Spleen is normal. Adrenal glands are normal. The kidneys are normal. There is no hydronephrosis. Urinary bladder is normal. Bowel is normal in caliber without obstruction or inflammation. The appendix is normal. No free fluid or air. No abdominal or pelvic lymphadenopathy. Aorta is normal in caliber without aneurysm. There are no suspicious osseus lesions. IMPRESSION: 1. No acute abnormality in the abdomen or pelvis. Dictated on workstation # [id number] Dict: 01/16/22 0854 Trans: 01/16/22 0858 CVB [id number] Interpreted by: BELLO SLOAN MD Electronically signed by: [facility], [place] NAME: NELLY GALEANO [facility] REC#: [id number] PT STATUS: REG ER : 1970 PHYSICIAN: LUKE QUIROGA MD ADMIT DATE: 01/16/22/ER FS Draft Date of Exam:01/16/22 CHEST 1 VIEW AP/PA ONLY EXAMINATION: Chest 1 view HISTORY: chest pain COMPARISON: 08/27/2021 FINDINGS: The lungs are clear without edema or pneumonia. No pleural effusion or pneumothorax. Heart size is normal. IMPRESSION: 1. Clear lungs. Dictated on workstation # [id number] Dict: 01/16/22 0755 Trans: 01/16/22 0757 CVB [id number] Interpreted by: BELLO SLOAN MD Electronically signed by: Departure Impression Primary Impression: Alcohol intoxication Qualified Codes: F10.920 - Alcohol use, unspecified with intoxication, uncomplicated Additional Impressions: Alcohol dependence Qualified Codes: F10.20 - Alcohol dependence, uncomplicated Marijuana abuse Amphetamine abuse Disposition: HOME, SELF-CARE Condition: Improved Departure-Patient Inst. Referrals: VIBHA LOGAN APRN (PCP) Primary Care Physician [facility] (Family) Primary Care Physician Patient Instructions: Effects of Alcohol on Your Health Add. Discharge Instructions: Advised to stop alcohol and drug abuse. Advised rehab Follow-up with PCP within the next 3 to 5 days Advised to keep hydrated LUKE QUIROGA MD Jan 16, 2022 07:36
[2022-01-16 07:44] LABS: BASOPHILS # (AUTO) 0.1 10^3/uL (0.0-0.1); BASOPHILS % (AUTO) 1 % (0-10); EOSINOPHILS # (AUTO) 0.1 10^3/uL (0.0-0.3); EOSINOPHILS % (AUTO) 1 % (0-10); HEMATOCRIT 45 % (35-52); HEMOGLOBIN 15.3 g/dL (11.5-16.0); LYMPHOCYTES # (AUTO) 1.8 10^3/uL (1.0-4.0); LYMPHOCYTES % (AUTO) 39 % (12-44); MEAN CORPUSCULAR HEMOGLOBIN 31 pg (25-34); MEAN CORPUSCULAR HGB CONC 34 g/dL (32-36); MEAN CORPUSCULAR VOLUME 91 fL (80-99); MEAN PLATELET VOLUME 9.3 fL (9.0-12.2); MONOCYTES # (AUTO) 0.3 10^3/uL (0.0-1.0); MONOCYTES % (AUTO) 7 % (0-12); NEUTROPHILS # (AUTO) 2.3 10^3/uL (1.8-7.8); NEUTROPHILS % (AUTO) 51 % (42-75); PLATELET COUNT 236 10^3/uL (130-400); WHITE BLOOD COUNT 4.5 10^3/uL (4.3-11.0)
[2022-01-16] MEDS ORDERED: FAMOTIDINE 20MG/2ML IV (PEPCID) IVP ONE (07:45)
[2022-01-16] MEDS ORDERED: NS IV 1000 ML 1,000 ML IV SCH (07:45)
[2022-01-16] MEDS ORDERED: KETOROLAC 30 MG/ML VIAL IVP ONE (07:45)
[2022-01-16 07:53] LABS: INR 0.9 (0.8-1.4); PROTHROMBIN TIME PATIENT 12.5 SEC (12.2-14.7)
--- NOTE | 2022-01-16 07:57 | Diagnostic Imaging Report ---
EXAMINATION: Chest 1 view HISTORY: chest pain COMPARISON: 08/27/2021 FINDINGS: The lungs are clear without edema or pneumonia. No pleural effusion or pneumothorax. Heart size is normal. IMPRESSION: 1. Clear lungs. Dictated by: Dictated on workstation # [id number]
[2022-01-16 08:00] LABS: ALANINE AMINOTRANSFERASE 43 U/L (0-55); ALBUMIN 4.8 GM/DL (3.2-4.5); ALKALINE PHOSPHATASE 116 U/L (40-136); BILIRUBIN,TOTAL < 0.2 MG/DL (0.1-1.0); BUN/CREATININE RATIO 32; CALCIUM 9.2 MG/DL (8.5-10.1); CARBON DIOXIDE 28 MMOL/L (21-32); CHLORIDE 102 MMOL/L (98-107); CREATININE SERUM 0.74 MG/DL (0.60-1.30); GFR ESTIMATED 98; GLUCOSE 92 MG/DL (70-105); LIPASE 41 U/L (8-78); MAGNESIUM 2.2 MG/DL (1.6-2.4); POTASSIUM 3.8 MMOL/L (3.6-5.0); SODIUM 143 MMOL/L (135-145); TOTAL PROTEIN 8.1 GM/DL (6.4-8.2)
[2022-01-16 08:02] LABS: FIBRIN DEGRADATION PRODUCTS 0.13 UG/ML (0.00-0.49)
[2022-01-16] MEDS ORDERED: CATHETER FLUSH 10 ML SYR IV PRN (08:15)
[2022-01-16] MEDS ORDERED: IOHEXOL 350 MG/ML 100 ML (OMNIPAQUE 350) VIAL IV ONE (08:15)
[2022-01-16] MEDS ORDERED: FOLIC ACID 1 MG TAB PO ONE (08:15)
[2022-01-16] MEDS ORDERED: NS 100 ML (IVPB) BAG IV ONE (08:15)
[2022-01-16] MEDS ORDERED: HOLD METFORMIN - RECEIVED CONTRAST 20 ML VIAL IV SCH (08:15)
--- NOTE | 2022-01-16 08:58 | Diagnostic Imaging Report ---
EXAMINATION: CT abdomen and pelvis with intravenous contrast. TECHNIQUE: Multiple contiguous axial images were obtained through the abdomen and pelvis after the uneventful administration of intravenous contrast. All CT scans use one or more of the following dose optimizing techniques: automated exposure control, MA and/or KvP adjustment based on patient size and exam type or iterative reconstruction. HISTORY: Abdominal pain COMPARISON: 09/28/2021 FINDINGS: Limited views of the lower thorax are unremarkable. The liver is normal without focal lesion. There is no biliary ductal dilation. Gallbladder is normal. Pancreas is normal. Spleen is normal. Adrenal glands are normal. The kidneys are normal. There is no hydronephrosis. Urinary bladder is normal. Bowel is normal in caliber without obstruction or inflammation. The appendix is normal. No free fluid or air. No abdominal or pelvic lymphadenopathy. Aorta is normal in caliber without aneurysm. There are no suspicious osseus lesions. IMPRESSION: 1. No acute abnormality in the abdomen or pelvis. Dictated by: Dictated on workstation # [id number]
[2022-01-16] MEDS ORDERED: THIAMINE INJECTION 100 MG in NS (IVPB) 50 ML IV SCH (09:00)
[2022-01-16 09:28] LABS: BILIRUBIN,URINE NEGATIVE (NEGATIVE); CLARITY,URINE CLEAR; COLOR,URINE YELLOW; GLUCOSE, URINE (UA) NEGATIVE (NEGATIVE); KETONES,URINE NEGATIVE (NEGATIVE); LEUKOCYTE ESTERASE ,URINE NEGATIVE (NEGATIVE); NITRITE,URINE NEGATIVE (NEGATIVE); PH,URINE 6.5 (5-9); PROTEIN,URINE TRACE (NEGATIVE)
[2022-01-16 09:41] LABS: HCG,QUALITATIVE URINE NEGATIVE (NEGATIVE)
[2022-01-16 09:45] LABS: AMPHETAMINE SCREEN, URINE POSITIVE (NEGATIVE); BARBITURATE SCREEN URINE NEGATIVE (NEGATIVE); BENZODIAZEPINES SCREEN URINE POSITIVE (NEGATIVE); CANNABINOID SCREEN, URINE POSITIVE (NEGATIVE); COCAINE SCREEN URINE NEGATIVE (NEGATIVE); METHADONE STAT NEGATIVE (NEGATIVE); OPIATE SCREEN URINE NEGATIVE (NEGATIVE); OXYCODONE STAT NEGATIVE (NEGATIVE); PROPOXYPHENE STAT NEGATIVE (NEGATIVE); TRICYCLIC ANTIDEPRESSANTS SCRE NEGATIVE (NEGATIVE)
[2022-01-16 09:46] LABS: BACTERIA,URINE MODERATE /HPF; SQUAMOUS EPITHELIAL CELL,UR 25-50 /HPF; TRIPLE PHOSPHATE CRYSTAL,UR FEW /LPF
[2022-01-16 10:43] VITALS: BP 129/72
== END 2022-01-16 10:43 | disposition home or self-care (01) ==
LOC: ER FS 07:30 → EDUNIT# 07:30 → ER FS 10:43
DX: F10.229 Alcohol dependence with intoxication, unspecified (principal); F12.10 Cannabis abuse, uncomplicated; F15.10 Other stimulant abuse, uncomplicated; Z28.310 Unvaccinated for COVID-19; Y90.6 Blood alcohol level of 120-199 mg/100 ml
CPT/HCPCS: 36415; 71045; 74177; 80053; 80306; 81000; 83605; 83690; 83735; 83880; 84484; 84703; 85025; 85379; 85610; 85730; 93005; 99284; G0480; 80320; Q9967

== ENCOUNTER 2022-08-02 16:21 | Emergency (ER) | payer SELFPAY ==
[~2022-08-02] VITALS: Ht 160 cm; Wt 72.5 kg
[2022-08-02 16:21] VITALS: BP 0/0
--- NOTE | 2022-08-02 16:30 | ED CPR ---
HPI-CPR General Stated Complaint: UNREPONSIVE Source of Information: EMS, Police Exam Limitations: Other (unresponsive with CPR in progress) History of Present Illness Date Seen by Provider: Aug 02, 2022 Time Seen by Provider: 16:20 Initial Comments 51-year-old female presents with CPR in progress. Unknown past medical history however she is living with a friend. He came home for lunch at noon and according to the police to go wine bottle away from her. He left at 430 and when he came home found her hanging from a landing with a sheet around her neck. Police and EMS were dispatched as she was unresponsive. Paramedics found her pulseless and immediately began ACLS protocols. She was intubated in route. On arrival she has a deep edematous ligature ulises embedded in her neck that appears old. Slight rigor mortis has set in. 1 round of CPR was initiated and pulse check revealed persistent asystole. Time of called at 1624 Allergies and Home Medications Allergies Coded Allergies: No Known Drug Allergies (Unverified , 05/29/21) Patient Home Medication List Home Medication List Reviewed: No Folic Acid (Folic Acid) 1 Mg Tablet, 1 MG PO DAILY Prescribed by: ADI LOMELI on 10/04/21 0940 Hydroxyzine HCl (Hydroxyzine HCl) 25 Mg Tablet, 25 MG PO Q6H PRN for ANXIETY Prescribed by: ADI LOMELI on 10/04/21 0959 Levothyroxine Sodium (Levothyroxine Sodium) 50 Mcg Tablet, 50 MCG PO DAILY, (Reported) Entered as Reported by: GETACHEW TELLO on 09/29/21 1156 Metoclopramide HCl (Metoclopramide HCl) 10 Mg Tablet, 10 MG PO Q6H PRN for NAUSEA/VOMITING-3RD LINE Prescribed by: ADI LOMELI on 10/04/21 1000 Multivitamin/Iron/Folic Acid (Tab-A-Antonella Multivit with Iron) 1 Each Tablet, 1 EA PO DAILY@0700 Prescribed by: ADI LOMELI on 10/04/21 0940 Ondansetron (Ondansetron Odt) 4 Mg Tab.rapdis, 4 MG PO Q6H PRN for NAUSEA/VOMITING-1ST LINE Prescribed by: ADI LOMELI on 10/04/21 0959 Pantoprazole Sodium (Pantoprazole Sodium) 40 Mg Tablet.dr, 40 MG PO DAILY Prescribed by: AID LOMELI on 10/04/21 1000 Thiamine HCl (Vitamin B-1) 100 Mg Tablet, 100 MG PO DAILY@0700 Prescribed by: ADI LOMELI on 10/04/21 0940 Review of Systems Review of Systems Constitutional: other (Unable to obtain review of systems due to acuity) Past Ctoildc-Nsggns-Bmdwuc Hx Immunizations Up To Date First/Initial COVID19 Vaccinat: Not currently vaccinated Second COVID19 Vaccination Grzegorz: Not currently vaccinated Third COVID19 Vaccination Date: Not currently vaccinated Past Medical History Surgery/Hospitalization HX: ANXIETY; DEPRESSION,Hypothyroid, Alcohol Abuse All social medical surgical and family history obtained is what was in the records already. Unable to obtain current information due to acuity Surgeries: No Respiratory: No Cardiac: No Neurological: No Reproductive Disorders: No Genitourinary: No Gastrointestinal: No Musculoskeletal: No Endocrine: No Hypothyroidsim HEENT: No Loss of Vision: Denies Hearing Impairment: Denies Cancer: No Psychosocial: Yes Anxiety, PTSD, Depression Integumentary: No Blood Disorders: No Family Medical History No Pertinent Family Hx Physical Exam Vital Signs Capillary Refill : Height, Weight, BMI Height: '" Weight: lbs. oz. kg; 21.00 BMI Method: General Appearance: Other (Unresponsive, CPR in progress) HEENT: Other (Pupils bilaterally fixed and dilated ET tube in place with bag valve ventilation) Neck: Other (Deep edematous ligature ulises the anterior neck bilaterally) Respiratory: Other (Equal breath sounds with bagging) Cardiovascular: Other (Asystole) Gastrointestinal: Distended Neurologic/Psychiatric: Other (Unresponsive, no purposeful movements) Skin: Other (Cool to the touch) Departure Communication (Admissions) Patient arrives with CPR in progress. She has a deeply indented, edematous ligature ulises around her neck. Last known well time was at 1230. Ligature ulises appears to been present for some time and she was found hanging from a landing reportedly by the trauma nurse of the home where she was staying. Please confirm this. She has had about 30 minutes of CPR at the time of arrival. Slight rigor mortis is set in and she is unresponsive with asystole as her prevailing rhythm even on EMS arrival. Time of called at 1624 Impression Primary Impression: Asphyxiation and strangulation Qualified Codes: T71.194A - Asphyxiation due to mechanical threat to breat arsenio due to other causes, undetermined, initial encounter Additional Impressions: Cardiac arrest Respiratory arrest Disposition: 20 Condition: Departure-Patient Inst. Referrals: [facility] (PCP/Family) Primary Care Physician JACK MCCRACKEN DO Aug 02, 2022 16:30
== END 2022-08-02 17:00 | disposition expired ==
LOC: EDUNIT# 16:21 → ER FS 16:22
DX: T71.194A Asphyxiation due to mechanical threat to breathing due to other causes, undetermined, initial encounter (principal); I46.9 Cardiac arrest, cause unspecified
CPT/HCPCS: 36680